=== PATIENT | male | born 1935 | race Caucasian/White ===

== ENCOUNTER → 2016-09-06 | Outpatient (CLI) | payer OTHER, MEDICARE ==
[~2016-09-06] MED LIST: ASPI81TA28 PO; HYDR25TA4 PO; LEUP30IN3 IM; LISI40TA PO; METO100T44 PO; MULT-513 PO; SIMV20TA2 PO
[2016-09-06 12:54] LABS: BLOOD UREA NITROGEN 21 mg/dl (7-18)
[2016-09-06 12:58] LABS: PROSTATE SPECIFIC ANTIGEN < 0.010 ng/ml (0.000-4.000)
== END | disposition home or self-care (01) ==
LOC: C.LABBFT 08:22
PROVIDERS: ATTEND Urology
DX: C77.5 Secondary and unspecified malignant neoplasm of intrapelvic lymph nodes (principal)

== ENCOUNTER → 2016-09-28 | Outpatient (CLI) | payer OTHER, MEDICARE ==
--- NOTE | 2016-10-06 12:07 | CODING QUERY MEDICAL NECESSITY ---
CQSUPPORTING DIAGNOSIS NEEDED A supporting diagnosis is required for the test/procedure performed on this patient in order for us to be reimbursed by the patient's insurance. Please provide a supporting diagnosis for the following test/procedure listed below next to the test name along with your signature. *If there is no additional diagnosis for this patient that would support the following test/procedure please document that below next to the test/procedure. Test(s)/Procedure(s) that require a supporting diagnosis: AB 09/28/16 [employer] D[employer] STUDY Provider Signature: Date: Thank you Elisha Vuong Health Information Management Once completed, please kindly fax back to [phone] For questions please call [phone]
== END | disposition home or self-care (01) ==
LOC: C.MAMM 07:45
PROVIDERS: ATTEND Urology
DX: C61 Malignant neoplasm of prostate (principal); C77.5 Secondary and unspecified malignant neoplasm of intrapelvic lymph nodes

== ENCOUNTER → 2017-08-08 | Outpatient (CLI) | payer OTHER, MEDICARE ==
[2017-08-08 12:28] LABS: BLOOD UREA NITROGEN 17 mg/dl (7-18); CREATININE 0.99 mg/dl (0.60-1.40)
== END | disposition home or self-care (01) ==
LOC: C.LABBFT 08:51
PROVIDERS: ATTEND Urology
DX: R32 Unspecified urinary incontinence (principal)

== ENCOUNTER 2019-01-13 13:42 | Inpatient (IN) ==
[2019-01-13] MEDS ORDERED: SODIUM CHLORIDE 0.9% 1000ML 1,000 ML IV SCH (14:00)
--- NOTE | 2019-01-13 14:14 | CT Scan Report ---
CT head/brain wo con CLINICAL HISTORY: 83 years-old Male with syncope. Acute syncope TECHNIQUE: Multiple axial CT images of the head were obtained without contrast. A dose lowering tech nique was utilized adhering to the principles of ALARA. CT DOSE: 614.27 mGy.cm COMPARISON: None. FINDINGS: No acute intracranial hemorrhage, midline shift, intracranial mass, hydrocephalus, territorial ischem ia or abnormal extra-axial collection. Age-related involutional changes. Mild patchy white matter hyp odensities suggest chronic microvascular ischemic disease. The calvarium is intact. The paranasal sinuses, mastoid air cells, and middle ear cavities are clear . IMPRESSION: No acute intracranial abnormality or calvarial fracture. The above report was generated using voice recognition software. It may contain grammatical, syntax o r spelling errors. Electronically signed by: Edward Trent M.D. 01/13/2019 2:13 PM
--- NOTE | 2019-01-13 14:15 | XRay Report ---
XR chest 1V portable HISTORY: 83 years-old Male Syncope acute syncope COMPARISON: Chest radiograph 02/11/2016 TECHNIQUE: Portable AP view of the chest FINDINGS: Cardiac silhouette is enlarged, unchanged. No overt pulmonary edema, pneumothorax, pleural effusion o r focal airspace consolidation. Minimal linear subsegmental atelectasis/scarring of the lateral left midlung is unchanged. Degenerative changes are noted about the shoulders and spine. IMPRESSION: Cardiomegaly without acute process. The above report was generated using voice recognition software. It may contain grammatical, syntax o r spelling errors. Electronically signed by: Edward Trent M.D. 01/13/2019 2:14 PM
[2019-01-13 14:20] LABS: Basophils # (auto) 0.06 K/uL (0-0.2); Basophils % (auto) 1.2 %; Eosinophils # (auto) 0.14 K/uL (0-0.5); Eosinophils % (auto) 2.9 %; Hematocrit (blood only) 40.2 % (42-52); Hemoglobin 13.7 g/dL (14.0-18.0); Immature Granulocytes # (auto) 0.02 K/uL (0.00-0.02); Immature Granulocytes % (auto) 0.4 %; Lymphocytes # (auto) 0.87 K/uL (1.2-3.4); Lymphocytes % (auto) 17.8 %; Mean Corpuscular Hemoglobin 31.1 pg (25-34); Mean Corpuscular Hgb Conc 34.1 g/dL (32-36); Mean Corpuscular Volume 91.2 fL (80-100); Mean Platelet Volume 9.9 fL (7.4-10.4); Monocytes # (auto) 0.33 K/uL (0.11-0.59); Monocytes % (auto) 6.7 %; Neutrophils # (auto) 3.47 K/uL (1.4-6.5); Platelet Count 174 K/uL (130-400); RDW Coefficient of Variation 13.4 % (11.5-14.5); RDW Standard Deviation 44.2 fL (36.4-46.3); Red Blood Count 4.41 M/uL (4.7-6.1); White Blood Count 4.89 K/uL (4.8-10.8)
[2019-01-13 14:53] LABS: Alanine Aminotransferase 36 U/L (12-78); Albumin Globulin Ratio 0.9 (0.9-2); Albumin Level 3.5 gm/dl (3.4-5.0); Alkaline Phosphatase 75 U/L (45-117); Aspartate Aminotransferase 31 U/L (15-37); BUN Creatinine Ratio 19.5 (10-20); Bilirubin,Total 0.4 mg/dl (0.2-1); Blood Urea Nitrogen 22 mg/dl (7-18); Calcium 8.6 mg/dl (8.5-10.1); Carbon Dioxide 29 mmol/L (21-32); Chloride 101 mmol/L (98-107); Creatinine Clr Calc Pharmacy 66.8 ml/min; Est GFR (African American) 70.6; Est GFR (Non-African American) 60.9; Globulin 3.8 gm/dl (2.5-4.0); Glucose 90 mg/dl (70-99); Magnesium 1.9 mg/dl (1.8-2.4); Potassium 4.6 mmol/L (3.5-5.1); Sodium 136 mmol/L (136-145); Total Protein 7.3 gm/dl (6.4-8.2); Troponin I < 0.015 ng/ml (0-0.045)
[2019-01-13 15:29] LABS: Appearance Urine Clear (Clear); Bilirubin Urine Negative (Negative); Blood Urine Negative (Negative); Color Urine Yellow; Glucose Urine UA Negative (Negative); Ketones Urine Negative (Negative); Leukocyte Esterase Urine Negative (Negative); Nitrite Urine Negative (Negative); Protein Urine Negative (Negative); Specific Gravity Urine 1.013 (1.000-1.030); Urobilinogen Urine Negative (Negative); pH Urine 7.5 (4.5-7.5)
--- NOTE | 2019-01-13 16:38 | Emergency Department Note ---
Entered by Candelaria Brown acting as a scribe for Johnathan Moss DO History of Present Illness General Chief complaint: Syncope Stated complaint: syncope Time Seen by Provider: 01/13/19 13:43 Source: patient and family (daughter) History of Present Illness Onset (ago): hour(s) 1 Location: head Pain Consistency: + other (episodic ) Quality: + other (syncopal episode) Associated symptoms: + other (Positive feeling of warmth prior to syncopal episode, eyes rolling into back of head during episode, dizziness, and lightheadednessNegative diarrhea, urinary symptoms, falling to the ground); no chest pain, no nausea/vomiting and no shortness of breath The patient is a 83 year old male who presents to the ED with complaints of a 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 As per EMS, the patient went o utside to get the mail and when he came back inside, he felt hot and had a syncopal episode. The patient states he remembers going outside to get the mail and going back inside the house. During this time, he notes he felt very warm and flush. He states he was reading the mail when he suddenly felt dizzy and lightheaded, and passed out. He is accompanied by his daughter who states the patient's eyes rolled back into his head, but it was unlike a seizure, and he was diaphoretic. She states his head hit the top corner of the stove but they caught him and lowered him to the ground. Pt denies any nausea, vomiting, diarrhea, urinary symptoms, falling to the ground, chest pain, SOB. Home Medications Home Medications Medication Instructions Recorded Confirmed Type aspirin 81 mg tablet 81 mg PO DAILY tab 10/20/18 01/13/19 History hydrochlorothiazide 25 mg tablet 25 mg PO DAILY tab 10/20/18 01/13/19 History lisinopril 40 mg tablet 40 mg PO DAILY tab 10/20/18 01/13/19 History metoprolol succinate ER 100 mg 100 mg PO HS tab 10/20/18 01/13/19 History tablet,extended release 24 hr simvastatin 20 mg tablet 20 mg PO HS tab 10/20/18 01/13/19 History Allergies Allergy/AdvReac Type Severity Reaction Status Date / Time bee venom protein (honey bee) Allergy Unknown UNKNOWN Verified 01/13/19 14:27 Penicillins Allergy Unknown RASH Verified 01/13/19 14:27 Bee sting Allergy Unknown Unknown Uncoded 01/13/19 14:27 Penicillins Allergy Unknown Unknown Uncoded 01/13/19 14:27 Wasp Allergy Unknown Unknown Uncoded 01/13/19 14:27 Past Med/Surg History Medical History Atrial fibrillation (Chronic) Prostate cancer (Acute) Surgical History No significant past surgical history Social History current occupational status: retired Feels Safe at Home: Yes Smoking Status: Former smoker Number of Years Since Quit: 30 ; Hx Alcohol Use: No Hx Substance Use: No Review of Systems See HPI for pertinent positives & negatives. and A total of 10 systems reviewed and were otherwise negative Physical Exam Vital Signs Vital Signs - 24 hr 01/13/19 13:52 01/13/19 13:54 01/13/19 13:57 Temperature 36.8 C Temperature Source Oral Sepsis Recent Fever Within 48 Hours No Sepsis Action Taken by Nursing No Action Required Pulse Rate 73 Pulse Rate [Right Finger] Pulse Rhythm [Right Finger] Pulse Strength [Right Finger] Respiratory Rate 17 Respiratory Effort / Characteristics Respiratory Depth Respiratory Pattern Blood Pressure 118/71 Blood Pressure [Right Arm] Blood Pressure Mean 86 Blood Pressure Mean [Right Arm] Blood Pressure Position [Right Arm] Pulse Oximetry 97 97 Oxygen Delivery Method Room Air Room Air Room Air 01/13/19 14:32 01/13/19 15:33 Temperature Temperature Source Sepsis Recent Fever Within 48 Hours Sepsis Action Taken by Nursing Pulse Rate Pulse Rate [Right Finger] 58 L 64 Pulse Rhythm [Right Finger] Regular Pulse Strength [Right Finger] Normal Respiratory Rate 20 18 Respiratory Effort / Characteristics Non-Labored Spontaneous Respiratory Depth Normal Respiratory Pattern Regular Blood Pressure Blood Pressure [Right Arm] 154/89 H 148/107 H Blood Pressure Mean Blood Pressure Mean [Right Arm] 110 120 Blood Pressure Position [Right Arm] Lying Pulse Oximetry 95 95 Oxygen Delivery Method Room Air Room Air GENERAL: Sitting up in bed. Wearing hospital gown. Disheveled. Non-toxic HEAD: Small contusion to the left frontal region. EYE EXAM: normal conjunctiva, PERRL and EOM's intact OROPHARYNX: no exudate, no erythema, lips, buccal mucosa, and tongue normal and mucous membranes are moist NECK: supple, no nuchal rigidity, no adenopathy, non-tender LUNGS: Clear to auscultation. Normal chest wall mechanics HEART: no murmurs, S1 normal and S2 normal ABDOMEN: abdomen soft, non-tender, normo-active bowel sounds, no masses, no rebound or guarding. BACK: Back is symmetrical on inspection and there is no deformity, no midline tenderness, no CVA tenderness. SKIN: no rashes and no bruising UPPER EXTREMITIES: upper extremities are grossly normal. LOWER EXTREMITIES: No pitting edema. NEURO EXAM: Normal sensorium, cranial nerves II-XII intact, normal speech, no weakness of arms, no weakness of legs. No drift. Finger to nose intact. Gross sensation intact. Course ED COURSE: Vital signs were reviewed and showed normotensive. The patients medical record was reviewed The above diagnostic studies were performed and reviewed. ED treatments and interventions as stated above. 1348: The patient was evaluated in room B6. A complete history and physical examination was performed. 1530: I updated the patient at this time. 1546: Discussed the patient's case wih Dr. Estelle Peña, [facility] Hospitalist. The patient will be evaluated for further management. 1550: Upon reevaluation, the patient is feeling better, I discussed my findings with the patient and he understands and agrees with the treatment plan. Based on the patients age, coexisting illnesses, exam and lab findings the decision to treat as an inpatient was made. The patient remained stable while under my care. The patient will be evaluated for further management. Administered Medications Discontinued Medications Sodium Chloride (Nss 1000ml) 1,000 mls @ 999 mls/hr IV .Q1H1M NORBERTO Stop: 01/13/19 15:00 Last Infusion: 01/13/19 15:32 Dose: 0 mls/hr Documented by: [id number] Admin: 01/13/19 14:31 Dose: 999 mls/hr Documented by: [id number] Medical Decision Making Differential Diagnosis Differential diagnosis: Etiologies such as vasovagal event, infection, hypoglycemia, electrolyte abnormalities, cardiac sources, intracerebral event, toxicologic, neurologic, as well as others were entertained. Medical Records Attestation: I reviewed the patient's medical records. Home Medications Current Medication List: was personally reviewed by me Laboratory Data Attestation: I reviewed the patient's lab results. Result diagrams: 01/13/19 14:10 01/13/19 14:10 Lab Results 01/13/19 01/13/19 01/13/19 Range/Units 14:10 14:10 15:19 WBC 4.89 (4.8-10.8) K/uL RBC 4.41 L (4.7-6.1) M/uL Hgb 13.7 L (14.0-18.0) g/dL Hct 40.2 L (42-52) % MCV 91.2 (80-100) fL MCH 31.1 (25-34) pg MCHC 34.1 (32-36) g/dL RDW Std Deviation 44.2 (36.4-46.3) fL RDW Coeff of [place] 13.4 (11.5-14.5) % Plt Count 174 (130-400) K/uL MPV 9.9 (7.4-10.4) fL Immature Gran % (Auto) 0.4 % Neut % (Auto) 71.0 % Lymph % (Auto) 17.8 % [place] % (Auto) 6.7 % Eos % (Auto) 2.9 % Baso % (Auto) 1.2 % Immature Gran # (Auto) 0.02 (0.00-0.02) K/uL Neut # (Auto) 3.47 (1.4-6.5) K/uL Lymph # (Auto) 0.87 L (1.2-3.4) K/uL [place] # (Auto) 0.33 (0.11-0.59) K/uL Eos # (Auto) 0.14 (0-0.5) K/uL Baso # (Auto) 0.06 (0-0.2) K/uL Sodium 136 (136-145) mmol/L Potassium 4.6 (3.5-5.1) mmol/L Chloride 101 (98-107) mmol/L Carbon Dioxide 29 (21-32) mmol/L Anion Gap 6.0 (3-11) BUN 22 H (7-18) mg/dl Creatinine 1.10 (0.6-1.4) mg/dl Est Cr Clr Drug Dosing 66.8 ml/min Est GFR ( Amer) 70.6 Est GFR (Non-Af Amer) 60.9 BUN/Creatinine Ratio 19.5 (10-20) Glucose 90 (70-99) mg/dl Calcium 8.6 (8.5-10.1) mg/dl Magnesium 1.9 (1.8-2.4) mg/dl Total Bilirubin 0.4 (0.2-1) mg/dl AST 31 (15-37) U/L ALT 36 (12-78) U/L Alkaline Phosphatase 75 (45-117) U/L Troponin I < 0.015 (0-0.045) ng/ml Total Protein 7.3 (6.4-8.2) gm/dl Albumin 3.5 (3.4-5.0) gm/dl Globulin 3.8 (2.5-4.0) gm/dl Albumin/Globulin Ratio 0.9 (0.9-2) TSH 2.080 (0.300-4.500) uIu/ml Specimen Hemolysis Urine Color Yellow Urine Appearance Clear (Clear) Urine pH 7.5 (4.5-7.5) Ur Specific [place] 1.013 (1.000-1.030) Urine Protein Negative (Negative) Urine Glucose (UA) Negative (Negative) Urine Ketones Negative (Negative) Urine Blood Negative (Negative) Urine Nitrite Negative (Negative) Urine Bilirubin Negative (Negative) Urine Urobilinogen Negative (Negative) Ur Leukocyte Esterase Negative (Negative) Imaging Data Radiologist's Impression: Radiology results as stated below per my review and the radiologist's interpretation: XR chest 1V portable HISTORY: 83 years-old Male Syncope acute syncope COMPARISON: Chest radiograph 02/11/2016 TECHNIQUE: Portable AP view of the chest FINDINGS: Cardiac silhouette is enlarged, unchanged. No overt pulmonary edema, pneumothorax, pleural effusion or focal airspace consolidation. Minimal linear subsegmental atelectasis/scarring of the lateral left midlung is unchanged. Degenerative changes are noted about the shoulders and spine. IMPRESSION: Cardiomegaly without acute process. The above report was generated using voice recognition software. It may contain grammatical, syntax or spelling errors. Electronically signed by: Edward Trent M.D. 01/13/2019 2:[address] head/brain wo con CLINICAL HISTORY: 83 years-old Male with syncope. Acute syncope TECHNIQUE: Multiple axial CT images of the head were obtained without contrast. A dose lowering technique was utilized adhering to the principles of ALARA. CT DOSE: 614.27 mGy.cm COMPARISON: None. FINDINGS: No acute intracranial hemorrhage, midline shift, intracranial mass, hydrocephalus, territorial ischemia or abnormal extra-axial collection. Age- related involutional changes. Mild patchy white matter hypodensities suggest chronic microvascular ischemic disease. The calvarium is intact. The paranasal sinuses, mastoid air cells, and middle ear cavities are clear. IMPRESSION: No acute intracranial abnormality or calvarial fracture. The above report was generated using voice recognition software. It may contain grammatical, syntax or spelling errors. Electronically signed by: Edward Trent M.D. 01/13/2019 2:13 PM ECG Data Attestation: I personally reviewed and interpreted this ECG as follows: Indication: syncope Rate (beats per minute): 66 Findings: + other (normal axis) and + T-wave inversion (Anterior and lead III); no PVC Comparison ECG Date: from (02/11/16) Change: no significant change Blood Pressure Blood Pressure Findings: Normal blood pressure Blood Pressure Disposition: did not require urgent referral MDM Narrative Patient is an 83-year-old male who presents the ER for syncopal episode about an hour prior to arrival. He notes he became lightheaded and passed out. There is no seizure activity. He was lowered to the ground but did hit his head off the counter. Patient denied any chest pain or shortness of breath. He was brought in by EMS. By the medics he was found to be bradycardic with heart rate in the 30sx2. IV was established blood work was obtained and showed no significant leukocytosis or anemia. BMP along with LFTs bilirubin troponin magnesium and TSH was unremarkable. UA was negative. CT head was negative. EKG was nondiagnostic. Chest x-ray without any focal infiltrate. Patient was updated bedside and discussed with hospitalist and admitted for further work-up for syncope with bradycardia. Impression & Plan Syncope, Bradycardia, Atrial fibrillation, Contusion of head Discharge Plan Visit Data Chief Complaint: Syncope Stated Complaint: syncope ED Provider: Johnathan Moss Discharge Problem: Syncope, Bradycardia, Atrial fibrillation, Contusion of head Patient Disposition: Being Evaluated by Hospitalist Forms Stand Alone Forms: [facility] Prescriptions Prescriptions: No Action lisinopril 40 mg tablet 40 mg PO DAILY RF: 0 hydrochlorothiazide 25 mg tablet 25 mg PO DAILY RF: 0 aspirin 81 mg tablet 81 mg PO DAILY RF: 0 simvastatin 20 mg tablet 20 mg PO HS RF: 0 metoprolol succinate 100 mg tablet extended release 24 hr 100 mg PO HS RF: 0 Referrals Referrals: Dio Soni III, MD [Primary Care Provider] - The scribe's documentation has been prepared under my direction and personally reviewed by me in its entirety. I confirm that the note above accurately reflects all work, treatment, procedures, and medical decision making performed by me.
--- NOTE | 2019-01-13 16:39 | History & Physical Report ---
Date of Service January 13, 2019 Assessment & Plan (1) Syncope: Uncertain etiology, noted to be bradycardic to the 30s on arrival but improved to 60s-70s s/p IVF Possible vasovagal response to being overheated Monitor on tele Trop neg x1, serials pending ECHO pending CXR, UA neg for infection CBC, PRP WNL TSH WNL t/c lyme testing if ongoing issues CT head neg for acute (2) Bradycardia: As above (3) Atrial fibrillation: continue home meds Aspirin 81mg (4) Prostate CA: Follows with Dr. Christine Initial dx was 25 yrs ago, s/p prostatectomy States he was on leupron about a year ago but PSA was WNL and he was gaining weight, so this was stopped Follows Q6 months (5) HTN (hypertension): continue home meds (6) Hyperlipidemia: continue home meds (7) DVT prophylaxis: SCDs, aspirin Avoid more aggressive Rx given likely short duration of admission History of Present Illness Primary Care Provider: Dio Soni MD 83 y/o M c/o syncopal episode. Pt states he has been in his usual state of health. 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 He states their house is set of 70 degrees and he thought it was quite warm this morning. He was about to drink coffee, but then noted how over heated he felt quite sweaty. He decided to have lemonade instead. He went outside were it was cooler to drink this. He felt a bit better and came inside. He put his coffee in the microwave to warm it but then suddenly felt unsteady. 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 She came in but pt had further LOC and fell to the floor. He did hit the L side of his head on the stove. He states he was told he was out for about 2 minutes. He was brought to the ED for further eval. Pt was noted to be bradycardic to the 30s on arrival, however this improved to the 60s s/p IVF. Pt states he currently feels fine. Pt denies fever, SOB, chest pain, abd pain, n/v/c/d, LE pain or swelling. Allergies Allergy/AdvReac Type Severity Reaction Status Date / Time bee venom protein (honey bee) Allergy Unknown UNKNOWN Verified 01/13/19 14:27 Penicillins Allergy Unknown RASH Verified 01/13/19 14:27 Bee sting Allergy Unknown Unknown Uncoded 01/13/19 14:27 Penicillins Allergy Unknown Unknown Uncoded 01/13/19 14:27 Wasp Allergy Unknown Unknown Uncoded 01/13/19 14:27 Home Medications Home Medications Medication Instructions Recorded Confirmed Type aspirin 81 mg tablet 81 mg PO DAILY tab 10/20/18 01/13/19 History hydrochlorothiazide 25 mg tablet 25 mg PO DAILY tab 10/20/18 01/13/19 History lisinopril 40 mg tablet 40 mg PO DAILY tab 10/20/18 01/13/19 History metoprolol succinate ER 100 mg 100 mg PO HS tab 10/20/18 01/13/19 History tablet,extended release 24 hr simvastatin 20 mg tablet 20 mg PO HS tab 10/20/18 01/13/19 History Past Med/Surg History Medical History Atrial fibrillation (Chronic) Prostate cancer (Acute) Surgical History No significant past surgical history Family History Father Myocardial infarction Other No pertinent family history Social History current occupational status: retired Feels Safe at Home: Yes Smoking Status: Former smoker Number of Years Since Quit: 30 ; Hx Alcohol Use: No Hx Substance Use: No Review of Systems Review of Systems: Pertinent positives and negatives reviewed in HPI--all others negative Physical Exam Constitutional: WD/WN, vitals as above Eyes: normal visual vaca by confrontation and + anicteric sclerae Neck: normal visual inspection and trachea midline Respiratory: normal respiratory effort, lungs clear to auscultation Cardiovascular: Rate/Rhythm: regular rate; + abnormal rhythm Gastrointestinal (Abdomen): Inspection/Auscultation: abdomen not distended Percussion/Palpation: abdomen soft; abdomen nontender Musculoskeletal: Head/Neck/Chest: normocephalic and head atraumatic negative for edema, peripheral pulses intact Skin: no rashes, warm and dry Neurologic: awake; not confused Speech / Cognition: normal speech Psychiatric: A+Ox3, euthymic affect Results & Data Vital Signs (Past 12 Hours) Vital Signs Temp Pulse Pulse Resp BP BP Pulse Ox 01/13/19 15:33 64 18 148/107 H 95 01/13/19 14:32 58 L 20 154/89 H 95 01/13/19 13:57 97 01/13/19 13:52 36.8 C 73 17 118/71 97 Diagnostic Findings CXR: neg for acute CT head: neg for acute ECG Rhythm: atrial fibrillation Code Status & VTE Plan Code Status Full code, although pt states no prolonged mechanical life support, feeding tubes, etc VTE Prophylaxis Plan VTE Prophylaxis will be ordered: Yes PG Care Time/CCT Total # of Minutes Spent Total Time Spent with Patient: Total time spent is greater than 50% in coordination of care (as documented) at patient's floor/unit and/or counseling p atient: (1) Syncope Syncope type: unspecified Qualified Code(s): R55 - Syncope and collapse
[2019-01-13] MEDS ORDERED: ONDANSETRON INJ 2 MG/ML 2 ML VIAL IV PRN (18:09)
[2019-01-13] MEDS ORDERED: MAGNESIUM HYDROXIDE SUSP 30 ML UDC PO PRN (18:09)
[2019-01-13] MEDS ORDERED: ACETAMINOPHEN 325 MG TAB PO PRN (18:09)
[2019-01-13] MEDS ORDERED: SIMVASTATIN 20 MG TAB PO SCH (21:00)
[2019-01-13] MEDS ORDERED: METOPROLOL SUCC 50MG EXT REL TAB PO SCH (21:00)
[2019-01-14] MEDS ORDERED: lisinopriL 40 MG TAB PO SCH (09:00)
[2019-01-14] MEDS ORDERED: ASPIRIN 81 MG ECTAB PO SCH (09:00)
[2019-01-14] MEDS ORDERED: hydroCHLOROthiazide 25 MG TAB PO SCH (09:00)
--- NOTE | 2019-01-14 19:00 | Discharge Summary ---
Date of Service January 14, 2019 Admission HPI Per Admitting Provider 83 y/o M c/o syncopal episode. Pt states he has been in his usual state of health. 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 He states their house is set of 70 degrees and he thought it was quite warm this morning. He was about to drink coffee, but then noted how over heated he felt quite sweaty. He decided to have lemonade instead. He went outside were it was cooler to drink this. He felt a bit better and came inside. He put his coffee in the microwave to warm it but then suddenly felt unsteady. 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 She came in but pt had further LOC and fell to the floor. He did hit the L side of his head on the stove. He states he was told he was out for about 2 minutes. He was brought to the ED for further eval. Pt was noted to be bradycardic to the 30s on arrival, however this improved to the 60s s/p IVF. Pt states he currently feels fine. Pt denies fever, SOB, chest pain, abd pain, n/v/c/d, LE pain or swelling. Principal Diagnosis Syncopemost likely vasovagal, but also concerned about elements of bradycardia Discharge Exam In general he is awake and alert pleasant no distress. HEENT normocephalic atraumatic mucous membranes are moist. Breathing unlabored no accessory muscle use good effort. Skin shows no rashes no pallor or icterus. No focal neurologic deficits. EKG shows A. fib. He did have a 2.1-second pause on the monitor. Echocardiogram noted, no concerning findings Discharge Data Allergies Allergy/AdvReac Type Severity Reaction Status Date / Time bee venom protein (honey bee) Allergy Unknown UNKNOWN Verified 01/13/19 14:27 Penicillins Allergy Unknown RASH Verified 01/13/19 14:27 Bee sting Allergy Unknown Unknown Uncoded 01/13/19 14:27 Penicillins Allergy Unknown Unknown Uncoded 01/13/19 14:27 Wasp Allergy Unknown Unknown Uncoded 01/13/19 14:27 Consultations 01/13/19 15:37 ED Decision to Admit Stat Ordered Studies 01/13/19 13:51 CT head/brain wo con Stat Hospital Course (1) Syncope: His history is mostly consistent with a vasovagal response, and although he did hit his head on the way down, he seems to have suffered no significant fall out. The concern is that his heart rate was also 30s whenever EMS found him and he did have a 2.1-second pause, raising the concern that bradycardia may also have been a contributing factor. See below otherwise. He is stable for home. (2) Bradycardia: See above in terms of his 30 rate and the 2.1-second pause, because he is on a fairly significant dose of metoprolol and he is getting older, and his dose has been the same for quite a while, we discussed reducing the dose to 75 mg daily and ongoing following. I discussed that it would be prudent to have outpatient rhythm monitoring and will ask for this to be arranged through his sales and service associate. I suspect simply reducing the dose will help remedy this problem, although we did discuss there is a very outside chance this could progress to rhythm issues requiring a pacemaker. (3) Afib: Rate easily controlled, making highly unlikely to have RVR with a reduction of his metoprolol from 100 mg to 75, otherwise as above. Total Time Total Time Spent Total Time Spent (In Minutes): Greater than 30 Discharge Plan Discharge Items Patient Disposition: Home - Self-Care Reason For Visit: SYNCOPE Discharge Diagnosis: syncope (fainting spell) - see below Activity: Resume your previous activity Non-emergency contact: Primary Care Provider and Checker Call non-emergency contact if: you have any medication questions and your symptoms worsen Follow-up/Referrals: Dio Soni III, MD [Primary Care Provider] - Diet: Regular Addtl Attending Provider Instructions: syncope (fainting) -your fainting spell fit the most with what is called a "vasovagal" response - where blood vessels dilate when they shouldn't, causing a transient drop in blood pressure, made worse by heart rates not speeding up to keep up with the drop in pressure. -however, we also saw a few times where your heart rates were inappropriately slow -- and this can also lead to lightheadedness and occasional faints. for now, we'll lower the dose of your metoprolol to 75mg (it's a medication that typically is used to slow heart rates down with atrial fibrillation - so as we discussed, given that you've been on that dose for quite a while, it's possible that as you've gotten older you metabolize it more slowly and don't need as much as before) -- and then we'll ask Dr Barrera to get you set up for a heart monitor to keep an eye on heart rates out of the hospital for a week or so -if you feel weak/lightheaded/dizzy again, definitely get seen, but hopefully simply reducing the dose should be enough to keep you out of trouble Stand-Alone Forms: My [facility] Medications and DC Order Prescriptions: New metoprolol succinate [Toprol XL] 50 mg tablet extended release 24 hr 75 mg PO DAILY Qty: 45 RF: 0 Continued lisinopril 40 mg tablet 40 mg PO DAILY RF: 0 hydrochlorothiazide 25 mg tablet 25 mg PO DAILY RF: 0 aspirin 81 mg tablet 81 mg PO DAILY RF: 0 simvastatin 20 mg tablet 20 mg PO HS RF: 0 Discontinued metoprolol succinate 100 mg tablet extended release 24 hr 100 mg PO HS RF: 0 Discharge Orders: Discharge Order (Routine); Ordered 01/14/19 Ordered By: Johnathan Brown Admission Data Admit Date/Time: 01/13/19 16:32 Attending Provider: Johnathan Brown Admit Provider: Estelle Peña Primary Care Provider: Dio Soni III Other Providers: Estelle Peña Other Interventions: Discharge Summary Assessment (RN) Last Done: 01/14/19 16:00 DC Date/Time DO NOT enter until pt leaves facility: 01/14/19 17:16
== END 2019-01-14 17:16 | disposition home or self-care (01) | DRG 312 ==
LOC: ED 13:42 → 2W 16:32 → SUATTDRO 16:32 → 2W 17:17

== ENCOUNTER 2020-03-22 11:21 | Inpatient (IN) ==
[2020-03-22 12:29] LABS: Basophils # (auto) 0.01 K/uL (0-0.2); Basophils % (auto) 0.4 %; Eosinophils # (auto) 0.01 K/uL (0-0.5); Eosinophils % (auto) 0.4 %; Hematocrit (blood only) 37.9 % (42-52); Hemoglobin 13.2 g/dL (14.0-18.0); Lymphocytes # (auto) 0.38 K/uL (1.2-3.4); Lymphocytes % (auto) 14.1 %; Mean Corpuscular Hemoglobin 30.7 pg (25-34); Mean Corpuscular Hgb Conc 34.8 g/dL (32-36); Mean Corpuscular Volume 88.1 fL (80-100); Mean Platelet Volume 9.8 fL (7.4-10.4); Monocytes # (auto) 0.28 K/uL (0.11-0.59); Monocytes % (auto) 10.4 %; Neutrophils # (auto) 2.02 K/uL (1.4-6.5); Neutrophils % (auto) 74.7 %; Platelet Count 124 K/uL (130-400); RDW Coefficient of Variation 13.8 % (11.5-14.5); RDW Standard Deviation 44.4 fL (36.4-46.3)
[2020-03-22] MEDS ORDERED: SODIUM CHLORIDE 0.9% 1000ML 500 ML IV ONE (12:37)
[2020-03-22] MEDS ORDERED: SODIUM CHLORIDE 0.9% 500 ML IV SCH (12:45)
[2020-03-22 12:54] LABS: Alanine Aminotransferase 32 U/L (12-78); Albumin Level 3.3 gm/dl (3.4-5.0); Aspartate Aminotransferase 37 U/L (15-37); BUN Creatinine Ratio 19.2 (10-20); Blood Urea Nitrogen 20 mg/dl (7-18); Calcium 8.3 mg/dl (8.5-10.1); Carbon Dioxide 28 mmol/L (21-32); Chloride 97 mmol/L (98-107); Creatinine Clr Calc Pharmacy 68.6 ml/min; Est GFR (African American) 75.9; Est GFR (Non-African American) 65.5; Glucose 100 mg/dl (70-99); Potassium 3.9 mmol/L (3.5-5.1); Sodium 131 mmol/L (136-145)
[2020-03-22 12:59] LABS: Albumin Globulin Ratio 0.9 (0.9-2); Alkaline Phosphatase 80 U/L (45-117); Bilirubin,Total 0.5 mg/dl (0.2-1); Globulin 3.9 gm/dl (2.5-4.0); Total Protein 7.2 gm/dl (6.4-8.2); Troponin I < 0.015 ng/ml (0-0.045)
--- NOTE | 2020-03-22 13:14 | XRay Report ---
SINGLE VIEW CHEST CLINICAL HISTORY: Fever. FINDINGS: 2 AP, portable, upright chest radiographs are compared to study dated 02/22/2019. The exami nation is degraded by portable technique and patient rotation. The heart is enlarged noting atherosc lerotic calcification of the thoracic aorta. The pulmonary vasculature is noncongested. Enlargement o f the central pulmonary arteries suggests pulmonary artery hypertension. There are subtle hazy inters titial airspace opacities seen bilaterally. No large pleural effusion or pneumothorax is seen. The sk eletal structures are osteopenic. The bony thorax is grossly intact. IMPRESSION: 1. Cardiomegaly without radiographic evidence of congestive failure. 2. There are subtle hazy interstitial airspace opacities seen bilaterally. Correlate clinically for e vidence of a mild infectious/inflammatory pneumonitis. ACT 112: Negative or not required by law. Electronically signed by: Solomon Hector M.D. 03/22/2020 1:13 PM
--- NOTE | 2020-03-22 13:34 | CT Scan Report ---
CT SCAN OF THE BRAIN WITHOUT IV CONTRAST CLINICAL HISTORY: Syncope. Head injury. COMPARISON STUDY: CT of the brain dated 01/13/2019. TECHNIQUE: Unenhanced axial CT scan of the brain is performed from the vertex to the skull base. A do se lowering technique was utilized adhering to the principles of ALARA. CT DOSE: 614.27 mGy.cm FINDINGS: Brain parenchyma: There are age-related involutional changes noting mild subcortical and periventric ular microangiopathic change. There is no hemorrhage, mass effect, or evidence of acute territorial i schemia by CT criteria. Gaona-white matter differentiation is preserved. No extra-axial fluid collecti on is seen. Ventricles, sulci, cisterns: Prominent secondary to involutional change. Intracranial vasculature: Intracranial vessels at the skull base are normal as imaged. Calvarium: The skeletal structures are osteopenic. No depressed calvarial fracture is identified. Sinuses and mastoids: The visualized paranasal sinuses are clear. There is a small right mastoid effu cyntiha. The left mastoid air cells are well pneumatized. Orbits: The bony orbits are grossly intact. IMPRESSION: There is no hemorrhage, mass effect, or evidence of acute territorial ischemia by CT crit óscar. ACT 112: Negative or not required by law. Electronically signed by: Solomon Hector M.D. 03/22/2020 1:32 PM
[2020-03-22] MEDS ORDERED: DEXAMETHASONE SOD INJ 10 MG/ML VIAL IV ONE (13:58)
--- NOTE | 2020-03-22 14:33 | History & Physical Report ---
Date of Service March 22, 2020 Assessment & Plan (1) Syncope: Recurrent history of such - usually once a year. Suspected orthostasis/vasovagal in the setting of COVID-19, diarrhea and antihypertensives and having a shower. Monitor on telemetry for pauses, bradycardia - will continue his usual dose of metoprolol. Will continue on his usual metoprolol succinate but hold HCTZ. UA pending to assess for UTI - although no specific symptoms of this. (2) COVID-19: Dexamethasone given in ER however given lack of hypoxia will hold further doses of this given no hypoxia. (3) Diarrhea: NSS 1L overnight. Encourage PO intake after this. (4) Atrial fibrillation: No anticoagulation chronically due to recurrent rectal bleeding and hematuria. Rate control with metoprolol succinate. (5) HTN (hypertension): Continue lisinopril 40mg PO daily, hold HCTZ due to current dehydration. Monitor orthostatics as above. (6) Hyperlipidemia: Continue simvastatin 20mg PO HS (7) DVT prophylaxis: No anticoagulation secondary to recurrent rectal bleeds and hematuria per patient daughter. No SCDs due to risk of falls. Admission and Anticipated Discharge Date Admission Date: 03/22/2020 History of Present Illness Chief Complaint: Fall Primary Care Provider: Dio Soni MD Nash Singletary is an 84 year old male who presents to the ER after a fall. He reports this occurred earlier this morning. Unclear if he had symptoms prior to his fall after coming out of the shower however he did note feeling " strange" and he should be more careful. He denies any definitive chest pain, shortness of breath or dizziness. He does note 2 weeks of symptoms concerning for COVID- 19 including chills, productive cough " with a bit of redness" and now having diarrhea for the last 2 days. He has continued to take his medication including hydrochlorothiazide however has not taken any medications today. He completely lost consciousness and woke up with blood around his head. He denies any other injuries and currently denies any headache. Discussed with his daughter (Honey) who is a nurse at the [employer]. Patient deferred medical decisions to his daughter. She reports he is DNR/DNI. Request UA as prior urine infections have caused the patient to have a syncopal event. She reports he has a syncopal event usually once a year when he gets too dehydrated and has general poor oral intake therefore suspects with his diarrhea and poor oral intake likely lead to him passing out after having a shower. In the ER he had a chest x-ray concerning for subtle hazy interstitial airspace opacities bilaterally, reassuringly his CT head was negative for acute intracranial injury. He was given a dose of dexamethasone 6 mg IV as intermittently his O2 sats drop below 94% however currently maintaining O2 sats at rest 95 to 96% on room air. He was referred to medicine for admission and ongoing management for COVID-19, orthostatic syncope, loss of consciousness, closed head trauma. Allergies Allergy/AdvReac Type Severity Reaction Status Date / Time bee venom protein (honey bee) Allergy Unknown UNKNOWN Verified 03/19/20 11:27 Penicillins Allergy Unknown RASH Verified 03/19/20 11:27 Bee sting Allergy Unknown Unknown Uncoded 02/02/20 00:41 Wasp Allergy Unknown Unknown Uncoded 02/02/20 00:41 Home Medications Medication Instructions Recorded Confirmed Type hydrochlorothiazide 25 mg tablet 25 mg PO QAM tab 10/20/18 03/22/20 History lisinopril 40 mg tablet 40 mg PO QAM tab 10/20/18 03/22/20 History simvastatin 20 mg tablet 20 mg PO HS tab 10/20/18 03/22/20 History metoprolol succinate 100 mg 100 mg PO HS 05/28/19 03/22/20 History tablet,extended release 24 hr ibuprofen 200 mg tablet 800 mg PO Q8H PRN tab 11/26/19 03/22/20 History aspirin [Aspirin Low Dose] 81 mg PO QAM 02/02/20 03/22/20 History vaqnfwauszya-[id number] 1 tab PO DAILY 02/02/20 03/22/20 History [Centrum Silver] Past Med/Surg History Medical History (Updated 03/23/20 @ 06:58 by Duane Celeste MD) Atrial fibrillation Diverticulosis of colon Prostate cancer Syncope Surgical History History of prostatectomy 1996 Family History Father Myocardial infarction Mother Diabetes Denies family history of Stroke Social History Smoking Status: Former smoker Tobacco Type: Cigarettes Number of Years Since Quit: 30; Hx Alcohol Use: No Hx Substance Use: No Preferred Language: Mongolian Communication Ability: Effective Online Media Director Required: No Beliefs That Will Affect Care: None marital status: / Current Living Situation: Alone current occupational status: retired Feels Safe at Home: Yes Safety Concerns: Feels Safe At This Time Assistive Devices: Cane Review of Systems Review of Systems: All systems reviewed & are unremarkable except as noted in HPI & below Physical Exam Constitutional: well developed and well nourished; no acute distress Eyes: PERRL, conjunctivae normal, anicteric sclerae ENMT: external ear and nose normal, oropharynx normal Respiratory: normal respiratory effort, lungs clear to auscultation Cardiovascular: Rate/Rhythm: regular rate and + irregularly irregular Heart Sounds: no murmur Extremities: normal capillary refill; no calf tenderness and no pedal edema Gastrointestinal (Abdomen): normal bowel sounds, soft, nontender, no hepatosplenomegaly Musculoskeletal: no cyanosis or clubbing, extremities motor strength 5/5 Skin: Trauma: + laceration (1 cm laceration, nonbleeding above left eye) Neurologic: moves all extremities and awake; no focal motor deficits (No lateralizing deficit) and not confused Results & Data Results & Data ([facility]) Vital Signs (Past 12 Hours) Vital Signs Temp Pulse Resp BP Pulse Ox 03/22/20 13:01 96 H 20 94 03/22/20 13:00 94 H 22 164/99 H 94 03/22/20 12:50 89 20 92 03/22/20 12:40 104 H 17 91 03/22/20 12:30 90 33 H 94 03/22/20 12:27 123 H 29 H 145/78 H 03/22/20 12:26 102 H 22 165/90 H 03/22/20 12:25 95 H 23 162/112 H 03/22/20 12:20 105 H 28 H 03/22/20 12:10 103 H 16 03/22/20 12:07 100 H 16 155/74 H 97 03/22/20 12:04 96 H 25 H 03/22/20 11:22 36.8 C 107 H 18 161/97 H 92 Diagnostic Findings SINGLE VIEW CHEST IMPRESSION: 1. Cardiomegaly without radiographic evidence of congestive failure. 2. There are subtle hazy interstitial airspace opacities seen bilaterally. Correlate clinically for evidence of a mild infectious/inflammatory pneumonitis. CT SCAN OF THE BRAIN WITHOUT IV CONTRAST IMPRESSION: There is no hemorrhage, mass effect, or evidence of acute territorial ischemia by CT criteria. Medications Administered ER medications given: Dexamethasone 6 mg IV ECG Indication: syncope Rate (beats per minute): 98 Rhythm: atrial fibrillation Findings: + other (T wave flattening in lateral) and + T-wave inversion (Inferior) Comparison ECG Date: from (January 14, 2019) Change: no significant change Code Status & VTE Plan Code Status DNR/DNI VTE Prophylaxis Plan VTE Prophylaxis will be ordered: No Reason for no VTE drug order: Drug declined by patient (Declined by daughter) PG Care Time/CCT Total # of Minutes Spent Total Time Spent with Patient: Total time spent is greater than 50% in coordination of care (as documented) at patient's floor/unit and/or counseling patient: Coding Level of Care Code 61436 Initial Inpt Care Lvl 3 Diagnoses Syncope R55 COVID-19 U07.1 Diarrhea R19.7 Atrial fibrillation I48.91 HTN (hypertension) I10 Hyperlipidemia E78.5 DVT prophylaxis Z29.9
[2020-03-22] MEDS ORDERED: lisinopril 40 MG TAB PO STA (14:39)
--- NOTE | 2020-03-22 16:38 | Emergency Department Note ---
History of Present Illness General Chief complaint: Illness Stated complaint: syncope Source: patient, family (Daughter) and RN notes reviewed Mode of arrival: ambulatory Limitations: no limitations History of Present Illness Provider complaint: Syncopal episode, diarrhea Maximum Pain Intensity: 0 This patient is an 84-year-old male who presents emergency department with complaints of a syncopal episode while in the shower today. He states for the last 2 to 3 days he has been having chills and sweats. He states it is difficult to get sequins spooler the afternoon and evening. He did have diarrhea yesterday. He got into the shower today and passed out. He states he does not know how long he was out as he lives at home alone. He woke up with some blood around his head. He does take a baby aspirin daily. Patient states he goes to the "[employer] dog house" every day for breakfast. He denies any specific urinary symptoms. He denies any cough or shortness of breath. Home Medications Medication Instructions Recorded Confirmed Type hydrochlorothiazide 25 mg tablet 25 mg PO QAM tab 10/20/18 03/22/20 History lisinopril 40 mg tablet 40 mg PO QAM tab 10/20/18 03/22/20 History simvastatin 20 mg tablet 20 mg PO HS tab 10/20/18 03/22/20 History metoprolol succinate 100 mg 100 mg PO HS 05/28/19 03/22/20 History tablet,extended release 24 hr ibuprofen 200 mg tablet 800 mg PO Q8H PRN tab 11/26/19 03/22/20 History aspirin [Aspirin Low Dose] 81 mg PO QAM 02/02/20 03/22/20 History ndveikqirghp-[id number] 1 tab PO DAILY 02/02/20 03/22/20 History [Centrum Silver] Allergies Allergy/AdvReac Type Severity Reaction Status Date / Time bee venom protein (honey bee) Allergy Unknown UNKNOWN Verified 03/19/20 11:27 Penicillins Allergy Unknown RASH Verified 03/19/20 11:27 Bee sting Allergy Unknown Unknown Uncoded 02/02/20 00:41 Wasp Allergy Unknown Unknown Uncoded 02/02/20 00:41 Past Med/Surg History Medical History (Updated 03/23/20 @ 14:23 by Danna Hicks MD) Atrial fibrillation Diverticulosis of colon Prostate cancer Syncope Surgical History History of prostatectomy 1996 Family History Father Myocardial infarction Mother Diabetes Denies family history of Stroke Social History Smoking Status: Former smoker Tobacco Type: Cigarettes Number of Years Since Quit: 30; Hx Alcohol Use: No Hx Substance Use: No Preferred Language: Upper Sorbian Communication Ability: Effective Abstracter Required: No Beliefs That Will Affect Care: None marital status: / Current Living Situation: Alone current occupational status: retired Feels Safe at Home: Yes Safety Concerns: Feels Safe At This Time Assistive Devices: Cane Review of Systems See HPI for pertinent positives & negatives. and A total of 10 systems reviewed and were otherwise negative Physical Exam Vital Signs Vital Signs - 24 hr 03/22/20 14:30 03/22/20 14:31 03/22/20 14:40 Pulse Rate 101 H 95 H 90 Pulse Rate from SpO2 Sensor 101 H 100 H 91 H Respiratory Rate 26 H 17 25 H Blood Pressure 172/123 H Blood Pressure Mean 129 Pulse Oximetry 96 96 96 03/22/20 14:50 03/22/20 15:00 03/22/20 15:01 Pulse Rate 94 H 100 H 87 Pulse Rate from SpO2 Sensor 97 H 96 H 90 Respiratory Rate 22 24 18 Blood Pressure 188/108 H Blood Pressure Mean 130 Pulse Oximetry 97 95 95 03/22/20 15:10 Pulse Rate 97 H Pulse Rate from SpO2 Sensor 99 H Respiratory Rate 21 Blood Pressure Blood Pressure Mean Pulse Oximetry 95 Vital signs reviewed. General: Somewhat ill-appearing 84-year-old male, in no significant distress. HEENT: No scleral icterus, conjunctival injection, PERRLA, neck supple. 1 cm laceration noted to the lateral left orbital rim, nongaping, nonbleeding Cardiovascular: Irregular but rate controlled, no extra sounds Pulmonary: Clear to auscultation bilaterally, normal work of breathing. Abdomen: Soft, nontender, nondistended, positive bowel sounds. Musculoskeletal: Atraumatic, no peripheral edema. Neurologic: Patient awake alert and oriented x 3 Skin: Warm, dry, no rash Course Administered Medications Aspirin (Aspirin 81 Mg Ectab) 81 mg PO QAM NORBERTO Stop: 04/22/20 08:59 Last Admin: 03/23/20 09:18 Dose: 81 mg Documented by: [id number] Lisinopril (Lisinopril 40 Mg Tab) 40 mg PO QAM NORBERTO Stop: 04/22/20 08:59 Last Admin: 03/23/20 08:34 Dose: 40 mg Documented by: [id number] Metoprolol Succinate (Metoprolol Succ 50mg Ext Rel Tab) 100 mg PO HS NORBERTO Stop: 04/21/20 20:59 Last Admin: 03/22/20 20:43 Dose: 100 mg Documented by: [id number] Multivitamins/Minerals (Cerovite Adv Formula Tab) 1 tab PO DAILY NORBERTO Stop: 04/22/20 08:59 Last Admin: 03/23/20 08:34 Dose: 1 tab Documented by: [id number] Simvastatin (Simvastatin 20 Mg Tab) 20 mg PO [facility] Stop: 04/21/20 20:59 Last Admin: 03/22/20 20:42 Dose: 20 mg Documented by: [id number] Discontinued Medications Dexamethasone (Dexamethasone Sod Inj 10 Mg/Ml Vial) 6 mg IV NOW ONE Stop: 03/22/20 13:59 Last Admin: 03/22/20 14:36 Dose: 6 mg Documented by: [id number] Sodium Chloride (Nss 1000ml) 500 mls @ 999 mls/hr IV .Q31M ONE Stop: 03/22/20 13:07 Last Infusion: 03/22/20 14:36 Dose: 0 mls/hr Documented by: [id number] Admin: 03/22/20 13:37 Dose: 999 mls/hr Documented by: [id number] Sodium Chloride (Nss) 500 mls @ 125 mls/hr IV .Q4H NORBERTO Stop: 03/22/20 16:44 Last Infusion: 03/23/20 01:53 Dose: 0 mls/hr Documented by: [id number] Infusion: 03/22/20 17:10 Dose: 0 mls/hr Documented by: [id number] Admin: 03/22/20 14:36 Dose: 125 mls/hr Documented by: [id number] Lisinopril (Lisinopril 40 Mg Tab) 40 mg PO ONE STA Stop: 03/22/20 14:40 Last Admin: 03/22/20 15:26 Dose: 40 mg Documented by: [id number] Medical Decision Making Differential Diagnosis Viral syndrome, Covid, otitis, pharyngitis, pneumonia, influenza, meningitis, urinary tract infection, sepsis, bacteremia, as well as other pathologies. Medical Records Attestation: I reviewed the patient's medical records. Home Medications Current Medication List: was personally reviewed by me Laboratory Data Attestation: I reviewed the patient's lab results. Result diagrams: 03/23/20 06:55 03/23/20 06:55 Lab Results 03/22/20 03/22/20 03/22/20 Range/Units 12:17 12:17 12:17 WBC 2.70 L (4.8-10.8) K/uL RBC 4.30 L (4.7-6.1) M/uL Hgb 13.2 L (14.0-18.0) g/dL Hct 37.9 L (42-52) % MCV 88.1 (80-100) fL MCH 30.7 (25-34) pg MCHC 34.8 (32-36) g/dL RDW Std Deviation 44.4 (36.4-46.3) fL RDW Coeff of [place] 13.8 (11.5-14.5) % Plt Count 124 L (130-400) K/uL MPV 9.8 (7.4-10.4) fL Immature Gran % (Auto) 0.0 % Neut % (Auto) 74.7 % Lymph % (Auto) 14.1 % [place] % (Auto) 10.4 % Eos % (Auto) 0.4 % Baso % (Auto) 0.4 % Neut # (Auto) 2.02 (1.4-6.5) K/uL Lymph # (Auto) 0.38 L (1.2-3.4) K/uL [place] # (Auto) 0.28 (0.11-0.59) K/uL Eos # (Auto) 0.01 (0-0.5) K/uL Baso # (Auto) 0.01 (0-0.2) K/uL Immature Gran # (Auto) 0.00 (0.00-0.02) K/uL Sodium 131 L (136-145) mmol/L Potassium 3.9 (3.5-5.1) mmol/L Chloride 97 L (98-107) mmol/L Carbon Dioxide 28 (21-32) mmol/L Anion Gap 7.0 (3-11) BUN 20 H (7-18) mg/dl Creatinine 1.03 (0.6-1.4) mg/dl Est Cr Clr Drug Dosing 68.6 ml/min Est GFR ( Amer) 75.9 Est GFR (Non-Af Amer) 65.5 BUN/Creatinine Ratio 19.2 (10-20) Glucose 100 H (70-99) mg/dl Lactate 0.9 (0.4-2.0) mmol/L Calcium 8.3 L (8.5-10.1) mg/dl Total Bilirubin 0.5 (0.2-1) mg/dl AST 37 (15-37) U/L ALT 32 (12-78) U/L Alkaline Phosphatase 80 (45-117) U/L Troponin I < 0.015 (0-0.045) ng/ml Total Protein 7.2 (6.4-8.2) gm/dl Albumin 3.3 L (3.4-5.0) gm/dl Globulin 3.9 (2.5-4.0) gm/dl Albumin/Globulin Ratio 0.9 (0.9-2) COVID-19 Eval Order SARS-CoV-2, RNA, NAAT (NEGATIVE) 03/22/20 03/22/20 Range/Units 12:20 12:20 WBC (4.8-10.8) K/uL RBC (4.7-6.1) M/uL Hgb (14.0-18.0) g/dL Hct (42-52) % MCV (80-100) fL MCH (25-34) pg MCHC (32-36) g/dL RDW Std Deviation (36.4-46.3) fL RDW Coeff of [place] (11.5-14.5) % Plt Count (130-400) K/uL MPV (7.4-10.4) fL Immature Gran % (Auto) % Neut % (Auto) % Lymph % (Auto) % [place] % (Auto) % Eos % (Auto) % Baso % (Auto) % Neut # (Auto) (1.4-6.5) K/uL Lymph # (Auto) (1.2-3.4) K/uL [place] # (Auto) (0.11-0.59) K/uL Eos # (Auto) (0-0.5) K/uL Baso # (Auto) (0-0.2) K/uL Immature Gran # (Auto) (0.00-0.02) K/uL Sodium (136-145) mmol/L Potassium (3.5-5.1) mmol/L Chloride (98-107) mmol/L Carbon Dioxide (21-32) mmol/L Anion Gap (3-11) BUN (7-18) mg/dl Creatinine (0.6-1.4) mg/dl Est Cr Clr Drug Dosing ml/min Est GFR ( Amer) Est GFR (Non-Af Amer) BUN/Creatinine Ratio (10-20) Glucose (70-99) mg/dl Lactate (0.4-2.0) mmol/L Calcium (8.5-10.1) mg/dl Total Bilirubin (0.2-1) mg/dl AST (15-37) U/L ALT (12-78) U/L Alkaline Phosphatase (45-117) U/L Troponin I (0-0.045) ng/ml Total Protein (6.4-8.2) gm/dl Albumin (3.4-5.0) gm/dl Globulin (2.5-4.0) gm/dl Albumin/Globulin Ratio (0.9-2) COVID-19 Eval Order Covid19 IDNow [facility] SARS-CoV-2, RNA, NAAT POSITIVE A* (NEGATIVE) Imaging Data Radiologist's Impression: SINGLE VIEW CHEST CLINICAL HISTORY: Fever. FINDINGS: 2 AP, portable, upright chest radiographs are compared to study dated 02/22/2019. The examination is degraded by portable technique and patient rotation. The heart is enlarged noting atherosclerotic calcification of the thoracic aorta. The pulmonary vasculature is noncongested. Enlargement of the central pulmonary arteries suggests pulmonary artery hypertension. There are subtle hazy interstitial airspace opacities seen bilaterally. No large pleural effusion or pneumothorax is seen. The skeletal structures are osteopenic. The bony thorax is grossly intact. IMPRESSION: 1. Cardiomegaly without radiographic evidence of congestive failure. 2. There are subtle hazy interstitial airspace opacities seen bilaterally. Correlate clinically for evidence of a mild infectious/inflammatory pneumonitis. ACT 112: Negative or not required by law. Electronically signed by: Solomon Hector M.D. 03/22/2020 1:13 PM Dictated: 03/22/20 1310Transcribed: 03/22/[address] SCAN OF THE BRAIN WITHOUT IV CONTRAST CLINICAL HISTORY: Syncope. Head injury. COMPARISON STUDY: CT of the brain dated 01/13/2019. TECHNIQUE: Unenhanced axial CT scan of the brain is performed from the vertex to the skull base. A dose lowering technique was utilized adhering to the principles of ALARA. CT DOSE: 614.27 mGy.cm FINDINGS: Brain parenchyma: There are age-related involutional changes noting mild subcortical and periventricular microangiopathic change. There is no hemorrhage, mass effect, or evidence of acute territorial ischemia by CT criteria. [place]- white matter differentiation is preserved. No extra-axial fluid collection is seen. Ventricles, sulci, cisterns: Prominent secondary to involutional change. Intracranial vasculature: Intracranial vessels at the skull base are normal as imaged. Calvarium: The skeletal structures are osteopenic. No depressed calvarial fractu re is identified. Sinuses and mastoids: The visualized paranasal sinuses are clear. There is a small right mastoid effusion. The left mastoid air cells are well pneumatized. Orbits: The bony orbits are grossly intact. IMPRESSION: There is no hemorrhage, mass effect, or evidence of acute territor ial ischemia by CT criteria. ACT 112: Negative or not required by law. Electronically signed by: Solomon Hector M.D. 03/22/2020 1:32 PM Dictated: 03/22/20 1329Transcribed: 03/22/20 1329 ECG Data Attestation: I personally reviewed and interpreted this ECG as follows: Indication: + syncope Rate (beats per minute): 98 Rhythm: + atrial fibrillation ECG Intervals/blocks: + Incomplete right bundle branch block ECG [place]: + Normal ECG ST segments: + repolarization abnormalities (Inferior, anterior lateral) ECG Findings: + Q waves (Inferior); no PACs and no PVCs Blood Pressure Blood Pressure Findings: Elevated blood pressure Blood Pressure Disposition: further management by hospitalist Head Trauma GCS Score: 15 MDM Narrative This patient was in and appeared to be in no significant distress. Patient was placed on isolation precautions. IV access was obtained and laboratory work was drawn. An order for cardiac monitoring was placed and the patient was noted to be in a rate controlled atrial fibrillation at 96 bpm. Orthostatics were performed and noted to be positive. Patient was hydrated with normal saline solution. Laboratory work is noted to reveal a low WBC, normal lactate, normal creatinine and a negative troponin. Covid swab was obtained and is positive. Chest x-ray was performed and reveals hazy interstitial airspace opacities bilaterally. Patient was given dexamethasone [address] was performed due to the syncopal episode and head injury, the study is negative for acute intracranial abnormality. I did discuss the findings with the patient's daughter who agrees with the plan for evaluation by the hospitalist. Patient will likely stay overnight for further care, hydration and cardiac monitoring. Patient was made aware of the plan and agrees. UA is ordered but is pending. Impression & Plan Orthostatic syncope, Atrial fibrillation, COVID-19, Diarrhea Discharge Plan Visit Data Chief Complaint: Illness Stated Complaint: syncope ED Provider: Danna Hicks Discharge Problem: Orthostatic syncope, Atrial fibrillation, COVID-19, Diarrhea Patient Disposition: Admitted As Inpatient Discharge Instructions Interventions: ED Discharge Assessment Last Done: 03/22/20 18:41 Discharge Problem: Atrial fibrillation Qualifiers: Atrial fibrillation type: permanent Qualified Code(s): I48.21 - Permanent atrial fibrillation Diarrhea Qualifiers: Diarrhea type: presumed infectious Qualified Code(s): R19.7 - Diarrhea, unspecified
[2020-03-22] MEDS ORDERED: ONDANSETRON INJ 2 MG/ML 2 ML VIAL IV PRN (18:41)
[2020-03-22] MEDS ORDERED: ACETAMINOPHEN 325 MG TAB PO PRN (18:41)
[2020-03-22] MEDS ORDERED: ALUMINUM/MAGNESIUM SUSP 30 ML UDC PO PRN (18:41)
[2020-03-22] MEDS: SIMVASTATIN 20 MG TAB PO SCH (20:42)
[2020-03-22] MEDS: METOPROLOL SUCC 50MG EXT REL TAB PO SCH (20:43)
[2020-03-22 22:37] LABS: Appearance Urine Clear (Clear); Bacteria Urine Automated Negative (Negative); Bilirubin Urine Negative (Negative); Blood Urine Negative (Negative); Cast Urine Automated 0 /lpf (0-5); Color Urine Yellow; Epithelial Cell Urine Auto 0-5 /lpf (0-5); Glucose Urine UA Negative (Negative); Ketones Urine Negative (Negative); Leukocyte Esterase Urine Negative (Negative); Nitrite Urine Negative (Negative); Protein Urine 1+ (Negative); RBC Urine Automated 0-4 /hpf (0-4); Specific Gravity Urine 1.008 (1.000-1.030); Urobilinogen Urine Negative (Negative); WBC Urine Automated 0 /hpf (0-5); pH Urine 6.5 (4.5-7.5)
[2020-03-23 07:47] LABS: Hematocrit (blood only) 41.7 % (42-52); Hemoglobin 14.3 g/dL (14.0-18.0); Immature Granulocytes # (auto) 0.01 K/uL (0.00-0.02); Immature Granulocytes % (auto) 0.5 %; Lymphocytes # (auto) 0.33 K/uL (1.2-3.4); Mean Corpuscular Hemoglobin 30.6 pg (25-34); Mean Corpuscular Hgb Conc 34.3 g/dL (32-36); Mean Corpuscular Volume 89.3 fL (80-100); Mean Platelet Volume 10.1 fL (7.4-10.4); Monocytes # (auto) 0.27 K/uL (0.11-0.59); Monocytes % (auto) 13.1 %; Neutrophils # (auto) 1.45 K/uL (1.4-6.5); Neutrophils % (auto) 70.4 %; Platelet Count 160 K/uL (130-400); RDW Coefficient of Variation 13.9 % (11.5-14.5); RDW Standard Deviation 45.4 fL (36.4-46.3); Red Blood Count 4.67 M/uL (4.7-6.1); White Blood Count 2.06 K/uL (4.8-10.8)
[2020-03-23 08:22] LABS: BUN Creatinine Ratio 16.3 (10-20); Calcium 8.9 mg/dl (8.5-10.1); Creatinine Clr Calc Pharmacy 71.4 ml/min; Est GFR (African American) 79.6; Est GFR (Non-African American) 68.7
[2020-03-23] MEDS: CEROVITE ADV FORMULA TAB PO SCH (08:34)
[2020-03-23] MEDS: lisinopril 40 MG TAB PO SCH (08:34)
[2020-03-23] MEDS: ASPIRIN 81 MG ECTAB PO SCH (09:18)
[2020-03-23] MEDS ORDERED: LOPERAMIDE HCL 2 MG CAP PO PRN (12:38)
--- NOTE | 2020-03-23 12:40 | Hospitalist Progress Note ---
Date of Service March 23, 2020 Assessment & Plan (1) Syncope: Recurrent history of such - usually once a year. Suspected orthostasis/vasovagal in the setting of COVID-19, diarrhea and antihypertensives and having a shower. Monitor on telemetry - no significant issues, also, he has not had syncope while here Will continue on his usual metoprolol succinate but hold HCTZ. UA - no signs of UTI will ask PT/OT to evaluate since he lives alone, want to make sure he is safe (2) COVID-19: Dexamethasone given in ER however given lack of hypoxia will hold further doses of this given no hypoxia still breathing well on room air, no cough, no fever on CXR he has subtle changes mild leukopenia today fits with COVID diagnosis (3) Diarrhea: NSS 1L overnight. Encourage PO intake, he is drinking better will use imodium PRN for diarrhea, certainly this is due to COVID advance diet to low fiber, see how he does (4) Atrial fibrillation: No anticoagulation chronically due to recurrent rectal bleeding and hematuria. Rate control with metoprolol succinate. (5) HTN (hypertension): Continue lisinopril 40mg PO daily, hold HCTZ due to current dehydration. BP elevated today, 150's systolic consider resuming HCTZ tomorrow if still elevated (6) Hyperlipidemia: Continue simvastatin 20mg PO HS (7) DVT prophylaxis: No anticoagulation secondary to recurrent rectal bleeds and hematuria per patient daughter. No SCDs due to risk of falls. Admission and Anticipated Discharge Date Admission Date: March 22, 2020 Subjective patient feeling better today, no pre-syncopal symptoms, ambulated to the toilet by himself tolerating liquid diet, he wants something to eat had 3 loose, small BM this morning, not causing him any distress no issues on the monitor reviewed labs, reviewed chart from admission updated his daughter over the phone, answered her questions discussed that we will get therapy to evaluate him since he lives alone patient hopes to leave tomorrow Review of Systems Review of Systems: All systems reviewed & are unremarkable except as noted in Subjective Physical Exam Constitutional: WD/WN, vitals as above + obese; no acute distress Neck: trachea midline, no thyromegaly Respiratory: normal respiratory effort, lungs clear to auscultation Cardiovascular: RRR, no murmur, no edema Gastrointestinal (Abdomen): normal bowel sounds, soft, nontender, no hepatosplenomegaly Musculoskeletal: no cyanosis or clubbing, extremities motor strength 5/5 Skin: no rashes, warm and dry Neurologic: patellar DTR's 2+ bilat, sensation intact and PERRL, EOMI, accommodation nl, no face palsy, no dysarthria Psychiatric: A+Ox3, euthymic affect Lymphatic: no cervical or axillary lymphadenopathy Results & Data Results & Data ([facility]) Vital Signs (Past 12 Hours) Vital Signs Temp Pulse Pulse Resp BP Pulse Ox 03/23/20 08:00 36.4 C L 63 18 146/87 H 95 03/23/20 04:28 36.5 C 74 18 161/96 H 96 03/23/20 01:31 36.6 C 81 18 155/93 H 96 03/23/20 01:22 72 Laboratory Results Laboratory Results - last 24 hr 03/22/20 03/22/20 03/22/20 12:17 12:17 12:20 WBC RBC Hgb Hct MCV MCH MCHC RDW Std Deviation RDW Coeff of [place] Plt Count MPV Immature Gran % (Auto) Neut % (Auto) Lymph % (Auto) [place] % (Auto) Eos % (Auto) Baso % (Auto) Neut # (Auto) Lymph # (Auto) [place] # (Auto) Eos # (Auto) Baso # (Auto) Immature Gran # (Auto) Sodium 131 L Potassium 3.9 Chloride 97 L Carbon Dioxide 28 Anion Gap 7.0 BUN 20 H Creatinine 1.03 Est Cr Clr Drug Dosing 68.6 Est GFR ( Amer) 75.9 Est GFR (Non-Af Amer) 65.5 BUN/Creatinine Ratio 19.2 Glucose 100 H Lactate 0.9 Calcium 8.3 L Total Bilirubin 0.5 AST 37 ALT 32 Alkaline Phosphatase 80 Troponin I < 0.015 Total Protein 7.2 Albumin 3.3 L Globulin 3.9 Albumin/Globulin Ratio 0.9 Urine Color Urine Appearance Urine pH Ur Specific [place] Urine Protein Urine Glucose (UA) Urine Ketones Urine Blood Urine Nitrite Urine Bilirubin Urine Urobilinogen Ur Leukocyte Esterase Urine WBC (Auto) Urine RBC (Auto) U Hyaline Cast (Auto) U Epithel Cells (Auto) Urine Bacteria (Auto) SARS-CoV-2, RNA, NAAT POSITIVE A* 03/22/20 03/23/20 03/23/20 22:05 06:55 06:55 WBC 2.06 L RBC 4.67 L Hgb 14.3 Hct 41.7 L MCV 89.3 MCH 30.6 MCHC 34.3 RDW Std Deviation 45.4 RDW Coeff of [place] 13.9 Plt Count 160 MPV 10.1 Immature Gran % (Auto) 0.5 Neut % (Auto) 70.4 Lymph % (Auto) 16.0 [place] % (Auto) 13.1 Eos % (Auto) 0.0 Baso % (Auto) 0.0 Neut # (Auto) 1.45 Lymph # (Auto) 0.33 L [place] # (Auto) 0.27 Eos # (Auto) 0.00 Baso # (Auto) 0.00 Immature Gran # (Auto) 0.01 Sodium 134 L Potassium 4.0 Chloride 98 Carbon Dioxide 29 Anion Gap 7.0 BUN 16 Creatinine 0.99 Est Cr Clr Drug Dosing 71.4 Est GFR ( Amer) 79.6 Est GFR (Non-Af Amer) 68.7 BUN/Creatinine Ratio 16.3 Glucose 122 H Lactate Calcium 8.9 Total Bilirubin AST ALT Alkaline Phosphatase Troponin I Total Protein Albumin Globulin Albumin/Globulin Ratio Urine Color Yellow Urine Appearance Clear Urine pH 6.5 Ur Specific [place] 1.008 Urine Protein 1+ H Urine Glucose (UA) Negative Urine Ketones Negative Urine Blood Negative Urine Nitrite Negative Urine Bilirubin Negative Urine Urobilinogen Negative Ur Leukocyte Esterase Negative Urine WBC (Auto) 0 Urine RBC (Auto) 0-4 U Hyaline Cast (Auto) 0 U Epithel Cells (Auto) 0-5 Urine Bacteria (Auto) Negative SARS-CoV-2, RNA, NAAT Medications Administered Current Inpatient Medications Acetaminophen (Acetaminophen 325 Mg Tab) 650 mg PO Q4H PRN PRN Reason: Pain or Fever Stop: 04/21/20 18:40 Al Hydrox/Mg Hydrox/Simethicone (Aluminum/Magnesium Susp 30 Ml Udc) 15 ml PO Q4H PRN PRN Reason: Dyspepsia Stop: 04/21/20 18:40 Aspirin (Aspirin 81 Mg Ectab) 81 mg PO [facility] Stop: 04/22/20 08:59 Last Admin: 03/23/20 09:18 Dose: 81 mg Documented by: Lisinopril (Lisinopril 40 Mg Tab) 40 mg PO [facility] Stop: 04/22/20 08:59 Last Admin: 03/23/20 08:34 Dose: 40 mg Documented by: Loperamide HCl (Loperamide Hcl 2 Mg Cap) 2 mg PO Q6 PRN PRN Reason: Diarrhea Stop: 04/22/20 12:37 Metoprolol Succinate (Metoprolol Succ 50mg Ext Rel Tab) 100 mg PO HS [facility] Stop: 04/21/20 20:59 Last Admin: 03/22/20 20:43 Dose: 100 mg Documented by: Multivitamins/Minerals (Cerovite Adv Formula Tab) 1 tab PO DAILY [facility] Stop: 04/22/20 08:59 Last Admin: 03/23/20 08:34 Dose: 1 tab Documented by: Ondansetron HCl (Ondansetron Inj 2 Mg/Ml 2 Ml Vial) 4 mg IV Q6H PRN PRN Reason: Nausea Stop: 04/21/20 18:40 Simvastatin (Simvastatin 20 Mg Tab) 20 mg PO [facility] Stop: 04/21/20 20:59 Last Admin: 03/22/20 20:42 Dose: 20 mg Documented by: PG Care Time/CCT Total # of Minutes Spent Total Time Spent with Patient: Total time spent is greater than 50% in coordination of care (as documented) at patient's floor/unit and/or counseling patient: Coding Level of Care Code 81588 Subseq Hosp Care Lvl 3 Diagnoses Syncope R55 COVID-19 U07.1 Diarrhea R19.7 Atrial fibrillation I48.91 HTN (hypertension) I10 Hyperlipidemia E78.5 DVT prophylaxis Z29.9
--- NOTE | 2020-03-23 13:06 | Electrocardiogram Report ---
Test Reason : Blood Pressure : / mmHG Vent. Rate : 098 BPM Atrial Rate : 083 BPM P-R Int : 000 ms QRS Dur : 084 ms QT Int : 336 ms P-R-T Axes : 000 -06 008 degrees QTc Int : 428 ms Atrial fibrillation Incomplete right bundle branch block Abnormal ECG When compared with ECG of 14-JAN-2019 06:56, Inverted T waves have replaced nonspecific T wave abnormality in Inferior leads Nonspecific T wave abnormality, worse in Lateral leads Confirmed by Erik Faust ([id number] on 03/23/2020 1:05:45 PM Referred By: REFERRED SELF Confirmed By:Patrice Faust
[2020-03-23] MEDS: METOPROLOL SUCC 50MG EXT REL TAB PO SCH (20:43)
[2020-03-23] MEDS: SIMVASTATIN 20 MG TAB PO SCH (20:43)
[2020-03-24] MEDS: ASPIRIN 81 MG ECTAB PO SCH (08:03)
[2020-03-24] MEDS: lisinopril 40 MG TAB PO SCH (08:04)
[2020-03-24] MEDS: CEROVITE ADV FORMULA TAB PO SCH (08:04)
--- NOTE | 2020-03-24 12:40 | Hospitalist Progress Note ---
Date of Service March 24, 2020 Assessment & Plan (1) Syncope: Recurrent history of such - usually once a year. Suspected orthostasis/vasovagal in the setting of COVID-19, diarrhea and antihypertensives and having a shower. continue to monitor on telemetry - no significant issues, also, he has not had syncope while here Will continue on his usual metoprolol succinate but hold HCTZ, BP stable, HR in 70s UA - no signs of UTI will ask PT/OT to evaluate since he lives alone - he is at baseline try for discharge tomorrow (2) COVID-19: Dexamethasone given in ER will resume since his saturations dropped to 88% on room air today dexamethasone 6mg PO daily still breathing well on room air, no cough, no fever on CXR he has subtle changes mild leukopenia yesterday plan to send home on short course of dexamethasone (3) Diarrhea: NSS 1L overnight after admission Encourage PO intake, he is eating and drinking better will use imodium PRN for diarrhea, certainly this is due to COVID advance diet to low fiber far less diarrhea today, no abdominal pain (4) Atrial fibrillation: No anticoagulation chronically due to recurrent rectal bleeding and hematuria. Rate control with metoprolol succinate. (5) HTN (hypertension): Continue lisinopril 40mg PO daily, hold HCTZ due to current dehydration. BP more stable today consider resuming HCTZ on discharge (6) Hyperlipidemia: Continue simvastatin 20mg PO HS (7) DVT prophylaxis: No anticoagulation secondary to recurrent rectal bleeds and hematuria per patient daughter. No SCDs due to risk of falls. Admission and Anticipated Discharge Date Admission Date: March 22, 2020 Subjective patient doing well, had a brief episode this morning when he felt light headed, his saturations wer 88% on room air he did not lose consciousness he is eating better, no diarrhea today he did well with PT, he is at baseline functional status he was placed on 2L nasal canula for a few hours, titrated to room air, saturations 91-93% will give dexamethasone as he was < 94% on room air with infiltrates on CXR updated his daughter on the phone, discussed possible discharge tomorrow Review of Systems Review of Systems: All systems reviewed & are unremarkable except as noted in Subjective Physical Exam Constitutional: WD/WN, vitals as above + obese; no acute distress Neck: trachea midline, no thyromegaly Respiratory: normal respiratory effort, lungs clear to auscultation Cardiovascular: RRR, no murmur, no edema Gastrointestinal (Abdomen): normal bowel sounds, soft, nontender, no hepatosplenomegaly Musculoskeletal: no cyanosis or clubbing, extremities motor strength 5/5 Skin: no rashes, warm and dry Neurologic: patellar DTR's 2+ bilat, sensation intact and PERRL, EOMI, acc ommodation nl, no face palsy, no dysarthria Psychiatric: A+Ox3, euthymic affect Lymphatic: no cervical or axillary lymphadenopathy Results & Data Results & Data ([facility]) Vital Signs (Past 12 Hours) Vital Signs Temp Pulse Pulse Resp BP Pulse Ox 03/24/20 12:01 36.8 C 65 18 119/75 99 03/24/20 11:30 84 03/24/20 08:08 97 03/24/20 08:00 37 C 92 H 18 148/84 H 92 03/24/20 04:00 36.8 C 68 16 140/82 97 Medications Administered Current Inpatient Medications Acetaminophen (Acetaminophen 325 Mg Tab) 650 mg PO Q4H PRN PRN Reason: Pain or Fever Stop: 04/21/20 18:40 Last Admin: 03/24/20 07:58 Dose: 650 mg Documented by: Al Hydrox/Mg Hydrox/Simethicone (Aluminum/Magnesium Susp 30 Ml Udc) 15 ml PO Q4H PRN PRN Reason: Dyspepsia Stop: 04/21/20 18:40 Aspirin (Aspirin 81 Mg Ectab) 81 mg PO [facility] Stop: 04/22/20 08:59 Last Admin: 03/24/20 08:03 Dose: 81 mg Documented by: Dexamethasone (Dexamethasone 4 Mg Tab) 6 mg PO [facility] Stop: 04/24/20 08:59 Lisinopril (Lisinopril 40 Mg Tab) 40 mg PO [facility] Stop: 04/22/20 08:59 Last Admin: 03/24/20 08:04 Dose: 40 mg Documented by: Loperamide HCl (Loperamide Hcl 2 Mg Cap) 2 mg PO Q6 PRN PRN Reason: Diarrhea Stop: 04/22/20 12:37 Last Admin: 03/24/20 07:58 Dose: 2 mg Documented by: Metoprolol Succinate (Metoprolol Succ 50mg Ext Rel Tab) 100 mg PO [facility] Stop: 04/21/20 20:59 Last Admin: 03/23/20 20:43 Dose: 100 mg Documented by: Multivitamins/Minerals (Cerovite Adv Formula Tab) 1 tab PO DAILY NORBERTO Stop: 04/22/20 08:59 Last Admin: 03/24/20 08:04 Dose: 1 tab Documented by: Ondansetron HCl (Ondansetron Inj 2 Mg/Ml 2 Ml Vial) 4 mg IV Q6H PRN PRN Reason: Nausea Stop: 04/21/20 18:40 Simvastatin (Simvastatin 20 Mg Tab) 20 mg PO HS [facility] Stop: 04/21/20 20:59 Last Admin: 03/23/20 20:43 Dose: 20 mg Documented by: PG Care Time/CCT Total # of Minutes Spent Total Time Spent with Patient: Total time spent is greater than 50% in coordination of care (as documented) at patient's floor/unit and/or counseling patient: Coding Level of Care Code 06617 Subseq Hosp Care Lvl 2 Diagnoses Syncope R55 COVID-19 U07.1 Diarrhea R19.7 Diarrhea type: presumed infectious Atrial fibrillation I48.91 HTN (hypertension) I10 Hyperlipidemia E78.5 DVT prophylaxis Z29.9 (1) Diarrhea Diarrhea type: presumed infectious Qualified Code(s): R19.7 - Diarrhea, unspecified
[2020-03-24] MEDS ORDERED: dexAMETHasone 4 MG TAB PO ONE (13:00)
[2020-03-24] MEDS: SIMVASTATIN 20 MG TAB PO SCH (22:12)
[2020-03-24] MEDS: METOPROLOL SUCC 50MG EXT REL TAB PO SCH (22:12)
[2020-03-25] MEDS: CEROVITE ADV FORMULA TAB PO SCH (08:22)
[2020-03-25] MEDS: lisinopril 40 MG TAB PO SCH (08:22)
[2020-03-25] MEDS: ASPIRIN 81 MG ECTAB PO SCH (08:22)
[2020-03-25] MEDS ORDERED: dexAMETHasone 4 MG TAB PO SCH (09:00)
--- NOTE | 2020-03-25 13:26 | Discharge Summary ---
Date of Service March 25, 2020 Admission HPI Per Admitting Provider Nash Singletary is an 84 year old male who presents to the ER after a fall. He reports this occurred earlier this morning. Unclear if he had symptoms prior to his fall after coming out of the shower however he did note feeling " strange" and he should be more careful. He denies any definitive chest pain, shortness of breath or dizziness. He does note 2 weeks of symptoms concerning for COVID- 19 including chills, productive cough " with a bit of redness" and now having diarrhea for the last 2 days. He has continued to take his medication including hydrochlorothiazide however has not taken any medications today. He completely lost consciousness and woke up with blood around his head. He denies any other injuries and currently denies any headache. Discussed with his daughter (Honey) who is a nurse at the [employer]. Patient deferred medical decisions to his daughter. She reports he is DNR/DNI. Request UA as prior urine infections have caused the patient to have a syncopal event. She reports he has a syncopal event usually once a year when he gets too dehydrated and has general poor oral intake therefore suspects with his diarrhea and poor oral intake likely lead to him passing out after having a shower. In the ER he had a chest x-ray concerning for subtle hazy interstitial airspace opacities bilaterally, reassuringly his CT head was negative for acute intracranial injury. He was given a dose of dexamethasone 6 mg IV as intermittently his O2 sats drop below 94% however currently maintaining O2 sats at rest 95 to 96% on room air. He was referred to medicine for admission and ongoing management for COVID-19, orthostatic syncope, loss of consciousness, closed head trauma. Principal Diagnosis COVID 19 pneumonia Discharge Exam Constitutional WD/WN, vitals as above + obese; no acute distress Neck trachea midline, no thyromegaly Respiratory normal respiratory effort, lungs clear to auscultation Cardiovascular RRR, no murmur, no edema Gastrointestinal (Abdomen) normal bowel sounds, soft, nontender, no hepatosplenomegaly Musculoskeletal no cyanosis or clubbing, extremities motor strength 5/5 Skin no rashes, warm and dry Neurologic patellar DTR's 2+ bilat, sensation intact and PERRL, EOMI, accommodation nl, no face palsy, no dysarthria Psychiatric A+Ox3, euthymic affect Lymphatic no cervical or axillary lymphadenopathy Discharge Data Allergies Allergy/AdvReac Type Severity Reaction Status Date / Time bee venom protein (honey bee) Allergy Unknown UNKNOWN Verified 03/19/20 11:27 Penicillins Allergy Unknown RASH Verified 03/19/20 11:27 Bee sting Allergy Unknown Unknown Uncoded 02/02/20 00:41 Wasp Allergy Unknown Unknown Uncoded 02/02/20 00:41 Consultations 03/22/20 16:16 ED Decision to Admit Stat Ordered Studies 03/22/20 12:37 CT head/brain wo con Stat Hospital Course (1) Syncope: Recurrent history of such - usually once a year. Suspected orthostasis/vasovagal in the setting of COVID-19, diarrhea and antihypertensives and having a shower. continue to monitor on telemetry - no significant issues, also, he has not had syncope while here Will continue on his usual metoprolol succinate but hold HCTZ, BP stable, HR in 70s UA - no signs of UTI will ask PT/OT to evaluate since he lives alone - he is at baseline discharge to home, continue to hold HCTZ to prevent dehydration (2) COVID-19: Dexamethasone given in ER will resume since his saturations dropped to 88% on room air 03/24 dexamethasone 6mg PO daily x 2 days while admitted, continue for 5 more days breathing well on room air, no cough, no fever on CXR he has subtle changes mild leukopenia plan to send home on short course of dexamethasone, 5 more days he knows to return to the hospital if he feels worse (3) Atrial fibrillation: No anticoagulation chronically due to recurrent rectal bleeding and hematuria. Rate controlled with metoprolol succinate. (4) HTN (hypertension): Continue lisinopril 40mg PO daily, hold HCTZ due to current dehydration. BP more stable today hold HCTZ on discharge (5) Hyperlipidemia: Continue simvastatin 20mg PO HS Total Time Total Time Spent Total Time Spent (In Minutes): 33 minutes Total Time Includes: Examination of the Patient, Discharge Planning, Medication Reconciliation and Other (spoke with his daughter Honey) Discharge Plan Discharge Items Patient Disposition: Home - Self-Care Reason For Visit: syncope,COVID-19 Discharge Diagnosis: COVID 19 pneumonia Syncope Condition on Discharge: Good Goals: stay well nourished, well hydrated walk slowly using your care complete course of dexamethasone Activity: Resume your previous activity Non-emergency contact: Primary Care Provider Call non-emergency contact if: you have any medication questions and your symptoms worsen Follow-up/Referrals: Dio Soni III, MD [Primary Care Provider] - 03/31/20 2:30 pm (You have a tele health appt on at 2:30p. the office will call you on the phone for this appt. ) Diet: Regular Addtl Attending Provider Instructions: Medications: - DEXAMETHASONE: 6mg daily for 5 more days, start tomorrow morning - HYDROCHLOROTHIAZIDE: hold this medication for the time being, recommend blood pressure check in 1-2 weeks, if elevated then resume Syncope, COVID 19 with pneumonia, transient hypoxia that quickly resolved most likely reason is combination of COVID 19, dehydration no issues on leather stamper while you were here walked with physical therapy, no issues you never desaturated while walking started on Dexamethasone since your saturations were < 94% will complete 5 more days at home stay well nourished, well hydrated follow up with PCP you should be in isolation 10 days from positive test Pending Studies at Discharge: No Stand-Alone Forms: My [facility], Smoking Cessation Medications and DC Order Prescriptions: New dexamethasone 2 mg tablet 6 mg PO QAM 5 Days Qty: 15 RF: 0 Continued lisinopril 40 mg tablet 40 mg PO QAM RF: 0 simvastatin 20 mg tablet 20 mg PO HS RF: 0 ibuprofen 200 mg tablet 800 mg PO Q8H PRN (Reason: Pain) RF: 0 metoprolol succinate 100 mg tablet extended release 24 hr 100 mg PO HS RF: 0 aspirin [Aspirin Low Dose] 81 mg Tablet,Delayed Release (Dr/Ec) 81 mg PO QAM RF: 0 [id number] Tablet 1 tab PO DAILY RF: 0 Discontinued hydrochlorothiazide 25 mg tablet 25 mg PO QAM RF: 0 Discharge Orders: Discharge Order (Routine); Ordered 03/25/20 Ordered By: Isaac Limon Admission Data Admit Date/Time: 03/22/20 15:13 Attending Provider: Isaac Limon Admit Provider: Duane Celeste Primary Care Provider: Dio Soni III Other Providers: Duane Celeste Other Interventions: Discharge Summary Assessment (RN) Last Done: 03/25/20 13:53 Coding Level of Care Code D/C Day Management >30 mins Diagnoses Syncope R55 COVID-19 U07.1 Atrial fibrillation I48.91 HTN (hypertension) I10 Hyperlipidemia E78.5
== END 2020-03-25 15:02 | disposition home or self-care (01) | DRG 177 ==
LOC: ED 11:21 → SUATTDRO 15:13 → EDINP 15:13 → 2W 18:41

== ENCOUNTER 2022-11-30 09:32 | Inpatient (IN) ==
[2022-11-30 10:00] LABS: Basophils # (auto) 0.02 K/uL (0.00-0.20); Basophils % (auto) 0.3 %; Eosinophils # (auto) 0.04 K/uL (0.00-0.50); Eosinophils % (auto) 0.5 %; Hematocrit (blood only) 35.9 % (42.0-52.0); Hemoglobin 13.4 g/dl (14.0-18.0); Immature Granulocytes # (auto) 0.04 K/uL (0.01-0.20); Immature Granulocytes % (auto) 0.5 %; Lymphocytes # (auto) 0.46 K/uL (1.20-3.40); Lymphocytes % (auto) 5.8 %; Mean Corpuscular Hemoglobin 31.5 pg (25.0-34.0); Mean Corpuscular Hgb Conc 37.3 g/dL (32.0-36.0); Mean Corpuscular Volume 84.3 fL (80.0-100.0); Mean Platelet Volume 9.7 fL (9.4-12.4); Monocytes # (auto) 0.43 K/uL (0.11-0.59); Monocytes % (auto) 5.4 %; Neutrophils # (auto) 6.92 K/uL (1.40-6.50); Neutrophils % (auto) 87.5 %; Platelet Count 249 K/uL (130-400); RDW Coefficient of Variation 12.7 % (11.5-14.5); RDW Standard Deviation 38.9 fL (36.4-46.3); Red Blood Count 4.26 M/uL (4.70-6.10); White Blood Count 7.91 K/ul (4.8-10.8)
--- NOTE | 2022-11-30 10:07 | Emergency Department Note ---
Impression & Plan Hematuria, Hyponatremia, Acute urinary retention ED Provider Note ED Provider Note NAME: ANNIE HUTSON AGE:87 SEX: Male : 1935 ARRIVES VIA: private vehicle INFORMANT: Patient ED PROVIDER(s): Jenn Abdul DO CHIEF COMPLAINT: hematuria HPI: THis is an 87 yo male brought to the ER due to concern for hematuria. Patient with prior hx of prostate cancer and follows with urology. He began noticing symptoms the end of last week however the hematuria seems intermittent. He has also intermittently had clots. He reports some difficulty starting his stream and emptying his bladder. He does take ASA daily, no other anticoagulation. Patient also complains of epigastric pain, no lower abdominal or flank pain. He reports intermittent nausea the last 2 days additionally, but no vomiting. He tigist fevers/chills. No recent trauma or procedures. 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 He was started on Lupron. Daughter stated he has had hematuria previously but not to this extent. Urine specimen at bedside from the patient with gross hematuria, no obvious clots. Patient seen in conjunction with Dr. Beard, FP resident. PAST MEDICAL HISTORY:See Below PAST SURGICAL HISTORY:See Below FAMILY HISTORY:See Below SOCIAL HISTORY:See Below HOME MEDICATIONS:See Below ALLERGIES:See Below VITALS:See Below PHYSICAL EXAMINATION: GENERAL: alert, well appearing, well nourished, no distress, non-toxic EYE EXAM: normal conjunctiva, PERRL and EOM's grossly intact NECK: supple, no nuchal rigidity, no adenopathy, non-tender LUNGS: Clear to auscultation. Normal chest wall mechanics, no w/r/r HEART: no murmurs, S1 normal and S2 normal ABDOMEN: abdomen soft, non-tender, normo-active bowel sounds, no masses, no rebound or guarding. BACK: Back is symmetrical on inspection and there is no deformity, no midline tenderness, no CVA tenderness. SKIN: no rashes, petechiae, orbruising UPPER EXTREMITIES: upper extremities are grossly normal. FROM, nml pulses b/l. LOWER EXTREMITIES: No pitting edema. FROM, nml pulses b/l. NEURO EXAM: Normal sensorium, cranial nerves II-XII grossly intact, normal speech, no facial droop,nogross weakness of arms, no gross weakness of legs. Gross sensation intact. No ataxia. Vital Signs: reviewed and remarkable Differential Diagnosis: UTI, bladder polyp, mass, stone, MONTRELL, nephritic syndrome, trauma, anticoagulation, thromboytopenia, as well as others were considered MEDICAL DECISION MAKING: THis is an 87 yo male who presents with concern for hematuria. Vs stable and patient afebrile. Labs drawn and sent, IV established, EKG and CXR performed and interpreted at bedside, and patient placed on telemetry. Given gross hematuria, patient started on gentle IVF and bladder scan ordered. Labs revealed profound hyponatremia. No prior significant hyponatremia noted in review of EMR. No MONTRELL. Nml potassium. Magnesium added additionally. Patient and daughter updated at bedside and case discussed with [facility] team. Consultation(s): 1125: Dr. Beard, FP resident, spoke with RANJITH Alvarez with [facility]ist team. ER Treatment Provided: See below Diagnostics Interpreted By Me: -ECG: a.fib at 67, nml axis, nml intervals, nonspecific ST/T wave changes. -Cardiac Monitoring: An order was placed for continuous cardiac monitoring. The monitor shows a rate of 82 with a.fib rhythm. -Laboratory studies: As stated above and show below. -Imaging studies: [] Triage Nursing Note Reviewed Prior/Outside Records Reviewed - prior DC summary reviewed Past Med/Surg History Medical History Atrial fibrillation Diarrhea Diverticulosis of colon Longstanding persistent atrial fibrillation Orthostatic syncope Peripheral edema Prostate cancer Syncope Syncope Surgical History History of prostatectomy 1995 Family History Father Myocardial infarction Mother Diabetes Denies family history of Stroke Social History Smoking Status: Never smoker Tobacco Type: Cigarettes Hx Alcohol Use: No Hx Substance Use: No Preferred Language: [place] Communication Ability: Effective Free Lance Model Required: No Beliefs That Will Affect Care: None marital status: / Current Living Situation: Alone current occupational status: retired Feels Safe at Home: Yes Assistive Devices: Cane and Walker Allergies Allergies Allergy/AdvReac Type Severity Reaction Status Date / Time bee venom protein (honey bee) Allergy Unknown UNKNOWN Verified 04/29/22 14:30 Penicillins Allergy Unknown RASH Verified 04/29/22 14:30 amlodipine AdvReac Severe Edema,fluid Verified 04/29/22 14:30 retention Bee sting Allergy Unknown Unknown Uncoded 04/29/22 14:30 Wasp Allergy Unknown Unknown Uncoded 04/29/22 14:30 Home Meds Home Medications Medication Instructions Recorded Confirmed lisinopril 40 mg tablet 40 mg PO QAM 10/20/18 11/30/22 metoprolol succinate 100 mg 100 mg PO HS 05/28/19 11/30/22 tablet,extended release 24 hr aspirin 81 mg tablet,delayed 81 mg PO QAM 02/02/20 11/30/22 release (Catherine Low Dose Aspirin) spironolactone 25 mg tablet 25 mg PO DAILY 12/08/21 11/30/22 furosemide 20 mg tablet 20 mg PO QAM 11/30/22 11/30/22 Results & Data (ED) Vital Signs Vital Signs - 24 hr 11/30/22 09:34 11/30/22 10:29 11/30/22 11:18 Temperature 36.4 C Temperature Source Oral Pulse Rate 49 L Pulse Rate [Apical] 59 L 54 L Pulse Rhythm [Apical] Regular Respiratory Rate 18 18 16 Respiratory Effort / Characteristics Non-Labored Spontaneous Non-Labored Non-Labored Respiratory Depth Normal Normal Normal Respiratory Pattern Regular Blood Pressure 147/83 H Blood Pressure [Right Arm] 148/89 H 133/89 Blood Pressure Mean 104 Blood Pressure Mean [Right Arm] 108 103 Pulse Oximetry 94 97 98 Oxygen Delivery Method Room Air Room Air Room Air Sepsis Recent Fever Within 48 Hours No Sepsis New/Unexplained Change in Mental Status No Sepsis Action Taken by Nursing No Action Required 11/30/22 11:21 11/30/22 11:28 Temperature Temperature Source Pulse Rate 54 L 51 L Pulse Rate [Apical] Pulse Rhythm [Apical] Respiratory Rate Respiratory Effort / Characteristics Respiratory Depth Respiratory Pattern Blood Pressure Blood Pressure [Right Arm] Blood Pressure Mean Blood Pressure Mean [Right Arm] Pulse Oximetry 98 Oxygen Delivery Method Room Air Sepsis Recent Fever Within 48 Hours Sepsis New/Unexplained Change in Mental Status Sepsis Action Taken by Nursing Laboratory Data 11/30/22 09:46 11/30/22 09:46 Lab Results 11/30/22 11/30/22 11/30/22 Range/Units 09:46 09:46 10:26 WBC 7.91 (4.8-10.8) K/ul RBC 4.26 L (4.70-6.10) M/uL Hgb 13.4 L (14.0-18.0) g/dl Hct 35.9 L (42.0-52.0) % MCV 84.3 (80.0-100.0) fL MCH 31.5 (25.0-34.0) pg MCHC 37.3 H (32.0-36.0) g/dL RDW Std Deviation 38.9 (36.4-46.3) fL RDW Coeff of Rico 12.7 (11.5-14.5) % Plt Count 249 (130-400) K/uL MPV 9.7 (9.4-12.4) fL Immature Gran % (Auto) 0.5 % Neut % (Auto) 87.5 % Lymph % (Auto) 5.8 % Smyth % (Auto) 5.4 % Eos % (Auto) 0.5 % Baso % (Auto) 0.3 % Neut # (Auto) 6.92 H (1.40-6.50) K/uL Lymph # (Auto) 0.46 L (1.20-3.40) K/uL Smyth # (Auto) 0.43 (0.11-0.59) K/uL Eos # (Auto) 0.04 (0.00-0.50) K/uL Baso # (Auto) 0.02 (0.00-0.20) K/uL Immature Gran # (Auto) 0.04 (0.01-0.20) K/uL Sodium 119 L* (136-145) mmol/L Potassium 4.4 (3.5-5.1) mmol/L Chloride 85 L (98-107) mmol/L Carbon Dioxide 27 (21-32) mmol/L Anion Gap 7 (3-11) BUN 18 (6-23) mg/dl Creatinine 0.87 (0.6-1.4) mg/dl Est Cr Clr Drug Dosing Not Reportable Est GFR ( Amer) 88.7 ml/min Est GFR (Non-Af Amer) 76.5 ml/min BUN/Creatinine Ratio 20.7 H (10-20) Glucose 127 H (70-99(Fasting)) mg/dl Calcium 10.1 (8.6-10.3) mg/dl Total Bilirubin 0.9 (0.2-1.0) mg/dl AST 19 (13-39) U/L ALT 11 (7-52) U/L Alkaline Phosphatase 84 (34-104) U/L Total Protein 8.0 (6.0-8.3) gm/dl Albumin 4.4 (3.4-5.0) gm/dl Globulin 3.6 (2.5-4.0) gm/dl Albumin/Globulin Ratio 1.2 (0.9-2) Urine Color Red Urine Appearance Cloudy A (Clear) Urine pH 7.0 (4.5-7.5) Ur Specific [place] >= 1.030 (1.000-1.030) Urine Protein 3+ H (Negative) Urine Glucose (UA) Negative (Negative) Urine Ketones Negative (Negative) Urine Blood 3+ H (Negative) Urine Nitrite Negative (Negative) Urine Bilirubin Negative (Negative) Urine Urobilinogen Negative (Negative) Ur Leukocyte Esterase Negative (Negative) Urine RBC >30 H (0-4) /hpf Urine WBC >30 H (0-5) /hpf Ur Epithelial Cells 0-5 (0-5) /lpf Urine Bacteria Negative (Negative) Administered Medications Famotidine 20 mg/ Syringe 5 mls @ 2.5 mls/min IV Q24H NORBERTO Stop: 12/30/22 15:29 Last Admin: 12/01/22 16:23 Dose: 2.5 mls/min Documented By: Admin: 11/30/22 15:48 Dose: 2.5 mls/min Documented By: SKYLAR Polyethylene Glycol (Polyethylene (Miralax) 17 Gm Pack) 17 gm PO DAILY NORBERTO Stop: 12/31/22 15:59 Last Admin: 12/01/22 16:23 Dose: 17 gm Documented By: CELIA Senna/Docusate Sodium (Docusate Sodium/Senna 50/8.6mg Tab) 1 tab PO BID NORBERTO Stop: 12/31/22 15:59 Last Admin: 12/01/22 16:23 Dose: 1 tab Documented By: CELIA Discontinued Medications Sodium Chloride (Nss 1000ml) 1,000 mls @ 100 mls/hr IV .Q10H NORBERTO Stop: 12/02/22 02:14 Last Infusion: 12/01/22 09:02 Dose: 0 mls/hr Documented By: Admin: 12/01/22 01:17 Dose: 100 mls/hr Documented By: Infusion: 12/01/22 00:21 Dose: 100 mls/hr Documented By: Infusion: 11/30/22 19:44 Dose: 100 mls/hr Documented By: Infusion: 11/30/22 19:25 Dose: 0 mls/hr Documented By: Infusion: 11/30/22 18:38 Dose: 10 mls/hr Documented By: Admin: 11/30/22 14:23 Dose: 125 mls/hr Documented By: Infusion: 11/30/22 14:23 Dose: 125 mls/hr Documented By: Admin: 11/30/22 10:26 Dose: 125 mls/hr Documented By: CELIA(2) Sodium Chloride (Hypertonic Saline 3%) 100 mls @ 600 mls/hr IV .Q10M ONE; Protocol Stop: 11/30/22 18:45 Last Infusion: 11/30/22 19:45 Dose: 0 mls/hr Documented By: AILEEN Co-signed By: CANDY Admin: 11/30/22 19:26 Dose: 600 mls/hr Documented By: AILEEN Co-signed By: CANDY Magnesium Sulfate/Dextrose (Magnesium Sulfate / D5w) 1 gm in 100 mls @ 50 mls/hr IV Q2H NORBERTO Stop: 12/01/22 03:29 Last Infusion: 12/01/22 06:19 Dose: 0 mls/hr Documented By: Admin: 12/01/22 04:06 Dose: 50 mls/hr Documented By: Infusion: 12/01/22 01:47 Dose: 50 mls/hr Documented By: Admin: 11/30/22 23:47 Dose: 50 mls/hr Documented By: AILEEN Sodium Chloride (Hypertonic Saline 3%) 100 mls @ 600 mls/hr IV .Q10M ONE; Protocol Stop: 11/30/22 23:35 Last Infusion: 12/01/22 00:10 Dose: 0 mls/hr Documented By: AILEEN Co-signed By: CANDY Admin: 11/30/22 23:47 Dose: 600 mls/hr Documented By: AILEEN Co-signed By: CANDY Sodium Chloride (Hypertonic Saline 3%) 100 mls @ 600 mls/hr IV .Q10M ONE; Protocol Stop: 12/01/22 09:00 Last Infusion: 12/01/22 09:28 Dose: 0 mls/hr Documented By: CELIA Co-signed By: BLANQUITA Admin: 12/01/22 09:17 Dose: 600 mls/hr Documented By: CELIA Co-signed By: EWA Sodium Chloride (Hypertonic Saline 3%) 150 mls @ 450 mls/hr IV .Q20M ONE; Protocol Stop: 12/01/22 15:59 Last Infusion: 12/01/22 16:45 Dose: 0 mls/hr Documented By: CELIA Co-signed By: BLANQUITA Admin: 12/01/22 16:23 Dose: 450 mls/hr Documented By: CELIA Co-signed By: DAO Metoprolol Succinate (Metoprolol Succ 50mg Ext Rel Tab) 100 mg PO HS NORBERTO Stop: 12/30/22 20:59 Last Admin: 11/30/22 19:59 Dose: Not Given Documented By: AILEEN Ondansetron HCl (Ondansetron Inj 2 Mg/Ml 2 Ml Vial) 4 mg IV NOW PRN PRN Reason: Nausea Stop: 12/30/22 11:57 Last Admin: 11/30/22 12:01 Dose: 4 mg Documented By: NRB Discharge Plan Visit Data Chief Complaint: Urinary Symptoms Stated Complaint: PEEING BLOOD, NAUSEA ED Provider: Jenn Abdul Discharge Problem: Hematuria, Hyponatremia, Acute urinary retention Patient Disposition: Admitted As Inpatient Discharge Instructions Interventions: ED Discharge Assessment Last Done: 11/30/22 13:57
--- NOTE | 2022-11-30 10:21 | Emergency Department Note ---
ED Visit Note Patient seen in conjunction with Dr. Abdul. For details, please refer to her note. . Resident Activity Tracking Resident Involvement: Resident Care Provided Care Provided: Adult ED
[2022-11-30] MEDS: SODIUM CHLORIDE 0.9% 1,000 ML IV SCH ×2 (10:26→14:23)
[2022-11-30 10:59] LABS: Alanine Aminotransferase 11 U/L (7-52); Albumin Globulin Ratio 1.2 (0.9-2); Albumin Level 4.4 gm/dl (3.4-5.0); Alkaline Phosphatase 84 U/L (34-104); Anion Gap 7 (3-11); Aspartate Aminotransferase 19 U/L (13-39); BUN Creatinine Ratio 20.7 (10-20); Bilirubin,Total 0.9 mg/dl (0.2-1.0); Blood Urea Nitrogen 18 mg/dl (6-23); Calcium 10.1 mg/dl (8.6-10.3); Carbon Dioxide 27 mmol/L (21-32); Chloride 85 mmol/L (98-107); Est GFR (African American) 88.7 ml/min; Est GFR (Non-African American) 76.5 ml/min; Globulin 3.6 gm/dl (2.5-4.0); Glucose 127 mg/dl (70-99(Fasting)); Potassium 4.4 mmol/L (3.5-5.1); Sodium 119 mmol/L (136-145)
[2022-11-30 11:05] LABS: Appearance Urine Cloudy (Clear); Bilirubin Urine Negative (Negative); Blood Urine 3+ (Negative); Color Urine Red; Glucose Urine UA Negative (Negative); Ketones Urine Negative (Negative); Leukocyte Esterase Urine Negative (Negative); Nitrite Urine Negative (Negative); Protein Urine 3+ (Negative); Specific Gravity Urine >= 1.030 (1.000-1.030); Urobilinogen Urine Negative (Negative)
[2022-11-30 11:14] LABS: Epithelial Cell Urine 0-5 /lpf (0-5); RBC Urine >30 /hpf (0-4); WBC Urine >30 /hpf (0-5)
[2022-11-30 11:15] LABS: Bacteria Urine Negative (Negative)
--- NOTE | 2022-11-30 11:22 | History & Physical Report ---
Date of Service November 30, 2022 Assessment & Plan (1) Hematuria: Plan: ongoing hematuria/worsened since last /Tuesday, passage of clots. Has been holding his aspirin x 2 days. associated n/v and reports feeling like having a clot preventing ability to void adequately. Per daughter, always has a little blood to urine but typically not w/ clots as reported recently, likely 2nd to radiation treatment. Prostate ca s/p radiation in the , recurrence in 2005, recently started on Lupron. (First Lupron injection in August, to get q6. Casodex on home medication list given prior reports concerns for bony disease but had never started this medication per daughter) Admit to med w/ telemetry given Na 119 as well (no excessive water intake, recently started on lasix 20mg PO daily to help with leg swelling) Bladder scan, suspect need for kee catheter placement Urology consulted, discussed with Dr Rosana GRACIA w/o for further evaluation Defer placement of kee for retention/CBI Check coag studies, repeat blood counts w/ next bmp. holding ASA Antiemetics prn IVF/urine studies for hyponatremia as below, hypertonic saline if needed/nephrology Check PSA Monitor CBC in AM/sooner if significant drop on repeat this afternoon (2) Hyponatremia: Plan: Na 119 on admission, prior borderline low levels but Na [facility] on daughters phone Monitored bed/seizure precautions given low value (no evidence on exam though) Check TSH, if normal consider adding AM cortisol Holding further lasix/spironolactone given dehydration on exam IVF @ 125cc/hr BMP q4h to prevent overcorrection Check urine osm, serum osm, urine sodium for further eval Nephrology consulted, appreciate assistance (3) Prostate CA: Plan: Hx of, suspect recurrance w/ aggressive nature given signficiant elevated PSA to 17 in system (per daughter most recent 14 since starting Lupron in August, 1st dose) CTAP in August w/ appearance of metastatic disease to lymph nodes --Bone scan noting Small foci of radiotracer uptake within the upper cervical spine and T8 level which could represent metastatic foci. 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 SCDs ordered. Holding aspirin (has been held x past 2 days) PT/OT consults to be undertaken Plan CTAP for further eval, consultation w/ Urology, check PSA, bladder scan/catheter per urology once evaluated Nephrology consulted for hyponatremia, urine/serum studies, serial BMP History of Present Illness Chief Complaint: urinary symptoms, nausea, vomiting Primary Care Provider: [facility] 87yo male with PMHx significant for prostate ca initially following Dr armenta with recurrence in 2005 and underwent radiation. Subsequently had biochemical recurrence and utilizing intermittent ADT. Most recent PSA 14 per report (system last PSA 17) and has been on Q6h month Lupron therapy and daily bicalutamide 50mg. Most recent CTAP imaging w/ interval development of pathologic periaortic, pericaval and iliac chain lymph nodes suspicious for metastasis. (no evidence of skeletal metastasis at that time, however bone scan notes small foci uptake within upper cervical spine/T8 which could represent metastatic foci) Reports ongoing hematuria since last /Tuesday, discussed with his daughter who is a nurse and reports having recommended him increasing his oral intake. He reports holding his aspirin for the past 2 days as well to help. She notes he always has some amount of bleeding in the urine that they don't typically worry about but with larger clots this morning, concerning to bring for evaluation. Reports having some small amount of urine this morning enough to give a sample but feels like he has a clot blocking passage of urine. Daughter at bedside, notes they had recently started Lasix 20mg PO daily to help with leg swelling, suspect contributing to hyponatremia as well. Denies any excessive fluid intake/gallons but had been pushing fluids. Decreased appetite for past 1-2 days (per daughter x 1 day, is typically a 3-4 meal a day kind of mara). Had some dizziness/weakness this morning, no chest pain/shortness of breath. Denies abdominal pain, does have some nausea. Waiting for zofran (per daughter, 3 people have been getting this -- will contact RN to provide) Issues with moving his bowels at baseline as well, +_BS on exam. UA on admission with 3+ protein, 3+ blood, >30 RBC, >30 WBC. No bacteria. Urine cx pending. Na 119, Chlo 85. BUN/Cr 18/0.87 Discussed with patient that I spoke with w/ Urology and obtaining CTAP w/o IV contrast, repeat PSA pending (per daughter was to obtain this level today), and placement of kee but will defer to Urology for placement of possible three way catheter for CBI. Serial BMP/nephrology consult for hyponatremia. Checking urine OSM/urine Na/Serum Osm. Discussed code status with patient/daughter, confirmed DNR. Allergies Allergy/AdvReac Type Severity Reaction Status Date / Time bee venom protein (honey bee) Allergy Unknown UNKNOWN Verified 04/29/22 14:30 Penicillins Allergy Unknown RASH Verified 04/29/22 14:30 amlodipine AdvReac Severe Edema,fluid Verified 04/29/22 14:30 retention Bee sting Allergy Unknown Unknown Uncoded 04/29/22 14:30 Wasp Allergy Unknown Unknown Uncoded 04/29/22 14:30 Home Medications Medication Instructions Recorded Confirmed Type lisinopril 40 mg tablet 40 mg PO QAM 10/20/18 11/30/22 History metoprolol succinate 100 mg 100 mg PO HS 05/28/19 11/30/22 History tablet,extended release 24 hr aspirin 81 mg tablet,delayed 81 mg PO QAM 02/02/20 11/30/22 History release (Catherine Low Dose Aspirin) spironolactone 25 mg tablet 25 mg PO DAILY 12/08/21 11/30/22 History furosemide 20 mg tablet 20 mg PO QAM 11/30/22 11/30/22 History Past Med/Surg History Medical History Atrial fibrillation Diarrhea Diverticulosis of colon Longstanding persistent atrial fibrillation Orthostatic syncope Peripheral edema Prostate cancer Syncope Syncope Surgical History History of prostatectomy 1996 Family History Father Myocardial infarction Mother Diabetes Denies family history of Stroke Social History Smoking Status: Never smoker Tobacco Type: Cigarettes Hx Alcohol Use: No Hx Substance Use: No Preferred Language: Estonian Communication Ability: Effective Director Staffing Required: No Beliefs That Will Affect Care: None marital status: / Current Living Situation: Alone current occupational status: retired Feels Safe at Home: Yes Assistive Devices: Cane and Walker Review of Systems Review of Systems: All systems reviewed & are unremarkable except as noted in HPI & below Physical Exam Physical Exam: General : WN obese male laying in hospital bed, NAD but fatigued appearing HEENT: head normocephalic, atraumatic, mm DRY, trachea midline Resp: no w/c/rales, no distress, on room air CV: irregularly irregular (rates 50-60s), no significant m/r/g, b/l edema at baseline (reports having taken lasix, wraps in place for compression, not removed) GI: +BS, slight distension, soft, nontender : no kee MSK/Neuro: no slurred speech/facial droop, follows commands, no focal deficits, answering questions appropriately, generalized weakness Psych: alert, oriented x 3, fatigued appearing Results & Data Results & Data Vital Signs (Past 12 Hours) Vital Signs Temp Pulse Pulse Resp BP BP Pulse Ox 11/30/22 10:29 59 L 18 148/89 H 97 11/30/22 09:34 36.4 C 49 L 18 147/83 H 94 O2 Del Method 11/30/22 10:29 Room Air 11/30/22 09:34 Room Air Laboratory Results 11/30/22 11/30/22 11/30/22 Range/Units 10:26 09:46 09:46 WBC 7.91 (4.8-10.8) K/ul RBC 4.26 L (4.70-6.10) M/uL Hgb 13.4 L (14.0-18.0) g/dl Hct 35.9 L (42.0-52.0) % MCV 84.3 (80.0-100.0) fL MCH 31.5 (25.0-34.0) pg MCHC 37.3 H (32.0-36.0) g/dL RDW Std Deviation 38.9 (36.4-46.3) fL RDW Coeff of [place] 12.7 (11.5-14.5) % Plt Count 249 (130-400) K/uL MPV 9.7 (9.4-12.4) fL Immature Gran % (Auto) 0.5 % Neut % (Auto) 87.5 % Lymph % (Auto) 5.8 % [place] % (Auto) 5.4 % Eos % (Auto) 0.5 % Baso % (Auto) 0.3 % Neut # (Auto) 6.92 H (1.40-6.50) K/uL Lymph # (Auto) 0.46 L (1.20-3.40) K/uL [place] # (Auto) 0.43 (0.11-0.59) K/uL Eos # (Auto) 0.04 (0.00-0.50) K/uL Baso # (Auto) 0.02 (0.00-0.20) K/uL Immature Gran # (Auto) 0.04 (0.01-0.20) K/uL Sodium 119 L* (136-145) mmol/L Potassium 4.4 (3.5-5.1) mmol/L Chloride 85 L (98-107) mmol/L Carbon Dioxide 27 (21-32) mmol/L Anion Gap 7 (3-11) BUN 18 (6-23) mg/dl Creatinine 0.87 (0.6-1.4) mg/dl Est Cr Clr Drug Dosing Not Reportable Est GFR ( Amer) 88.7 ml/min Est GFR (Non-Af Amer) 76.5 ml/min BUN/Creatinine Ratio 20.7 H (10-20) Glucose 127 H (70-99(Fasting)) mg/dl Calcium 10.1 (8.6-10.3) mg/dl Total Bilirubin 0.9 (0.2-1.0) mg/dl AST 19 (13-39) U/L ALT 11 (7-52) U/L Alkaline Phosphatase 84 (34-104) U/L Total Protein 8.0 (6.0-8.3) gm/dl Albumin 4.4 (3.4-5.0) gm/dl Globulin 3.6 (2.5-4.0) gm/dl Albumin/Globulin Ratio 1.2 (0.9-2) Urine Color Red Urine Appearance Cloudy A (Clear) Urine pH 7.0 (4.5-7.5) Ur Specific [place] >= 1.030 (1.000-1.030) Urine Protein 3+ H (Negative) Urine Glucose (UA) Negative (Negative) Urine Ketones Negative (Negative) Urine Blood 3+ H (Negative) Urine Nitrite Negative (Negative) Urine Bilirubin Negative (Negative) Urine Urobilinogen Negative (Negative) Ur Leukocyte Esterase Negative (Negative) Urine RBC >30 H (0-4) /hpf Urine WBC >30 H (0-5) /hpf Ur Epithelial Cells 0-5 (0-5) /lpf Urine Bacteria Negative (Negative) Supervising Physician Co-Signing Physician Notes I personally saw and examined the patient. I verified all youssef points and agree with Iesha Pinzon PA-C with the following exceptions and/or additions: 87 year old male presents to the ER with hematuria for 5 days. Stopped aspirin for the last 2 days. Known metastatic prostate cancer although not currently on any therapy for this. Recently prescribed furosemide for leg swelling. Unable to take anticoagulation due to recurrence in hematuria. O/E A&Ox3, HS irregular rhythm, reduced rate, no murmurs, Chest CTAB, Abdo soft, non tender A/P Urinary retention with hematuria - known metastatic prostate cancer. kee catheter to be placed by urology. Consult urology and oncology. Discontinued aspirin. Hyponatremia - urine osm 269, urine Na 41. Suspect combination of primary polydipsia and furosemide use. Discontinue furosemide. Fluid restrict 1L. Monitor Na q4h. Will utilize hypertonic saline boluses 100ml as needed to aim 6- 8 increase over 24 hours. Suspect this is causing his nausea. Continue NSS @ 100ml/hr Atrial fibrillation - not on anticoagulation halfway due to recurrent hematuria. 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
[2022-11-30] MEDS ORDERED: ONDANSETRON ORAL SOLN 0.8 MG/1 ML PO PRN (11:30)
[2022-11-30] MEDS ORDERED: ONDANSETRON INJ 2 MG/ML 2 ML VIAL IV PRN ×2 (11:58→14:22)
--- NOTE | 2022-11-30 13:17 | CT Scan Report ---
CT SCAN OF THE ABDOMEN AND PELVIS WITHOUT IV CONTRAST CLINICAL HISTORY: Hematuria. Prostate cancer. Generalized weakness. COMPARISON STUDY: Abdominal CT dated 07/01/2022. TECHNIQUE: CT scan of the abdomen and pelvis is performed from the lung bases to the proximal femora. Images are reviewed in the axial, sagittal, and coronal planes. IV contrast was not administered for this examination. A dose lowering technique was utilized adhering to the principles of ALARA. Note t hat the examination was performed in suboptimal fashion without oral and IV contrast. CT DOSE: 1549.61 mGy.cm FINDINGS: Lung bases: The heart is enlarged and without pericardial effusion. There are scattered calcified gra nulomas. A dependent scarring/atelectasis is seen at both lung bases. No airspace consolidation or pl eural effusion is identified. There is a small hiatal hernia. Liver: The unenhanced liver is normal in size, contour, and attenuation. There is no intrahepatic hasmukh iary ductal dilatation. Scattered hepatic cysts measuring up to 2.4 cm. Gallbladder: Question cholelithiasis. There is no CT evidence of cholecystitis. Spleen: Normal in size and attenuation. Pancreas: The unenhanced pancreas is atrophic and grossly unremarkable. Adrenal glands: Unremarkable. Kidneys: The unenhanced kidneys demonstrate cortical atrophy. There is mild left hydroureteronephrosi s, likely related to the agree of bladder distention. No obstructing stone or lesion is identified. N o hydronephrosis is seen on the right. No renal calculi are identified. Left renal cysts measure up t o 5.8 cm. Abdominal vasculature: The abdominal aorta is normal in course and caliber noting moderate to advance d atherosclerotic calcification. Bowel: There is no bowel obstruction. The appendix is well-visualized and normal. Peritoneum: There is no intraperitoneal free air or abdominal ascites. Lymphadenopathy: There is retroperitoneal lymphadenopathy. An aortocaval node on image #188 measures 3.0 x 2.1 cm. A left periaortic node on image #182 measures 1.5 x 1.1 cm. There are also mildly enlar ged right iliac chain nodes. A node on image #20 and 61 measures 1.6 x 1.4 cm. Pelvic viscera: The bladder is distended, and the wall appears thickened/trabeculated suggesting personal health coach chencho outlet obstruction. Layering hyperdense material within the bladder lumen seen on image #327 is n ew from 06/04/2022 and likely represents blood clots. The prostate gland is surgically absent. Surgical clips are seen throughout the pelvis. Skeletal structures: The skeletal structures are heterogeneously osteopenic. No lytic or blastic lesi ons are clearly identified. IMPRESSION: 1. Status post prostatectomy. 2. The bladder is distended and contains layering hyperdense debris. This is new from 06/04/2022 and ty pical for blood clots. Correlate with clinical findings and urinalysis. 3. There is mild left hydroureteronephrosis, likely related to bladder distention. 4. Pathologically enlarged retroperitoneal and right iliac chain lymphadenopathy is similar to previo us and highly suspicious for metastatic disease. 5. No lytic or blastic lesions are clearly seen. 6. Cardiomegaly. 7. Additional findings as above. ACT 112: Negative or not required by law. Electronically signed by: Solomon Hector M.D. 11/30/2022 1:16 PM
--- NOTE | 2022-11-30 13:29 | Urology Consultation ---
Date of Consultation November 30, 2022 Assessment & Plan (1) Urinary retention: (2) Hematuria: 87-year-old male with history of prostate cancer admitted for hematuria and hyponatremia. Patient afebrile and hemodynamically stable Labs reviewedcreatinine 0.87, WBC 7.91, hemoglobin 13.4, Na 119 Continue to trend labs Urine culture pending CT imaging showed a distended bladder with some layering hyperdense debris; mild left hydroureteronephrosis likely related to bladder distention Lymphadenopathy similar to prior and concerning for metastatic disease Bladder scan was 641 mL, pt unable to void Nursing attempted catheter placement with 22F and 16F I placed a 14 F catheter without difficulty Fried patent and draining pink to light red urine with a few small passable clots noted Will need to monitor catheter - okay to gently hand irrigate catheter prn clots, obstruction or suprapubic discomfort If catheter becomes obstructed, then will need to upsize catheter Received Lupron in August PSA has risen to 27.755 Recommend consulting oncology Continue supportive care and management per hospital medicine will follow History of Present Illness Reason for Consultation: hematuria w/ clot, difficulty urinating, prostate ca Requesting Physician: Dr. Celeste Attending Physician: Dr. Celeste History of Present Illness This is an 87-year-old male with past medical history of prostate cancer status post prostatectomy and radiation who presented to the emergency department on 11/30/2022 for evaluation of hematuria with clots. Patient reported ongoing hematuria since 5 to 6 days ago and then developed larger clots and difficulty voiding prompting ED presentation. He has been off aspirin x 2 days. On arrival, he was afebrile and hemodynamically stable. Lab work reviewed and creatinine 0.67, sodium was 119. CBC showed hemoglobin 13.4, no leukocytosis. Urinalysis showed 3+ protein, 3+ blood, >30 RBC, >30 WBC, negative for bacteria or nitrates. CT A/P without contrast reviewed and showed status post prostatectomy, bladder distended and containing small amount of layering hyperdense debris. Mild left hydroureteronephrosis, likely related to bladder distention. Pathologically enlarged retroperitoneal and right iliac chain lymphadenopathy similar to previ ous and highly suspicious for metastatic disease. No lytic or blastic lesions are clearly seen. Urology consulted for evaluation of hematuria. Patient is known to our service, follows with Dr. Peterson for hx of prostate ca. Previously followed with Dr. Sage Christine. Hx of radical prostatectomy. He had recurrence in 2016 status post radiation. He was found to have recurrence and has been utilizing intermittent androgen deprivation therapy. PSA in June 2022 was 17.792. Lupron injection given in August 2022. [facility] Patient seen and examined in the emergency department. He is awake, alert and resting in litter. He denies abdominal, suprapubic or flank discomfort. Reports hematuria and clots for the past few days with larger clots this morning. He reports difficulty urinating intermittently. No dysuria. Denies nausea, vomiting, fever or chills. No additional concerns at this time. Bladder scan 641 mL. Patient was unable to void. Allergies Allergy/AdvReac Type Severity Reaction Status Date / Time bee venom protein (honey bee) Allergy Unknown UNKNOWN Verified 04/29/22 14:30 Penicillins Allergy Unknown RASH Verified 04/29/22 14:30 amlodipine AdvReac Severe Edema,fluid Verified 04/29/22 14:30 retention Bee sting Allergy Unknown Unknown Uncoded 04/29/22 14:30 Wasp Allergy Unknown Unknown Uncoded 04/29/22 14:30 Home Medications Medication Instructions Recorded Confirmed Type lisinopril 40 mg tablet 40 mg PO QAM 10/20/18 11/30/22 History metoprolol succinate 100 mg 100 mg PO HS 05/28/19 11/30/22 History tablet,extended release 24 hr aspirin 81 mg tablet,delayed 81 mg PO QAM 02/02/20 11/30/22 History release (Catherine Low Dose Aspirin) spironolactone 25 mg tablet 25 mg PO DAILY 12/08/21 11/30/22 History furosemide 20 mg tablet 20 mg PO QAM 11/30/22 11/30/22 History Patient History Medical History Atrial fibrillation Diarrhea Diverticulosis of colon Longstanding persistent atrial fibrillation Orthostatic syncope Peripheral edema Prostate cancer Syncope Syncope Surgical History History of prostatectomy 1995 Family History Father Myocardial infarction Mother Diabetes Denies family history of Stroke Social History Smoking Status: Never smoker Tobacco Type: Cigarettes Hx Alcohol Use: No Hx Substance Use: No Preferred Language: Georgian Communication Ability: Effective Power And Recovery Superintendent Required: No Beliefs That Will Affect Care: None marital status: / Current Living Situation: Alone current occupational status: retired Feels Safe at Home: Yes Assistive Devices: Cane and Walker Review of Systems Review of Systems: All systems reviewed & are unremarkable except as noted in HPI & below Physical Exam Physical Exam: General: well-appearing, no acute distress HEENT: Normocephalic Pulmonary: Nonlabored respirations Abdomen: Soft, nondistended, nontender Extremities: Moves all 4 spontaneously Neuro: No gross deficits Psych: alert and oriented, normal mood Skin: Warm, dry, no rashes noted : Bladder scan 641 mL, unable to void. Nursing attempted 22F and 16F catheter without success. Patient prepped and draped in sterile fashion, 14 Tamazight catheter inserted without difficulty. Patient tolerated well and no immediate complications noted. Fried catheter draining dark pink to light red rm urine, a few small clots noted which easily passed through tubing. Results & Data Vital Signs (Past 12 Hours) Vital Signs Temp Pulse Pulse Resp BP BP Pulse Ox 11/30/22 11:28 51 L 11/30/22 11:21 54 L 98 11/30/22 11:18 54 L 16 133/89 98 11/30/22 10:29 59 L 18 148/89 H 97 11/30/22 09:34 36.4 C 49 L 18 147/83 H 94 O2 Del Method 11/30/22 11:28 11/30/22 11:21 Room Air 11/30/22 11:18 Room Air 11/30/22 10:29 Room Air 11/30/22 09:34 Room Air PG Care Time/CCT Total # of Minutes Spent Total Time Spent with Patient: Total time spent is greater than 50% in coordination of care (as documented) at patient's floor/unit and/or counseling patient: Coding Level of Care Code 98560 INT INP/OBS CARE 2/55MIN Diagnoses Urinary retention R33.9 Hematuria R31.9 Time Spent (min) 60
[2022-11-30 14:49] LABS: Anion Gap 6 (3-11); BUN Creatinine Ratio 22.8 (10-20); Blood Urea Nitrogen 18 mg/dl (6-23); Calcium 9.3 mg/dl (8.6-10.3); Carbon Dioxide 26 mmol/L (21-32); Chloride 88 mmol/L (98-107); Est GFR (African American) 92.3 ml/min; Est GFR (Non-African American) 79.6 ml/min; Glucose 118 mg/dl (70-99(Fasting)); Potassium 4.4 mmol/L (3.5-5.1); Sodium 120 mmol/L (136-145)
[2022-11-30 15:07] LABS: INR 1.1 (0.9-1.1); Partial Thromboplastin Ratio 1.1; Partial Thromboplastin Time 29.7 Seconds (21.0-31.0); Prothrombin Time 11.6 Seconds (9.0-12.0)
[2022-11-30] MEDS: FAMOTIDINE 20 MG in SYRINGE 3 ML IV SCH (15:48)
--- NOTE | 2022-11-30 16:52 | Nephrology Consultation ---
Date of Consultation November 30, 2022 Assessment & Plan (1) Hyponatremia: Hypovolemic to euvolemic. Chronic. Appears asymptomatic. Sodium appears to be improving with isotonic fluids. Tolerating IVF well. Diuretics held. Maintain free water restriction, 1 L/d. Document strict I/O's. Monitor metabolic profile closely and if sodium plateauing or dropping transition to hypertonic fluids. (2) Urinary retention: s/p Fried placement by urology. Non-oliguric. Creatinine normal. (3) Hematuria: (4) Malignant neoplasm of prostate metastatic to bone: (5) Longstanding persistent atrial fibrillation: History of Present Illness Reason for Consultation: hyponatremia, Na 119 Requesting Physician: Iesha Pinzon PA-C Attending Physician: Duane Celeste MD History of Present Illness Mr. Nash Singletary is an 87 year-old male with a complex history of prostate cancer who presented to [facility] yesterday with gross hematuria. Nash is maintained on CT demonstrating distended bladder with debris and associated mild left hydronephrosis. Fried placed by urology is draining pale red urine. Nash was resting comfortably in bed at the time of my assessment this afternoon. Serum creatinine remains <1 mg/dL. Serum sodium previously 135 mmol/L was 119 mmol/L on admission. Nash was found to be volume depleted and IV saline infusion started. BP acceptable. He is tolerating fluids well. Nash denies fluid retention or edema. Overall, he feels well. Appetite has been poor and he notes that he has been losing weight. No diarrhea. Denies nausea. No headaches. Medical history notable for prostate cancer s/p prostatectomy with XRT with rising PSA and CT demonstrating adenopathy concerning for metastatic disease. Nash has been maintained on Lupron. He has a history of venous insufficiency and venous stasis ulcers. He has permanent atrial fibrillation, hypertension, and neuropathy. Home medications include furosemide, spironolactone, and lisinopril. Urine osmolality 270. Urine Na 41. Sodium 120 mmol/L following IV saline. Saline continues to infuse at 125 ml/hr. Labs are ordered q 4 hr. Allergies Allergy/AdvReac Type Severity Reaction Status Date / Time bee venom protein (honey bee) Allergy Unknown UNKNOWN Verified 04/29/22 14:30 Penicillins Allergy Unknown RASH Verified 04/29/22 14:30 amlodipine AdvReac Severe Edema,fluid Verified 04/29/22 14:30 retention Bee sting Allergy Unknown Unknown Uncoded 04/29/22 14:30 Wasp Allergy Unknown Unknown Uncoded 04/29/22 14:30 Home Medications Medication Instructions Recorded Confirmed Type lisinopril 40 mg tablet 40 mg PO QAM 10/20/18 11/30/22 History metoprolol succinate 100 mg 100 mg PO HS 05/28/19 11/30/22 History tablet,extended release 24 hr aspirin 81 mg tablet,delayed 81 mg PO QAM 02/02/20 11/30/22 History release (Catherine Low Dose Aspirin) spironolactone 25 mg tablet 25 mg PO DAILY 12/08/21 11/30/22 History furosemide 20 mg tablet 20 mg PO QAM 11/30/22 11/30/22 History Patient History Medical History Atrial fibrillation Diarrhea Diverticulosis of colon Longstanding persistent atrial fibrillation Orthostatic syncope Peripheral edema Prostate cancer Syncope Syncope Surgical History History of prostatectomy 1995 Family History Father Myocardial infarction Mother Diabetes Denies family history of Stroke Social History Smoking Status: Never smoker Tobacco Type: Cigarettes Hx Alcohol Use: No Hx Substance Use: No Preferred Language: Omani Communication Ability: Effective 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: No Beliefs That Will Affect Care: None marital status: / Current Living Situation: Alone current occupational status: retired Feels Safe at Home: Yes Assistive Devices: Cane and Walker Review of Systems Review of Systems: All systems reviewed & are unremarkable except as noted in HPI & below Physical Exam Constitutional: well developed; no acute distress Eyes: + anicteric sclerae; no corneal abnormality ENMT: Mouth: no oral mucosal abnormality and oral mucous membranes not dry Neck: normal visual inspection and trachea midline Respiratory: normal respiratory effort Auscultation: lungs clear to auscultation bilaterally Cardiovascular: Rate/Rhythm: + irregularly irregular Heart Sounds: normal S1 and normal S2 Extremities: + edema (legs wrapped) Musculoskeletal: Extremities: no cyanosis and no clubbing Skin: normal turgor; no lesions Neurologic: Motor/Sensory: no tremor and no asterixis Psychiatric: Orientation: alert and oriented x 3 Results & Data Vital Signs (Past 12 Hours) Vital Signs Temp Pulse Pulse Resp BP BP Pulse Ox 11/30/22 16:12 66 11/30/22 15:15 36.6 C 77 20 160/83 H 94 11/30/22 14:52 11/30/22 14:22 36.7 C 72 18 125/80 95 11/30/22 14:22 11/30/22 13:42 62 16 138/78 96 11/30/22 11:28 51 L 11/30/22 11:21 54 L 98 11/30/22 11:18 54 L 16 133/89 98 11/30/22 10:29 59 L 18 148/89 H 97 11/30/22 09:34 36.4 C 49 L 18 147/83 H 94 Pulse Ox O2 Del Method O2 Del Method 11/30/22 16:12 11/30/22 15:15 Room Air 11/30/22 14:52 Room Air 11/30/22 14:22 Room Air 11/30/22 14:22 95 Room Air 11/30/22 13:42 Room Air 11/30/22 11:28 11/30/22 11:21 Room Air 11/30/22 11:18 Room Air 11/30/22 10:29 Room Air 11/30/22 09:34 Room Air Laboratory Results Laboratory Results - last 24 hr 11/30/22 11/30/22 11/30/22 09:46 09:46 10:26 WBC 7.91 RBC 4.26 L Hgb 13.4 L Hct 35.9 L MCV 84.3 MCH 31.5 MCHC 37.3 H RDW Std Deviation 38.9 RDW Coeff of [place] 12.7 Plt Count 249 MPV 9.7 Immature Gran % (Auto) 0.5 Neut % (Auto) 87.5 Lymph % (Auto) 5.8 Edgar % (Auto) 5.4 Eos % (Auto) 0.5 Baso % (Auto) 0.3 Neut # (Auto) 6.92 H Lymph # (Auto) 0.46 L Edgar # (Auto) 0.43 Eos # (Auto) 0.04 Baso # (Auto) 0.02 Immature Gran # (Auto) 0.04 PT INR APTT PTT Ratio Sodium 119 L* Potassium 4.4 Chloride 85 L Carbon Dioxide 27 Anion Gap 7 BUN 18 Creatinine 0.87 Est Cr Clr Drug Dosing Not Reportable Est GFR ( Amer) 88.7 Est GFR (Non-Af Amer) 76.5 BUN/Creatinine Ratio 20.7 H Glucose 127 H Osmolality Calcium 10.1 Total Bilirubin 0.9 AST 19 ALT 11 Alkaline Phosphatase 84 Total Protein 8.0 Albumin 4.4 Globulin 3.6 Albumin/Globulin Ratio 1.2 Prostate Specific Ag TSH Urine Color Red Urine Appearance Cloudy A Urine pH 7.0 Ur Specific [place] >= 1.030 Urine Protein 3+ H Urine Glucose (UA) Negative Urine Ketones Negative Urine Blood 3+ H Urine Nitrite Negative Urine Bilirubin Negative Urine Urobilinogen Negative Ur Leukocyte Esterase Negative Urine RBC >30 H Urine WBC >30 H Ur Epithelial Cells 0-5 Urine Bacteria Negative Urine Osmolality Ur Random Sodium 11/30/22 11/30/22 11/30/22 13:19 13:19 13:45 WBC RBC Hgb Hct MCV MCH MCHC RDW Std Deviation RDW Coeff of [place] Plt Count MPV Immature Gran % (Auto) Neut % (Auto) Lymph % (Auto) Edgar % (Auto) Eos % (Auto) Baso % (Auto) Neut # (Auto) Lymph # (Auto) Edgar # (Auto) Eos # (Auto) Baso # (Auto) Immature Gran # (Auto) PT INR APTT PTT Ratio Sodium Potassium Chloride Carbon Dioxide Anion Gap BUN Creatinine Est Cr Clr Drug Dosing Est GFR ( Amer) Est GFR (Non-Af Amer) BUN/Creatinine Ratio Glucose Osmolality Calcium Total Bilirubin AST ALT Alkaline Phosphatase Total Protein Albumin Globulin Albumin/Globulin Ratio Prostate Specific Ag 27.755 H TSH Urine Color Urine Appearance Urine pH Ur Specific [place] Urine Protein Urine Glucose (UA) Urine Ketones Urine Blood Urine Nitrite Urine Bilirubin Urine Urobilinogen Ur Leukocyte Esterase Urine RBC Urine WBC Ur Epithelial Cells Urine Bacteria Urine Osmolality 269 L Ur Random Sodium 41 11/30/22 11/30/22 11/30/22 13:45 13:45 13:45 WBC RBC Hgb Hct MCV MCH MCHC RDW Std Deviation RDW Coeff of [place] Plt Count MPV Immature Gran % (Auto) Neut % (Auto) Lymph % (Auto) Edgar % (Auto) Eos % (Auto) Baso % (Auto) Neut # (Auto) Lymph # (Auto) Edgar # (Auto) Eos # (Auto) Baso # (Auto) Immature Gran # (Auto) PT INR APTT PTT Ratio Sodium 120 L Potassium 4.4 Chloride 88 L Carbon Dioxide 26 Anion Gap 6 BUN 18 Creatinine 0.79 Est Cr Clr Drug Dosing Not Reportable Est GFR ( Amer) 92.3 Est GFR (Non-Af Amer) 79.6 BUN/Creatinine Ratio 22.8 H Glucose 118 H Osmolality 258 L Calcium 9.3 Total Bilirubin AST ALT Alkaline Phosphatase Total Protein Albumin Globulin Albumin/Globulin Ratio Prostate Specific Ag TSH 0.899 Urine Color Urine Appearance Urine pH Ur Specific [place] Urine Protein Urine Glucose (UA) Urine Ketones Urine Blood Urine Nitrite Urine Bilirubin Urine Urobilinogen Ur Leukocyte Esterase Urine RBC Urine WBC Ur Epithelial Cells Urine Bacteria Urine Osmolality Ur Random Sodium 11/30/22 13:45 WBC RBC Hgb Hct MCV MCH MCHC RDW Std Deviation RDW Coeff of [place] Plt Count MPV Immature Gran % (Auto) Neut % (Auto) Lymph % (Auto) Edgar % (Auto) Eos % (Auto) Baso % (Auto) Neut # (Auto) Lymph # (Auto) Edgar # (Auto) Eos # (Auto) Baso # (Auto) Immature Gran # (Auto) PT 11.6 INR 1.1 APTT 29.7 PTT Ratio 1.1 Sodium Potassium Chloride Carbon Dioxide Anion Gap BUN Creatinine Est Cr Clr Drug Dosing Est GFR ( Amer) Est GFR (Non-Af Amer) BUN/Creatinine Ratio Glucose Osmolality Calcium Total Bilirubin AST ALT Alkaline Phosphatase Total Protein Albumin Globulin Albumin/Globulin Ratio Prostate Specific Ag TSH Urine Color Urine Appearance Urine pH Ur Specific [place] Urine Protein Urine Glucose (UA) Urine Ketones Urine Blood Urine Nitrite Urine Bilirubin Urine Urobilinogen Ur Leukocyte Esterase Urine RBC Urine WBC Ur Epithelial Cells Urine Bacteria Urine Osmolality Ur Random Sodium Diagnostic Findings CT SCAN OF THE ABDOMEN AND PELVIS WITHOUT IV CONTRAST FINDINGS: Lung bases: The heart is enlarged and without pericardial effusion. There are scattered calcified granulomas. A dependent scarring/atelectasis is seen at both lung bases. No airspace consolidation or pleural effusion is identified. There is a small hiatal hernia. Liver: The unenhanced liver is normal in size, contour, and attenuation. There is no intrahepatic biliary ductal dilatation. Scattered hepatic cysts measuring up to 2.4 cm. Gallbladder: Question cholelithiasis. There is no CT evidence of cholecystitis. Spleen: Normal in size and attenuation. Pancreas: The unenhanced pancreas is atrophic and grossly unremarkable. Adrenal glands: Unremarkable. Kidneys: The unenhanced kidneys demonstrate cortical atrophy. There is mild left hydroureteronephrosis, likely related to the agree of bladder distention. No obstructing stone or lesion is identified. No hydronephrosis is seen on the right. No renal calculi are identified. Left renal cysts measure up to 5.8 cm. Abdominal vasculature: The abdominal aorta is normal in course and caliber noting moderate to advanced atherosclerotic calcification. Bowel: There is no bowel obstruction. The appendix is well-visualized and normal. Peritoneum: There is no intraperitoneal free air or abdominal ascites. Lymphadenopathy: There is retroperitoneal lymphadenopathy. An aortocaval node on image #188 measures 3.0 x 2.1 cm. A left periaortic node on image #182 measures 1.5 x 1.1 cm. There are also mildly enlarged right iliac chain nodes. A node on image #20 and 61 measures 1.6 x 1.4 cm. Pelvic viscera: The bladder is distended, and the wall appears thickened/trabeculated suggesting chronic outlet obstruction. Layering hyperdense material within the bladder lumen seen on image #327 is new from 06/04/2022 and likely represents blood clots. The prostate gland is surgically absent. Surgical clips are seen throughout the pelvis. Skeletal structures: The skeletal structures are heterogeneously osteopenic. No lytic or blastic lesions are clearly identified. IMPRESSION: 1. Status post prostatectomy. 2. The bladder is distended and contains layering hyperdense debris. This is new from 06/04/2022 and typical for blood clots. Correlate with clinical findings and urinalysis. 3. There is mild left hydroureteronephrosis, likely related to bladder distention. 4. Pathologically enlarged retroperitoneal and right iliac chain lymphadenopathy is similar to previous and highly suspicious for metastatic disease. 5. No lytic or blastic lesions are clearly seen. 6. Cardiomegaly. PG Care Time/CCT Total # of Minutes Spent Total Time Spent with Patient: Total time spent is greater than 50% in coordination of care (as documented) at patient's floor/unit and/or counseling patient: Coding Level of Care Code 72811 IN/OBS CONSULT LVL 4,60M Diagnoses Hyponatremia E87.1 Urinary retention R33.9 Hematuria R31.9 Malignant neoplasm of prostate metastatic to bone C61; C79.51 Longstanding persistent atrial fibrillation I48.11
[2022-11-30 17:52] LABS: Hematocrit (blood only) 32.9 % (42.0-52.0); Hemoglobin 11.9 g/dl (14.0-18.0); Mean Corpuscular Hemoglobin 31.2 pg (25.0-34.0); Mean Corpuscular Hgb Conc 36.2 g/dL (32.0-36.0); Mean Corpuscular Volume 86.4 fL (80.0-100.0); Platelet Count 226 K/uL (130-400); RDW Coefficient of Variation 12.7 % (11.5-14.5); RDW Standard Deviation 39.8 fL (36.4-46.3); Red Blood Count 3.81 M/uL (4.70-6.10)
[2022-11-30 17:54] LABS: BUN Creatinine Ratio 19.8 (10-20); Calcium 9.4 mg/dl (8.6-10.3); Creatinine Clr Calc Pharmacy 82.3 ml/min; Est GFR (African American) 91.3 ml/min; Est GFR (Non-African American) 78.8 ml/min; Potassium 4.2 mmol/L (3.5-5.1)
[2022-11-30] MEDS ORDERED: STAT IV STA ×2 (18:36→23:26)
[2022-11-30] MEDS ORDERED: SODIUM CHLORIDE 3 % 100 ML IV ONE ×2 (18:36→23:26)
[2022-11-30] MEDS ORDERED: METOPROLOL SUCC 50MG EXT REL TAB PO SCH (21:00)
[2022-11-30 22:19] LABS: BUN Creatinine Ratio 18.5 (10-20); Calcium 8.7 mg/dl (8.6-10.3); Creatinine Clr Calc Pharmacy 72.5 ml/min; Est GFR (African American) 85.2 ml/min; Est GFR (Non-African American) 73.5 ml/min; Magnesium 1.6 mg/dl (1.7-2.4); Potassium 4.1 mmol/L (3.5-5.1)
[2022-11-30] MEDS: MAGNESIUM SULFATE / D5W 1 GM/100 ML BAG IV SCH (23:47)
[2022-12-01] MEDS: SODIUM CHLORIDE 0.9% 1,000 ML IV SCH (01:17)
[2022-12-01] MEDS: MAGNESIUM SULFATE / D5W 1 GM/100 ML BAG IV SCH (04:06)
--- NOTE | 2022-12-01 06:57 | Consultation ---
Date of Consultation December 01, 2022 Assessment & Plan (1) Hematuria: Gross hematuria probably represents a combination of bladder mucosal disruption along with aspirin inhibition of platelet function. 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 Local recurrence of his prostate cancer may be causing structural changes in the bladder, would defer to urology as to what extent it may be worthwhile to perform cystoscopy and assess for any supervening bladder malignancy. Without question the elevated PSA and his history of prostate cancer indicate that that disease is active and the pathologic pelvic adenopathy most likely represent that though he could have simultaneous prostate and bladder cancers.. Certainly has gotten relief with the placement of Fried catheter, stabilization of the hematuria will be the most immediate concern and there will need to be some discussion with cardiology as to whether he needs ongoing antithrombotic therapy with regards to his AF Hemoglobin has fallen since admission probably representing a dilutional effect but overall remains in very good range and thus his blood loss has not been immediately impactful on his overall Red cell mass. We will need to continue to monitor and certainly the blood loss could lead to some evolution of iron deficiency (2) Hyponatremia: Prostate cancer is not usually associated with PROFESSOR/NURSE ANESTHETIST metastases nor with a parane oplastic SIADH. Just watching him during the interview he frequently sips on his water cup and it is possible that this may have been related at least in part to excessive free water replacement and in the context of mild hypovolemia. Nephrology is evaluating (3) Prostate CA: With his change in urology team he was resumed on ADT in the spring but his PSA has been rising despite that. We do note the testosterone levels were suppressed apparently even prior to the start of the ADT with low levels in June of this year. The addition of docetaxel and/or ARPI would certainly offer some potential better responsiveness for what is apparently a castrate resistant process. ARPI carries the "baggage" of exacerbating cardiovascular disease which may be of some relevance in this 87-year-old gentleman though that is more a longer-term issue and at least acutely abiraterone/prednisone might be an easy addition. While docetaxel does not carry that specific concern, it is an aggressive cytotoxic and we would have to be very wary of its role in a near nonagenarian. While unlikely, as above there is also the potential confounding issue of a separate bladder malignancy. Most appropriately will focus on immediate stabilization of urological function and of the hematuria as well as any potential bladder diagnostics that urology feels would be worthwhile. As above we will also need to make determinations as to how to best approach is atrial fibrillation long-term with regards to the pros and cons of ongoing antithrombotic therapy. As those most acute issues are stabilized and as well we define and stabilize his hyponatremia we can return to a more intermediate term discussion as to how we may augment his ADT. This will be not just a technical decision but also a philosophical one as to the balance of the potential toxicities of either additional intervention and to what extent those fit into his overall perceptions of what would constitute optimal quality of life. Plan Immediate issues will be to stabilize and define the etiology of the gross hematuria particularly with respect to whether there is a separate primary bladder process as cause. This in turn will lead to discussions with cardiology as to the need for an optimal approach to antithrombotic therapy with respect to his atrial fibrillation Also look to nephrology ongoing review as to the cause of his hyponatremia and what we can do to prevent its relapse As those issues are stabilized we can extend discussions of what looks like a ca strate resistant prostate cancer and the roles for ARPI and/or docetaxel. That discussion should not be just a technical one but incorporate palliative care perspectives on his desired parameters of care and goals for quality of life now versus quality of life longer-term History of Present Illness Reason for Consultation: Patient with 30-year history of prostate cancer but recent aggressive relapse as pathologic pelvic adenopathy and rising PSA admitted with hematuria. Attending Physician: Duane Celeste MD History of Present Illness 87-year-old gentleman apparently originally diagnosed with prostate cancer in 1992 status post prostatectomy at that time. Apparent relapse in 2005 felt to be localized treated with radiation therapy. As apparently in the interim had variable rises in PSA treated with intermittent ADT. He had most recently been off of ADT treatment for several years when he initiated treatment with Dr. Peterson in the spring of this year. Baseline PSA from June 12, 2020 was 0.168, PSA June 10, [address] and bone scan imaging at that time showed multiple pathologic pain pelvic lymph nodes but no CT evidence of bony metastasis and only subtle changes on the bone scan in the cervical and upper thoracic spine. Patient was started back on ADT in August but we note that his PSA had actually risen as of this admission to 27.755. He reports a history of intermittent hematuria and hematochezia with what by description sounds like a history of radiation proctitis and possibly cystitis. He presented with more acute hematuria and urinary obstruction but the pelvic discomfort has been significantly relieved by the placement of Fried catheter. He is still draining grossly bloody urine into his Fried bag. We know he has a history of atrial fibrillation and was on long-term aspirin for that. He did also present with significant hyponatremia He is not aware of a dramatic family history of cancer. He notes that he had an uncle on his mother side who may have had prostate cancer but this was probably at an older age. There is no significant family history of ovarian, breast, pancreatic cancer which he is aware nor more widespread history of prostate cancer Allergies Allergy/AdvReac Type Severity Reaction Status Date / Time bee venom protein (honey bee) Allergy Unknown UNKNOWN Verified 04/29/22 14:30 Penicillins Allergy Unknown RASH Verified 04/29/22 14:30 amlodipine AdvReac Severe Edema,fluid Verified 04/29/22 14:30 retention Bee sting Allergy Unknown Unknown Uncoded 04/29/22 14:30 Wasp Allergy Unknown Unknown Uncoded 04/29/22 14:30 Home Medications Medication Instructions Recorded Confirmed Type lisinopril 40 mg tablet 40 mg PO QAM 10/20/18 11/30/22 History metoprolol succinate 100 mg 100 mg PO HS 05/28/19 11/30/22 History tablet,extended release 24 hr aspirin 81 mg tablet,delayed 81 mg PO QAM 02/02/20 11/30/22 History release (Catherine Low Dose Aspirin) spironolactone 25 mg tablet 25 mg PO DAILY 12/08/21 11/30/22 History furosemide 20 mg tablet 20 mg PO QAM 11/30/22 11/30/22 History Patient History Medical History Atrial fibrillation Diarrhea Diverticulosis of colon Longstanding persistent atrial fibrillation Orthostatic syncope Peripheral edema Prostate cancer Syncope Syncope Surgical History History of prostatectomy 1995 Family History Father Myocardial infarction Mother Diabetes Denies family history of Stroke Social History Smoking Status: Never smoker Tobacco Type: Cigarettes Hx Alcohol Use: No Hx Substance Use: No Preferred Language: [place] Communication Ability: Effective Client Care Coordinator Required: No Beliefs That Will Affect Care: None marital status: / Current Living Situation: Alone current occupational status: retired Feels Safe at Home: Yes Assistive Devices: Cane and Walker Physical Exam Physical Exam: Alert, cooperative, currently in no acute distress with a Fried in and back showing gross hematuria. Speech is fluent and overall he seems appropriate and with a basically intact cognitive function though he clearly struggles a bit with both short and long- term memory. No focality to his neurologic exam otherwise at this time No clear pathologic adenopathy in cervical supraclavicular axillary region Lungs seem clear to percussion auscultation Cardiac rhythm is irregular but without pathological murmurs rubs The abdomen is protuberant given his BMI but there is no clearly definable abdominal mass organomegaly Results & Data Vital Signs (Past 12 Hours) Vital Signs Temp Pulse Pulse Resp BP Pulse Ox O2 Del Method 12/01/22 02:30 36.8 C 58 L 18 108/66 92 Room Air 12/01/22 00:00 46 L 11/30/22 23:09 36.7 C 64 20 110/73 93 Room Air 11/30/22 20:00 Room Air 11/30/22 19:51 36.7 C 51 L 20 121/78 95 Room Air Laboratory Results Laboratory Results - last 24 hr 11/30/22 11/30/22 11/30/22 09:46 09:46 10:26 WBC 7.91 RBC 4.26 L Hgb 13.4 L Hct 35.9 L MCV 84.3 MCH 31.5 MCHC 37.3 H RDW Std Deviation 38.9 RDW Coeff of [place] 12.7 Plt Count 249 MPV 9.7 Immature Gran % (Auto) 0.5 Neut % (Auto) 87.5 Lymph % (Auto) 5.8 [place] % (Auto) 5.4 Eos % (Auto) 0.5 Baso % (Auto) 0.3 Neut # (Auto) 6.92 H Lymph # (Auto) 0.46 L [place] # (Auto) 0.43 Eos # (Auto) 0.04 Baso # (Auto) 0.02 Immature Gran # (Auto) 0.04 PT INR APTT PTT Ratio Sodium 119 L* Potassium 4.4 Chloride 85 L Carbon Dioxide 27 Anion Gap 7 BUN 18 Creatinine 0.87 Est Cr Clr Drug Dosing Not Reportable Est GFR ( Amer) 88.7 Est GFR (Non-Af Amer) 76.5 BUN/Creatinine Ratio 20.7 H Glucose 127 H Osmolality Calcium 10.1 Magnesium Total Bilirubin 0.9 AST 19 ALT 11 Alkaline Phosphatase 84 Total Protein 8.0 Albumin 4.4 Globulin 3.6 Albumin/Globulin Ratio 1.2 Prostate Specific Ag TSH Urine Color Red Urine Appearance Cloudy A Urine pH 7.0 Ur Specific [place] >= 1.030 Urine Protein 3+ H Urine Glucose (UA) Negative Urine Ketones Negative Urine Blood 3+ H Urine Nitrite Negative Urine Bilirubin Negative Urine Urobilinogen Negative Ur Leukocyte Esterase Negative Urine RBC >30 H Urine WBC >30 H Ur Epithelial Cells 0-5 Urine Bacteria Negative Urine Osmolality Ur Random Sodium 11/30/22 11/30/22 11/30/22 13:19 13:19 13:45 WBC RBC Hgb Hct MCV MCH MCHC RDW Std Deviation RDW Coeff of [place] Plt Count MPV Immature Gran % (Auto) Neut % (Auto) Lymph % (Auto) [place] % (Auto) Eos % (Auto) Baso % (Auto) Neut # (Auto) Lymph # (Auto) [place] # (Auto) Eos # (Auto) Baso # (Auto) Immature Gran # (Auto) PT INR APTT PTT Ratio Sodium Potassium Chloride Carbon Dioxide Anion Gap BUN Creatinine Est Cr Clr Drug Dosing Est GFR ( Amer) Est GFR (Non-Af Amer) BUN/Creatinine Ratio Glucose Osmolality Calcium Magnesium Total Bilirubin AST ALT Alkaline Phosphatase Total Protein Albumin Globulin Albumin/Globulin Ratio Prostate Specific Ag 27.755 H TSH Urine Color Urine Appearance Urine pH Ur Specific [place] Urine Protein Urine Glucose (UA) Urine Ketones Urine Blood Urine Nitrite Urine Bilirubin Urine Urobilinogen Ur Leukocyte Esterase Urine RBC Urine WBC Ur Epithelial Cells Urine Bacteria Urine Osmolality 269 L Ur Random Sodium 41 11/30/22 11/30/22 11/30/22 13:45 13:45 13:45 WBC RBC Hgb Hct MCV MCH MCHC RDW Std Deviation RDW Coeff of [place] Plt Count MPV Immature Gran % (Auto) Neut % (Auto) Lymph % (Auto) [place] % (Auto) Eos % (Auto) Baso % (Auto) Neut # (Auto) Lymph # (Auto) [place] # (Auto) Eos # (Auto) Baso # (Auto) Immature Gran # (Auto) PT INR APTT PTT Ratio Sodium 120 L Potassium 4.4 Chloride 88 L Carbon Dioxide 26 Anion Gap 6 BUN 18 Creatinine 0.79 Est Cr Clr Drug Dosing Not Reportable Est GFR ( Amer) 92.3 Est GFR (Non-Af Amer) 79.6 BUN/Creatinine Ratio 22.8 H Glucose 118 H Osmolality 258 L Calcium 9.3 Magnesium Total Bilirubin AST ALT Alkaline Phosphatase Total Protein Albumin Globulin Albumin/Globulin Ratio Prostate Specific Ag TSH 0.899 Urine Color Urine Appearance Urine pH Ur Specific [place] Urine Protein Urine Glucose (UA) Urine Ketones Urine Blood Urine Nitrite Urine Bilirubin Urine Urobilinogen Ur Leukocyte Esterase Urine RBC Urine WBC Ur Epithelial Cells Urine Bacteria Urine Osmolality Ur Random Sodium 11/30/22 11/30/22 11/30/22 13:45 17:11 17:11 WBC 7.80 RBC 3.81 L Hgb 11.9 L Hct 32.9 L MCV 86.4 MCH 31.2 MCHC 36.2 H RDW Std Deviation 39.8 RDW Coeff of [place] 12.7 Plt Count 226 MPV 10.0 Immature Gran % (Auto) Neut % (Auto) Lymph % (Auto) [place] % (Auto) Eos % (Auto) Baso % (Auto) Neut # (Auto) Lymph # (Auto) [place] # (Auto) Eos # (Auto) Baso # (Auto) Immature Gran # (Auto) PT 11.6 INR 1.1 APTT 29.7 PTT Ratio 1.1 Sodium 120 L Potassium 4.2 Chloride 88 L Carbon Dioxide 27 Anion Gap 5 BUN 16 Creatinine 0.81 Est Cr Clr Drug Dosing 82.3 Est GFR ( Amer) 91.3 Est GFR (Non-Af Amer) 78.8 BUN/Creatinine Ratio 19.8 Glucose 124 H Osmolality Calcium 9.4 Magnesium Total Bilirubin AST ALT Alkaline Phosphatase Total Protein Albumin Globulin Albumin/Globulin Ratio Prostate Specific Ag TSH Urine Color Urine Appearance Urine pH Ur Specific [place] Urine Protein Urine Glucose (UA) Urine Ketones Urine Blood Urine Nitrite Urine Bilirubin Urine Urobilinogen Ur Leukocyte Esterase Urine RBC Urine WBC Ur Epithelial Cells Urine Bacteria Urine Osmolality Ur Random Sodium 11/30/22 21:33 WBC RBC Hgb Hct MCV MCH MCHC RDW Std Deviation RDW Coeff of [place] Plt Count MPV Immature Gran % (Auto) Neut % (Auto) Lymph % (Auto) [place] % (Auto) Eos % (Auto) Baso % (Auto) Neut # (Auto) Lymph # (Auto) [place] # (Auto) Eos # (Auto) Baso # (Auto) Immature Gran # (Auto) PT INR APTT PTT Ratio Sodium 120 L Potassium 4.1 Chloride 90 L Carbon Dioxide 24 Anion Gap 6 BUN 17 Creatinine 0.92 Est Cr Clr Drug Dosing 72.5 Est GFR ( Amer) 85.2 Est GFR (Non-Af Amer) 73.5 BUN/Creatinine Ratio 18.5 Glucose 112 H Osmolality Calcium 8.7 Magnesium 1.6 L Total Bilirubin AST ALT Alkaline Phosphatase Total Protein Albumin Globulin Albumin/Globulin Ratio Prostate Specific Ag TSH Urine Color Urine Appearance Urine pH Ur Specific [place] Urine Protein Urine Glucose (UA) Urine Ketones Urine Blood Urine Nitrite Urine Bilirubin Urine Urobilinogen Ur Leukocyte Esterase Urine RBC Urine WBC Ur Epithelial Cells Urine Bacteria Urine Osmolality Ur Random Sodium Diagnostic Findings Abdomen/Pelvis CT 11/30/22 11:31 CT SCAN OF THE ABDOMEN AND PELVIS WITHOUT IV CONTRAST CLINICAL HISTORY: Hematuria. Prostate cancer. Generalized weakness. COMPARISON STUDY: Abdominal CT dated 07/01/2022. TECHNIQUE: CT scan of the abdomen and pelvis is performed from the lung bases to the proximal femora. Images are reviewed in the axial, sagittal, and coronal planes. IV contrast was not administered for this examination. A dose lowering technique was utilized adhering to the principles of ALARA. Note that the examination was performed in suboptimal fashion without oral and IV contrast. CT DOSE: 1549.61 mGy.cm FINDINGS: Lung bases: The heart is enlarged and without pericardial effusion. There are scattered calcified granulomas. A dependent scarring/atelectasis is seen at both lung bases. No airspace consolidation or pleural effusion is identified. There is a small hiatal hernia. Liver: The unenhanced liver is normal in size, contour, and attenuation. There is no intrahepatic biliary ductal dilatation. Scattered hepatic cysts measuring up to 2.4 cm. Gallbladder: Question cholelithiasis. There is no CT evidence of cholecystitis. Spleen: Normal in size and attenuation. Pancreas: The unenhanced pancreas is atrophic and grossly unremarkable. Adrenal glands: Unremarkable. Kidneys: The unenhanced kidneys demonstrate cortical atrophy. There is mild left hydroureteronephrosis, likely related to the agree of bladder distention. No obstructing stone or lesion is identified. No hydronephrosis is seen on the right. No renal calculi are identified. Left renal cysts measure up to 5.8 cm. Abdominal vasculature: The abdominal aorta is normal in course and caliber noting moderate to advanced atherosclerotic calcification. Bowel: There is no bowel obstruction. The appendix is well-visualized and normal. Peritoneum: There is no intraperitoneal free air or abdominal ascites. Lymphadenopathy: There is retroperitoneal lymphadenopathy. An aortocaval node on image #188 measures 3.0 x 2.1 cm. A left periaortic node on image #182 measures 1.5 x 1.1 cm. There are also mildly enlarged right iliac chain nodes. A node on image #20 and 61 measures 1.6 x 1.4 cm. Pelvic viscera: The bladder is distended, and the wall appears thickened/trabeculated suggesting chronic outlet obstruction. Layering hyperdense material within the bladder lumen seen on image #327 is new from 06/04/2022 and likely represents blood clots. The prostate gland is surgically absent. Surgical clips are seen throughout the pelvis. Skeletal structures: The skeletal structures are heterogeneously osteopenic. No lytic or blastic lesions are clearly identified. IMPRESSION: 1. Status post prostatectomy. 2. The bladder is distended and contains layering hyperdense debris. This is new from 06/04/2022 and typical for blood clots. Correlate with clinical findings and urinalysis. 3. There is mild left hydroureteronephrosis, likely related to bladder distention. 4. Pathologically enlarged retroperitoneal and right iliac chain lymphadenopathy is similar to previous and highly suspicious for metastatic disease. 5. No lytic or blastic lesions are clearly seen. 6. Cardiomegaly. 7. Additional findings as above. ACT 112: Negative or not required by law. Electronically signed by: Solomon Hector M.D. 11/30/2022 1:16 PM PG Care Time/CCT Total # of Minutes Spent Total Time Spent with Patient: Total time spent is greater than 50% in coordination of care (as documented) at patient's floor/unit and/or counseling patient: Coding Level of Care Code 20311 IN/OBS CONSULT LVL 4,60M Diagnoses Hematuria R31.9 Hyponatremia E87.1 Prostate CA C61
[2022-12-01 07:20] LABS: Hemoglobin 10.6 g/dl (14.0-18.0); Mean Corpuscular Hemoglobin 31.2 pg (25.0-34.0); Mean Corpuscular Hgb Conc 35.3 g/dL (32.0-36.0); Mean Corpuscular Volume 88.2 fL (80.0-100.0); Platelet Count 194 K/uL (130-400); RDW Coefficient of Variation 13.2 % (11.5-14.5); RDW Standard Deviation 42.8 fL (36.4-46.3); White Blood Count 5.88 K/ul (4.8-10.8)
[2022-12-01 07:44] LABS: BUN Creatinine Ratio 18.4 (10-20); Calcium 8.5 mg/dl (8.6-10.3); Creatinine Clr Calc Pharmacy 64.5 ml/min; Est GFR (African American) 74.3 ml/min; Est GFR (Non-African American) 64.1 ml/min; Magnesium 2.1 mg/dl (1.7-2.4)
[2022-12-01] MEDS ORDERED: SODIUM CHLORIDE 3 % 100 ML IV ONE (08:51)
[2022-12-01] MEDS ORDERED: STAT IV STA ×3 (08:51→20:25)
--- NOTE | 2022-12-01 09:20 | Urology Progress Note ---
Date of Service December 01, 2022 Assessment & Plan (1) Urinary retention: (2) Hematuria: Plan: 87-year-old male with history of prostate cancer admitted for hematuria and hyponatremia. Patient afebrile and hemodynamically stable Labs reviewedcreatinine 1.03, WBC 5.88, hemoglobin 10.6, Na 123 - continue to trend labs Urine culture showed 3 types of organisms, all moderate counts Fried patent and rm red urine with a few small passable clots noted Aspirin on hold Continue to monitor catheter - okay to gently hand irrigate catheter prn clots, obstruction or suprapubic discomfort If catheter becomes obstructed, then can upsize catheter Likely maintain catheter for 7-10 days in the setting of urinary retention Recommend cystoscopy outpatient pending clinical course due to hematuria Received Lupron in August PSA has risen to 27.755 Oncology consulted - appreciate recommendations Continue supportive care and management per hospital medicine Recommend bowel regimen to normalize bowels will follow Admission and Anticipated Discharge Date Admission Date: November 30, 2022 Subjective Patient seen and examined at bedside this morning, chart reviewed No acute issues overnight Fried patent and draining rm red urine with a few small clots easily passing through No manual irrigation required overnight Denies abdominal or suprapubic discomfort Denies nausea, vomiting, fever or chills Reports last BM 2 days ago Review of Systems Constitutional: as per Subjective / HPI Gastrointestinal: as per Subjective / HPI Genitourinary: + as per Subjective / HPI Physical Exam Physical Exam: General: well-appearing, no acute distress HEENT: Normocephalic Pulmonary: Nonlabored respirations Abdomen: Soft, nondistended, nontender Extremities: Moves all 4 spontaneously Neuro: No gross deficits Psych: alert and oriented, normal mood Skin: Warm, dry, no rashes noted : Fried patent and draining rm red urine, a few small clots noted which easily passed through Results & Data Vital Signs (Past 12 Hours) Vital Signs Temp Pulse Pulse Resp BP Pulse Ox O2 Del Method 12/01/22 07:37 36.6 C 53 L 16 109/61 96 Room Air 12/01/22 07:07 71 12/01/22 02:30 36.8 C 58 L 18 108/66 92 Room Air 12/01/22 00:00 46 L 11/30/22 23:09 36.7 C 64 20 110/73 93 Room Air PG Care Time/CCT Total # of Minutes Spent Total Time Spent with Patient: Total time spent is greater than 50% in coordination of care (as documented) at patient's floor/unit and/or counseling patient: Coding Level of Care Code 90847 SUB INP/OBS CARE 1/25MIN Diagnoses Urinary retention R33.9 Hematuria R31.9
--- NOTE | 2022-12-01 09:39 | Nephrology Progress Note ---
Date of Service December 01, 2022 Assessment & Plan (1) Hyponatremia: Plan: Euvolemic. Chronic. Appears asymptomatic. Sodium improving with 3% saline boluses overnight. Additional 100 ml 3% bolus ordered this AM. Repeat sodium at noon. Diuretics held. Maintain free water restriction, 1 L/d. Document strict I/O's. (2) Urinary retention: Plan: Fried draining. Urology following. Non-oliguric. Creatinine remains normal. (3) Hematuria: (4) Malignant neoplasm of prostate metastatic to bone: Plan: Oncology consultation pending. (5) Longstanding persistent atrial fibrillation: Admission and Anticipated Discharge Date Admission Date: November 30, 2022 Subjective No acute events overnight. No complaints this AM. Fried draining rm colored urine. No fevers or chills. Appetite is good. No fluid retention or edema. Review of Systems Review of Systems: All systems reviewed & are unremarkable except as noted in HPI & below Physical Exam Constitutional: well developed; no acute distress Eyes: + anicteric sclerae; no corneal abnormality ENMT: Mouth: no oral mucosal abnormality and oral mucous membranes not dry Neck: normal visual inspection and trachea midline Respiratory: normal respiratory effort Auscultation: lungs clear to auscultation bilaterally Cardiovascular: Rate/Rhythm: regular rate and + irregularly irregular Heart Sounds: normal S1 and normal S2 Extremities: + edema (legs wrapped) Musculoskeletal: Extremities: no cyanosis and no clubbing Skin: normal turgor; no lesions Neurologic: Motor/Sensory: no tremor and no asterixis Psychiatric: Orientation: alert and oriented x 3 Results & Data Vital Signs (Past 12 Hours) Vital Signs Temp Pulse Pulse Resp BP Pulse Ox O2 Del Method 12/01/22 07:37 36.6 C 53 L 16 109/61 96 Room Air 12/01/22 07:07 71 12/01/22 02:30 36.8 C 58 L 18 108/66 92 Room Air 12/01/22 00:00 46 L 11/30/22 23:09 36.7 C 64 20 110/73 93 Room Air Laboratory Results Laboratory Results - last 24 hr 11/30/22 11/30/22 11/30/22 09:46 09:46 10:26 WBC 7.91 RBC 4.26 L Hgb 13.4 L Hct 35.9 L MCV 84.3 MCH 31.5 MCHC 37.3 H RDW Std Deviation 38.9 RDW Coeff of [place] 12.7 Plt Count 249 MPV 9.7 Immature Gran % (Auto) 0.5 Neut % (Auto) 87.5 Lymph % (Auto) 5.8 [place] % (Auto) 5.4 Eos % (Auto) 0.5 Baso % (Auto) 0.3 Neut # (Auto) 6.92 H Lymph # (Auto) 0.46 L [place] # (Auto) 0.43 Eos # (Auto) 0.04 Baso # (Auto) 0.02 Immature Gran # (Auto) 0.04 PT INR APTT PTT Ratio Sodium 119 L* Potassium 4.4 Chloride 85 L Carbon Dioxide 27 Anion Gap 7 BUN 18 Creatinine 0.87 Est Cr Clr Drug Dosing Not Reportable Est GFR ( Amer) 88.7 Est GFR (Non-Af Amer) 76.5 BUN/Creatinine Ratio 20.7 H Glucose 127 H Osmolality Calcium 10.1 Magnesium Total Bilirubin 0.9 AST 19 ALT 11 Alkaline Phosphatase 84 B-Natriuretic Peptide Total Protein 8.0 Albumin 4.4 Globulin 3.6 Albumin/Globulin Ratio 1.2 Prostate Specific Ag TSH Urine Color Red Urine Appearance Cloudy A Urine pH 7.0 Ur Specific [place] >= 1.030 Urine Protein 3+ H Urine Glucose (UA) Negative Urine Ketones Negative Urine Blood 3+ H Urine Nitrite Negative Urine Bilirubin Negative Urine Urobilinogen Negative Ur Leukocyte Esterase Negative Urine RBC >30 H Urine WBC >30 H Ur Epithelial Cells 0-5 Urine Bacteria Negative Urine Osmolality Ur Random Sodium 11/30/22 11/30/22 11/30/22 13:19 13:19 13:45 WBC RBC Hgb Hct MCV MCH MCHC RDW Std Deviation RDW Coeff of [place] Plt Count MPV Immature Gran % (Auto) Neut % (Auto) Lymph % (Auto) [place] % (Auto) Eos % (Auto) Baso % (Auto) Neut # (Auto) Lymph # (Auto) [place] # (Auto) Eos # (Auto) Baso # (Auto) Immature Gran # (Auto) PT INR APTT PTT Ratio Sodium Potassium Chloride Carbon Dioxide Anion Gap BUN Creatinine Est Cr Clr Drug Dosing Est GFR ( Amer) Est GFR (Non-Af Amer) BUN/Creatinine Ratio Glucose Osmolality Calcium Magnesium Total Bilirubin AST ALT Alkaline Phosphatase B-Natriuretic Peptide Total Protein Albumin Globulin Albumin/Globulin Ratio Prostate Specific Ag 27.755 H TSH Urine Color Urine Appearance Urine pH Ur Specific [place] Urine Protein Urine Glucose (UA) Urine Ketones Urine Blood Urine Nitrite Urine Bilirubin Urine Urobilinogen Ur Leukocyte Esterase Urine RBC Urine WBC Ur Epithelial Cells Urine Bacteria Urine Osmolality 269 L Ur Random Sodium 41 11/30/22 11/30/22 11/30/22 13:45 13:45 13:45 WBC RBC Hgb Hct MCV MCH MCHC RDW Std Deviation RDW Coeff of [place] Plt Count MPV Immature Gran % (Auto) Neut % (Auto) Lymph % (Auto) [place] % (Auto) Eos % (Auto) Baso % (Auto) Neut # (Auto) Lymph # (Auto) [place] # (Auto) Eos # (Auto) Baso # (Auto) Immature Gran # (Auto) PT INR APTT PTT Ratio Sodium 120 L Potassium 4.4 Chloride 88 L Carbon Dioxide 26 Anion Gap 6 BUN 18 Creatinine 0.79 Est Cr Clr Drug Dosing Not Reportable Est GFR ( Amer) 92.3 Est GFR (Non-Af Amer) 79.6 BUN/Creatinine Ratio 22.8 H Glucose 118 H Osmolality 258 L Calcium 9.3 Magnesium Total Bilirubin AST ALT Alkaline Phosphatase B-Natriuretic Peptide Total Protein Albumin Globulin Albumin/Globulin Ratio Prostate Specific Ag TSH 0.899 Urine Color Urine Appearance Urine pH Ur Specific [place] Urine Protein Urine Glucose (UA) Urine Ketones Urine Blood Urine Nitrite Urine Bilirubin Urine Urobilinogen Ur Leukocyte Esterase Urine RBC Urine WBC Ur Epithelial Cells Urine Bacteria Urine Osmolality Ur Random Sodium 11/30/22 11/30/22 11/30/22 13:45 17:11 17:11 WBC 7.80 RBC 3.81 L Hgb 11.9 L Hct 32.9 L MCV 86.4 MCH 31.2 MCHC 36.2 H RDW Std Deviation 39.8 RDW Coeff of [place] 12.7 Plt Count 226 MPV 10.0 Immature Gran % (Auto) Neut % (Auto) Lymph % (Auto) [place] % (Auto) Eos % (Auto) Baso % (Auto) Neut # (Auto) Lymph # (Auto) [place] # (Auto) Eos # (Auto) Baso # (Auto) Immature Gran # (Auto) PT 11.6 INR 1.1 APTT 29.7 PTT Ratio 1.1 Sodium 120 L Potassium 4.2 Chloride 88 L Carbon Dioxide 27 Anion Gap 5 BUN 16 Creatinine 0.81 Est Cr Clr Drug Dosing 82.3 Est GFR ( Amer) 91.3 Est GFR (Non-Af Amer) 78.8 BUN/Creatinine Ratio 19.8 Glucose 124 H Osmolality Calcium 9.4 Magnesium Total Bilirubin AST ALT Alkaline Phosphatase B-Natriuretic Peptide Total Protein Albumin Globulin Albumin/Globulin Ratio Prostate Specific Ag TSH Urine Color Urine Appearance Urine pH Ur Specific [place] Urine Protein Urine Glucose (UA) Urine Ketones Urine Blood Urine Nitrite Urine Bilirubin Urine Urobilinogen Ur Leukocyte Esterase Urine RBC Urine WBC Ur Epithelial Cells Urine Bacteria Urine Osmolality Ur Random Sodium 11/30/22 12/01/22 12/01/22 21:33 06:50 06:50 WBC 5.88 RBC 3.40 L Hgb 10.6 L Hct 30.0 L MCV 88.2 MCH 31.2 MCHC 35.3 RDW Std Deviation 42.8 RDW Coeff of [place] 13.2 Plt Count 194 MPV 10.0 Immature Gran % (Auto) Neut % (Auto) Lymph % (Auto) [place] % (Auto) Eos % (Auto) Baso % (Auto) Neut # (Auto) Lymph # (Auto) [place] # (Auto) Eos # (Auto) Baso # (Auto) Immature Gran # (Auto) PT INR APTT PTT Ratio Sodium 120 L 123 L Potassium 4.1 4.0 Chloride 90 L 93 L Carbon Dioxide 24 25 Anion Gap 6 5 BUN 17 19 Creatinine 0.92 1.03 Est Cr Clr Drug Dosing 72.5 64.5 Est GFR ( Amer) 85.2 74.3 Est GFR (Non-Af Amer) 73.5 64.1 BUN/Creatinine Ratio 18.5 18.4 Glucose 112 H 99 Osmolality Calcium 8.7 8.5 L Magnesium 1.6 L 2.1 Total Bilirubin AST ALT Alkaline Phosphatase B-Natriuretic Peptide Total Protein Albumin Globulin Albumin/Globulin Ratio Prostate Specific Ag TSH Urine Color Urine Appearance Urine pH Ur Specific [place] Urine Protein Urine Glucose (UA) Urine Ketones Urine Blood Urine Nitrite Urine Bilirubin Urine Urobilinogen Ur Leukocyte Esterase Urine RBC Urine WBC Ur Epithelial Cells Urine Bacteria Urine Osmolality Ur Random Sodium 12/01/22 06:50 WBC RBC Hgb Hct MCV MCH MCHC RDW Std Deviation RDW Coeff of [place] Plt Count MPV Immature Gran % (Auto) Neut % (Auto) Lymph % (Auto) [place] % (Auto) Eos % (Auto) Baso % (Auto) Neut # (Auto) Lymph # (Auto) [place] # (Auto) Eos # (Auto) Baso # (Auto) Immature Gran # (Auto) PT INR APTT PTT Ratio Sodium Potassium Chloride Carbon Dioxide Anion Gap BUN Creatinine Est Cr Clr Drug Dosing Est GFR ( Amer) Est GFR (Non-Af Amer) BUN/Creatinine Ratio Glucose Osmolality Calcium Magnesium Total Bilirubin AST ALT Alkaline Phosphatase B-Natriuretic Peptide 356 H Total Protein Albumin Globulin Albumin/Globulin Ratio Prostate Specific Ag TSH Urine Color Urine Appearance Urine pH Ur Specific [place] Urine Protein Urine Glucose (UA) Urine Ketones Urine Blood Urine Nitrite Urine Bilirubin Urine Urobilinogen Ur Leukocyte Esterase Urine RBC Urine WBC Ur Epithelial Cells Urine Bacteria Urine Osmolality Ur Random Sodium PG Care Time/CCT Total # of Minutes Spent Total Time Spent with Patient: Total time spent is greater than 50% in coordination of care (as documented) at patient's floor/unit and/or counseling patient: Coding Level of Care Code 17419 SUB INP/OBS CARE 3/50MIN Diagnoses Hyponatremia E87.1 Urinary retention R33.9 Hematuria R31.9 Malignant neoplasm of prostate metastatic to bone C61; C79.51 Longstanding persistent atrial fibrillation I48.11
[2022-12-01] MEDS ORDERED: SODIUM CHLORIDE 3 % 150 ML IV ONE ×2 (15:40→20:25)
[2022-12-01] MEDS: POLYETHYLENE (MIRALAX) 17 GM PACK PO SCH (16:23)
[2022-12-01] MEDS: DOCUSATE SODIUM/SENNA 50/8.6MG TAB PO SCH ×2 (16:23→21:35)
[2022-12-01] MEDS: FAMOTIDINE 20 MG in SYRINGE 3 ML IV SCH (16:23)
--- NOTE | 2022-12-01 18:19 | Hospitalist Progress Note ---
Date of Service December 01, 2022 Assessment & Plan (1) Hematuria: Plan: ongoing hematuria and associated acute blood loass anemia With h/o prostate CA, possibly mets to pelvic lymph nodes seen on imaging (received Lupron injection in August, to get q6. Casodex on home medication list given prior reports concerns for bony disease but had never started this medication per daughter) Fried catheter placed here and draining rm red urine Urology consulted, CT A/P with mild left hydroureteronephrosis, blood in bladder,and enlarged pelvi and RP lymph nodes Needs cystoscopy in near future Hematuria could be from radiation cystitis but could be bladder mass? Follow CBC, urine (2) Hyponatremia: Plan: Na 119 on admission, prior borderline low levels but Na 138 on labs [facility] on daughters phone Ur Na and Ur Osm consistent with hypovolemia vs SIADH if euvolemic. TSH normal and do not suspect AI Holding further lasix/spironolactone Na+ slowly improving up to 125 now after 3% saline boluses Nephrology consulted, appreciate assistance Add on NaCl 1000mg po bid, fluid restrict free water to 1000mL/day Follow BMP (3) Prostate CA: Plan: Hx of, suspect recurrence w/ aggressive nature given significant elevated PSA to 27 (per daughter most recent 14 since starting Lupron in August, 1st dose) CTAP in August w/ appearance of metastatic disease to lymph nodes --Bone scan noting Small foci of radiotracer uptake within the upper cervical spine and T8 level which could represent metastatic foci. Urology consulted as above Oncology consult appreciated Need to have d/w Oncology with family and patient regarding any future treatment given advanced age, etc. (4) Urinary retention: Plan: suspect 2nd to clots from above urology on consult, appreciate recs/assistance (5) HTN (hypertension): Plan: BP stable [employer] on spironolactone 25mg, lisinopril 40mg, lasix 20mg daily (to help w/ leg swelling, venoseal by Sae in past), metoprolol 100mg HS Holding spironolactone/lasix to prevent dehydration, will hold lisinopril for now (6) Atrial fibrillation: Plan: In Afib on tele here with rates in 30s overnight Not on anticoagulation due to history of bleeding Lower dose of metoprolol to 50mg HS DVT proph: chemoproph contraindicated in setting of hematuria. SCDs ordered. Holding aspirin (has been held x past 2 days) PT/OT consults to be undertaken Plan Dispo-continued stay discussed care with daughter on phone at length on 12/01 Admission and Anticipated Discharge Date Admission Date: November 30, 2022 Subjective Continues to drain dark red urine in Fried but no clots or blockages in catheter. Pt denies any pain. He is eating regular meals. Tele with slow afib overnight with pauses up to 3.7seconds. Toprol XL held Tele now with afib with rates in 80s I discussed his care at length with his daughter on the phone Physical Exam Constitutional: WD/WN, vitals as above Neck: trachea midline, no thyromegaly Respiratory: normal respiratory effort, lungs clear to auscultation Cardiovascular: Rate/Rhythm: regular rate and + irregularly irregular Chest (Breasts): Chest: normal inspection of chest Gastrointestinal (Abdomen): normal bowel sounds, soft, nontender, no hepatosplenomegaly Musculoskeletal: Extremities: extremities normal to inspection; no cyanosis and no clubbing Skin: no rashes, warm and dry Neurologic: moves all extremities and awake; no focal motor deficits Psychiatric: A+Ox3, euthymic affect Genitourinary: Fried in place with rm red urine Lymphatic: no lymphedema Results & Data Results & Data Vital Signs (Past 12 Hours) Vital Signs Temp Pulse Pulse Resp BP Pulse Ox O2 Del Method 12/01/22 15:00 59 L 12/01/22 15:10 36.8 C 100 H 20 107/73 93 Room Air 12/01/22 12:20 Room Air 12/01/22 11:09 36.6 C 67 20 103/65 92 Room Air 12/01/22 07:37 36.6 C 53 L 16 109/61 96 Room Air 12/01/22 07:07 71 Laboratory Results CBC, BMP, Magnesium, PSA reviewed PG Care Time/CCT Total # of Minutes Spent Total Time Spent with Patient: Total time spent is greater than 50% in coordination of care (as documented) at patient's floor/unit and/or counseling patient: Coding Level of Care Code 78641 SUB INP/OBS CARE 3/50MIN Diagnoses Hematuria R31.9 Hyponatremia E87.1 Prostate CA C61 Urinary retention R33.9 HTN (hypertension) I10 Atrial fibrillation I48.91
[2022-12-01 19:09] LABS: Hematocrit (blood only) 35.3 % (42.0-52.0); Hemoglobin 12.4 g/dl (14.0-18.0); Mean Corpuscular Hgb Conc 35.1 g/dL (32.0-36.0); Mean Corpuscular Volume 88.3 fL (80.0-100.0); Mean Platelet Volume 9.8 fL (9.4-12.4); Platelet Count 266 K/uL (130-400); RDW Coefficient of Variation 13.4 % (11.5-14.5); RDW Standard Deviation 43.8 fL (36.4-46.3); White Blood Count 9.48 K/ul (4.8-10.8)
[2022-12-01] MEDS: METOPROLOL SUCC 50MG EXT REL TAB PO SCH (21:26)
[2022-12-01] MEDS: SODIUM CHLORIDE 1 GM TABLET PO SCH (21:35)
[2022-12-02 08:10] LABS: Basophils # (auto) 0.06 K/uL (0.00-0.20); Basophils % (auto) 1.1 %; Eosinophils # (auto) 0.13 K/uL (0.00-0.50); Eosinophils % (auto) 2.3 %; Hematocrit (blood only) 33.4 % (42.0-52.0); Hemoglobin 11.8 g/dl (14.0-18.0); Immature Granulocytes # (auto) 0.02 K/uL (0.01-0.20); Immature Granulocytes % (auto) 0.4 %; Lymphocytes # (auto) 0.62 K/uL (1.20-3.40); Mean Corpuscular Hemoglobin 31.2 pg (25.0-34.0); Mean Corpuscular Hgb Conc 35.3 g/dL (32.0-36.0); Mean Corpuscular Volume 88.4 fL (80.0-100.0); Mean Platelet Volume 9.9 fL (9.4-12.4); Monocytes # (auto) 0.59 K/uL (0.11-0.59); Monocytes % (auto) 10.5 %; Neutrophils % (auto) 74.7 %; Platelet Count 218 K/uL (130-400); RDW Coefficient of Variation 13.7 % (11.5-14.5); RDW Standard Deviation 44.1 fL (36.4-46.3); Red Blood Count 3.78 M/uL (4.70-6.10); White Blood Count 5.62 K/ul (4.8-10.8)
[2022-12-02 08:32] LABS: Albumin Level 3.7 gm/dl (3.4-5.0); BUN Creatinine Ratio 19.8 (10-20); Creatinine Clr Calc Pharmacy 65.6 ml/min; Est GFR (African American) 76.1 ml/min; Est GFR (Non-African American) 65.6 ml/min; Phosphorus 2.6 mg/dl (2.5-4.9); Potassium 4.1 mmol/L (3.5-5.1)
[2022-12-02] MEDS: DOCUSATE SODIUM/SENNA 50/8.6MG TAB PO SCH (08:45)
[2022-12-02] MEDS ORDERED: STAT IV STA (08:45)
[2022-12-02] MEDS: SODIUM CHLORIDE 1 GM TABLET PO SCH ×2 (08:45→20:23)
[2022-12-02] MEDS: POLYETHYLENE (MIRALAX) 17 GM PACK PO SCH (08:45)
[2022-12-02] MEDS ORDERED: SODIUM CHLORIDE 3 % 150 ML IV ONE (09:00)
--- NOTE | 2022-12-02 09:28 | Urology Progress Note ---
Date of Service December 02, 2022 Assessment & Plan (1) Urinary retention: (2) Hematuria: Plan: 87 yo M with hx of prostate cancer s/p prostatectomy and radiation therapy admitted for hematuria, urinary retention and hyponatremia. Afebrile and hemodynamically stable Labs reviewedcreatinine 1.01, WBC 5.62, hemoglobin 11.8, Na 129 - continue to trend labs Aspirin on hold Urine culture showed 3 types of organisms, all moderate counts Fried patent and rm red urine without clots noted this morning, no manual irrigation needed overnight Continue to monitor catheter - okay to gently hand irrigate catheter prn clots, obstruction or suprapubic discomfort If catheter becomes obstructed, then can upsize catheter Likely maintain catheter for 7-10 days in the setting of urinary retention Recommend cystoscopy outpatient pending clinical course due to hematuria Continue supportive care and medical management per hospital medicine Recommend bowel regimen to normalize bowels will follow Admission and Anticipated Discharge Date Admission Date: November 30, 2022 Subjective Patient seen and examined at bedside this morning, chart reviewed No acute issues overnight He denies abdominal or bladder discomfort Fried patent and draining rm red urine, no clots noted in tubing Denies nausea, vomiting, fever or chills Review of Systems Constitutional: as per Subjective / HPI Gastrointestinal: as per Subjective / HPI Genitourinary: + as per Subjective / HPI Physical Exam Physical Exam: General: well-appearing, no acute distress HEENT: Normocephalic Pulmonary: Nonlabored respirations Abdomen: Nondistended Extremities: Moves all 4 spontaneously Neuro: No gross deficits Psych: alert and oriented, normal mood : Fried patent and draining rm red urine, no clots noted Results & Data Vital Signs (Past 12 Hours) Vital Signs Temp Pulse Pulse Resp BP BP Pulse Ox 12/02/22 09:00 12/02/22 07:57 36.9 C 69 18 122/80 93 12/02/22 02:57 36.4 C L 83 16 127/82 94 12/02/22 00:00 75 12/01/22 22:51 36.5 C 78 18 142/83 H 91 O2 Del Method 12/02/22 09:00 Room Air 12/02/22 07:57 Room Air 12/02/22 02:57 Room Air 12/02/22 00:00 12/01/22 22:51 Room Air PG Care Time/CCT Total # of Minutes Spent Total Time Spent with Patient: Total time spent is greater than 50% in coordination of care (as documented) at patient's floor/unit and/or counseling patient: Coding Level of Care Code 19835 SUB INP/OBS CARE 1/25MIN Diagnoses Urinary retention R33.9 Hematuria R31.9
--- NOTE | 2022-12-02 09:30 | Nephrology Progress Note ---
Date of Service December 02, 2022 Assessment & Plan (1) Hyponatremia: Plan: Chronic. 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 Clinical history of decreased solute intake and increased free water. Euvolemic. Possibly slightly hypovolemic. Continue to hold diuretics. Remains asymptomatic. Sodium improving with 3% saline boluses. Oral NaCl added. Additional 150 ml 3% this AM. NaCl 1 gram BID started. Repeat metabolic profile this afternoon. Maintain free water restriction, 1 L/d. Document strict I/O's. Continue to document daily weight. (2) Urinary retention: Plan: Fried draining rm colored urine. Urology following. Non-oliguric. Creatinine remains normal. (3) Hematuria: (4) Longstanding persistent atrial fibrillation: Admission and Anticipated Discharge Date Admission Date: November 30, 2022 Subjective No acute events overnight. No complaints this AM. Appetite is good. Nash feels well. No fluid retention or edema. No chest pain or palpitations. No shortness of breath. Review of Systems Review of Systems: All systems reviewed & are unremarkable except as noted in HPI & below Physical Exam Constitutional: well developed; no acute distress Eyes: + anicteric sclerae; no corneal abnormality ENMT: Mouth: no oral mucosal abnormality and oral mucous membranes not dry Neck: normal visual inspection and trachea midline Respiratory: normal respiratory effort Auscultation: lungs clear to auscultation bilaterally Cardiovascular: Rate/Rhythm: regular rate and + irregularly irregular Heart Sounds: normal S1 and normal S2 Extremities: + edema (legs wrapped) Musculoskeletal: Extremities: no cyanosis and no clubbing Skin: + turgor decreased and + dry skin Neurologic: Motor/Sensory: no tremor and no asterixis Psychiatric: Orientation: alert and oriented x 3 Results & Data Vital Signs (Past 12 Hours) Vital Signs Temp Pulse Pulse Resp BP BP Pulse Ox 12/02/22 09:00 12/02/22 07:57 36.9 C 69 18 122/80 93 12/02/22 02:57 36.4 C L 83 16 127/82 94 12/02/22 00:00 75 12/01/22 22:51 36.5 C 78 18 142/83 H 91 O2 Del Method 12/02/22 09:00 Room Air 12/02/22 07:57 Room Air 12/02/22 02:57 Room Air 12/02/22 00:00 12/01/22 22:51 Room Air Laboratory Results Laboratory Results - last 24 hr 12/01/22 12/01/22 12/01/22 13:00 18:49 18:49 WBC 9.48 RBC 4.00 L Hgb 12.4 L Hct 35.3 L MCV 88.3 MCH 31.0 MCHC 35.1 RDW Std Deviation 43.8 RDW Coeff of [place] 13.4 Plt Count 266 MPV 9.8 Immature Gran % (Auto) Neut % (Auto) Lymph % (Auto) [place] % (Auto) Eos % (Auto) Baso % (Auto) Neut # (Auto) Lymph # (Auto) [place] # (Auto) Eos # (Auto) Baso # (Auto) Immature Gran # (Auto) Sodium 125 L 124 L Potassium Chloride Carbon Dioxide Anion Gap BUN Creatinine Est Cr Clr Drug Dosing Est GFR ( Amer) Est GFR (Non-Af Amer) BUN/Creatinine Ratio Glucose Calcium Phosphorus Albumin 12/02/22 12/02/22 07:39 07:39 WBC 5.62 RBC 3.78 L Hgb 11.8 L Hct 33.4 L MCV 88.4 MCH 31.2 MCHC 35.3 RDW Std Deviation 44.1 RDW Coeff of [place] 13.7 Plt Count 218 MPV 9.9 Immature Gran % (Auto) 0.4 Neut % (Auto) 74.7 Lymph % (Auto) 11.0 [place] % (Auto) 10.5 Eos % (Auto) 2.3 Baso % (Auto) 1.1 Neut # (Auto) 4.20 Lymph # (Auto) 0.62 L [place] # (Auto) 0.59 Eos # (Auto) 0.13 Baso # (Auto) 0.06 Immature Gran # (Auto) 0.02 Sodium 129 L Potassium 4.1 Chloride 99 Carbon Dioxide 24 Anion Gap 6 BUN 20 Creatinine 1.01 Est Cr Clr Drug Dosing 65.6 Est GFR ( Amer) 76.1 Est GFR (Non-Af Amer) 65.6 BUN/Creatinine Ratio 19.8 Glucose 98 Calcium 9.0 Phosphorus 2.6 Albumin 3.7 PG Care Time/CCT Total # of Minutes Spent Total Time Spent with Patient: Total time spent is greater than 50% in coordination of care (as documented) at patient's floor/unit and/or counseling patient: Coding Level of Care Code 02896 SUB INP/OBS CARE MIN Diagnoses Hyponatremia E87.1 Urinary retention R33.9 Hematuria R31.9 Longstanding persistent atrial fibrillation I48.11
[2022-12-02] MEDS: FAMOTIDINE 20 MG in SYRINGE 3 ML IV SCH (15:41)
--- NOTE | 2022-12-02 19:30 | Hospitalist Progress Note ---
Date of Service December 02, 2022 Assessment & Plan (1) Hematuria: Plan: ongoing hematuria and associated acute blood loss anemia With h/o prostate CA, possibly mets to pelvic lymph nodes seen on imaging Could also have second primary bladder CA or radiation cystitis as source of bleeding Wang catheter placed here and continues to be draining rm red urine Urology consulted, CT A/P with mild left hydroureteronephrosis, blood in bladder, and enlarged pelvic and RP lymph nodes Hgb up today from previous at 11.8 UA no infection, Ur cx mixed jose f -continue Wang for 7-10 days -Needs cystoscopy in near future-daughter requesting this be done as an inpatient-will need to check with Urology -Follow CBC, BMP -irrigate Wang by hand if needed for clots (2) Hyponatremia: Plan: Na 119 on admission, prior borderline low levels but Na 138 on labs from [place] in August on daughter's phone Ur Na and Ur Osm consistent with hypovolemia vs SIADH if euvolemic on admission although was on loop diuretic prior to admission. TSH normal and do not suspect adrenal insufficiency Prostate CA does not typically cause brain mets or SIADH as per Oncology consult He was drinking free water to try to clear up his hematuria so perhaps some was from that? Improving now with fluid restriction, hypertonic saline, and starting NaCl tabs--> Na+ up to 133 Appreciate Nephro consult -continue holding home lasix/spironolactone -continue NaCl 1000mg po bid -continue to fluid restrict free water to 1000mL/day -Follow BMP in AM (3) Prostate CA: Plan: Hx of, suspect progression given significant elevated PSA to 27 (per daughter most recent 14 since starting Lupron in August, 1st dose) CTAP in August w/ appearance of metastatic disease to lymph nodes Bone scan noting Small foci of radiotracer uptake within the upper cervical spine and T8 level which could represent metastatic foci. Urology consulted as above Oncology consult appreciated Need to have d/w Oncology with family and patient regarding any future treatment given advanced age, etc.--> follow up in hospital or as outpatient (4) Urinary retention: Plan: suspect 2nd to clots from above urology on consult, appreciate recs/assistance -maintain Wang (5) HTN (hypertension): Plan: BP slightly elevated since holding home lasix, aldactone, lisinopril His home metoprolol 100mg HS has also been reduced to 50mg due to bradycardia in the 30-40s overnight -follow BPs -continue metoprolol succ 50mg hs -restart lisinopril in next 1-2 days (6) Atrial fibrillation: Plan: In Afib on tele here with rates in 30s overnight the first night Not on anticoagulation due to history of bleeding -Lowered dose of metoprolol to 50mg HS -Monitor on tele Plan Dispo-continued stay, PT/OT recommend return home with home health when medically stable-possibly in the next 1-2 days if hematuria clears discussed care with daughter on phone at length on 12/01 and again on 12/02 Admission and Anticipated Discharge Date Admission Date: November 30, 2022 Subjective Continues with hematuria and some small clots in Wang. Moved his bowels several times. Denies CP, SOB, lightheadedness. Tele with Afib, rates 60-70s, metoprolol was held again last evening Physical Exam Constitutional: WD/WN, vitals as above Neck: trachea midline, no thyromegaly Respiratory: normal respiratory effort, lungs clear to auscultation Cardiovascular: Rate/Rhythm: regular rate and + irregularly irregular Chest (Breasts): Chest: normal inspection of chest Gastrointestinal (Abdomen): normal bowel sounds, soft, nontender, no hepatosplenomegaly Musculoskeletal: Extremities: extremities normal to inspection; no cyanosis and no clubbing Skin: bilateral legs with chronic venous stasis changes, erythema, some weeping open superficial pin point lesions right leg Neurologic: moves all extremities and awake; no focal motor deficits Psychiatric: A+Ox3, euthymic affect Genitourinary: Wang with rm red urine in tube Results & Data Results & Data Vital Signs (Past 12 Hours) Vital Signs Temp Pulse Pulse Resp BP BP Pulse Ox 12/02/22 15:51 73 12/02/22 14:00 12/02/22 14:48 36.7 C 76 18 150/84 H 96 12/02/22 12:20 77 12/02/22 12:07 37.0 C 70 20 128/84 93 12/02/22 09:00 12/02/22 07:57 36.9 C 69 18 122/80 93 Pulse Ox O2 Del Method O2 Del Method 12/02/22 15:51 12/02/22 14:00 96 Room Air 12/02/22 14:48 Room Air 12/02/22 12:20 12/02/22 12:07 Room Air 12/02/22 09:00 Room Air 12/02/22 07:57 Room Air Laboratory Results CBC, BMP, repeat sodium level reviewed Ur cx mixed jose f PG Care Time/CCT Total # of Minutes Spent Total Time Spent with Patient: Total time spent is greater than 50% in coordination of care (as documented) at patient's floor/unit and/or counseling patient: Coding Level of Care Code 13535 SUB INP/OBS CARE 2/35MIN Diagnoses Hematuria R31.9 Hyponatremia E87.1 Prostate CA C61 Urinary retention R33.9 HTN (hypertension) I10 Atrial fibrillation I48.91
[2022-12-02] MEDS ORDERED: POLYETHYLENE (MIRALAX) 17 GM PACK PO PRN (19:46)
[2022-12-02] MEDS: METOPROLOL SUCC 50MG EXT REL TAB PO SCH (20:23)
[2022-12-03 08:21] LABS: Basophils # (auto) 0.07 K/uL (0.00-0.20); Eosinophils # (auto) 0.18 K/uL (0.00-0.50); Eosinophils % (auto) 2.5 %; Hematocrit (blood only) 35.8 % (42.0-52.0); Hemoglobin 12.1 g/dl (14.0-18.0); Immature Granulocytes # (auto) 0.05 K/uL (0.01-0.20); Immature Granulocytes % (auto) 0.7 %; Lymphocytes # (auto) 0.85 K/uL (1.20-3.40); Lymphocytes % (auto) 11.7 %; Mean Corpuscular Hemoglobin 30.8 pg (25.0-34.0); Mean Corpuscular Hgb Conc 33.8 g/dL (32.0-36.0); Mean Corpuscular Volume 91.1 fL (80.0-100.0); Mean Platelet Volume 9.9 fL (9.4-12.4); Monocytes # (auto) 0.66 K/uL (0.11-0.59); Monocytes % (auto) 9.1 %; Neutrophils # (auto) 5.46 K/uL (1.40-6.50); Platelet Count 261 K/uL (130-400); RDW Coefficient of Variation 13.5 % (11.5-14.5); RDW Standard Deviation 45.2 fL (36.4-46.3); Red Blood Count 3.93 M/uL (4.70-6.10); White Blood Count 7.27 K/ul (4.8-10.8)
[2022-12-03] MEDS: SODIUM CHLORIDE 1 GM TABLET PO SCH ×2 (08:23→17:38)
[2022-12-03 08:42] LABS: Albumin Level 3.9 gm/dl (3.4-5.0); BUN Creatinine Ratio 24.5 (10-20); Calcium 9.4 mg/dl (8.6-10.3); Creatinine Clr Calc Pharmacy 65.6 ml/min; Est GFR (African American) 75.2 ml/min; Est GFR (Non-African American) 64.9 ml/min; Phosphorus 2.5 mg/dl (2.5-4.9); Potassium 4.5 mmol/L (3.5-5.1)
--- NOTE | 2022-12-03 09:27 | Nephrology Progress Note ---
Date of Service December 03, 2022 Assessment & Plan (1) Hyponatremia: Plan: Chronic. 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 Continue oral NaCl as tolerated. Euvolemic. Continue to hold diuretics. Remains asymptomatic. Sodium stable at 133 mmol/L. Oral NaCl increased from 1 g BID to 2 g BID this AM. Repeat serum sodium this afternoon. Continue free water restriction. Maintain free water restriction, 1 L/d. Document strict I/O's while inpatient and daily weight. Assuming serum sodium continues to remain stable, there are no additional recommendations from nephrology at this time. Please arrange close outpatient follow up with me in the nephrology clinic at discharge. Otherwise we will follow peripherally and request that you contact the water resources business segment leader controls project engineer this weekend with questions or concerns. (2) Urinary retention: Plan: Fried draining. Urology following. Non-oliguric. Creatinine remains normal. (3) Hematuria: (4) Longstanding persistent atrial fibrillation: Admission and Anticipated Discharge Date Admission Date: November 30, 2022 Subjective No acute events overnight. Fried continues to drain rm colored urine. No clots reports. Nash feels well. He denies pain. Appetite is good. No fluid retention or edema. No lightheadedness, dizziness, syncope or presyncope. Review of Systems Review of Systems: All systems reviewed & are unremarkable except as noted in HPI & below Physical Exam Constitutional: well developed; no acute distress Eyes: + anicteric sclerae; no corneal abnormality ENMT: Mouth: no oral mucosal abnormality and oral mucous membranes not dry Neck: normal visual inspection and trachea midline Respiratory: normal respiratory effort Auscultation: lungs clear to auscultation bilaterally Cardiovascular: Rate/Rhythm: regular rate and + irregularly irregular Heart Sounds: normal S1 and normal S2 Extremities: + edema (legs wrapped) Musculoskeletal: Extremities: no cyanosis and no clubbing Skin: normal turgor, + turgor decreased and + dry skin; no lesions Neurologic: Motor/Sensory: no tremor and no asterixis Psychiatric: Orientation: alert and oriented x 3 Results & Data Vital Signs (Past 12 Hours) Vital Signs Temp Pulse Resp BP Pulse Ox O2 Del Method 12/03/22 07:45 36.3 C L 90 16 146/83 H 95 Room Air 12/03/22 02:30 36.8 C 80 18 134/81 92 Room Air 12/02/22 22:18 36.7 C 79 18 135/94 95 Room Air Laboratory Results Laboratory Results - last 24 hr 12/02/22 12/03/22 12/03/22 13:02 07:39 07:39 WBC 7.27 RBC 3.93 L Hgb 12.1 L Hct 35.8 L MCV 91.1 MCH 30.8 MCHC 33.8 RDW Std Deviation 45.2 RDW Coeff of [place] 13.5 Plt Count 261 MPV 9.9 Immature Gran % (Auto) 0.7 Neut % (Auto) 75.0 Lymph % (Auto) 11.7 [place] % (Auto) 9.1 Eos % (Auto) 2.5 Baso % (Auto) 1.0 Neut # (Auto) 5.46 Lymph # (Auto) 0.85 L [place] # (Auto) 0.66 H Eos # (Auto) 0.18 Baso # (Auto) 0.07 Immature Gran # (Auto) 0.05 Sodium 133 L 133 L Potassium 4.5 Chloride 102 Carbon Dioxide 25 Anion Gap 6 BUN 25 H Creatinine 1.02 Est Cr Clr Drug Dosing 65.6 Est GFR ( Amer) 75.2 Est GFR (Non-Af Amer) 64.9 BUN/Creatinine Ratio 24.5 H Glucose 106 H Calcium 9.4 Phosphorus 2.5 Albumin 3.9 PG Care Time/CCT Total # of Minutes Spent Total Time Spent with Patient: Total time spent is greater than 50% in coordination of care (as documented) at patient's floor/unit and/or counseling patient: Coding Level of Care Code 52362 SUB INP/OBS CARE 3/50MIN Diagnoses Hyponatremia E87.1 Urinary retention R33.9 Hematuria R31.9 Longstanding persistent atrial fibrillation I48.11
[2022-12-03] MEDS ORDERED: SODIUM CHLORIDE 1 GM TABLET PO STA (09:28)
--- NOTE | 2022-12-03 10:40 | Urology Progress Note ---
Date of Service December 03, 2022 Assessment & Plan (1) Urinary retention: (2) Hematuria: Plan: 87 yo M with hx of prostate cancer s/p prostatectomy and radiation therapy admitted for hematuria, urinary retention and hyponatremia. Afebrile and hemodynamically stable Labs reviewedcreatinine 1.02, WBC 7.27, hemoglobin 12.1, Na 133 - continue to trend labs Urine culture showed 3 types of organisms, all moderate counts Fried patent and rm/maroon urine, no manual irrigation needed overnight Okay to gently hand irrigate catheter prn clots, obstruction or suprapubic discomfort If catheter becomes obstructed, then recommend upsize catheter Maintain catheter for 7-10 days in the setting of urinary retention Ongoing hematuria possibly due to radiation cystitis, bladder malignancy vs other Recommend cystoscopy (nonurgent) for further evaluation of hematuria - can consider while inpatient when urine improves if he remains inpatient Continue supportive care and medical management per hospital medicine Case discussed with Dr. Peterson will follow Admission and Anticipated Discharge Date Admission Date: November 30, 2022 Subjective Patient seen and examined at bedside this morning, chart reviewed Subjectively doing well, no acute issues overnight Fried patent and draining rm/maroon urine No manual irrigation required overnight Denies suprapubic or abdominal pain Reports BM this morning Denies nausea, vomiting, fever or chills Review of Systems Constitutional: as per Subjective / HPI Gastrointestinal: as per Subjective / HPI Genitourinary: + as per Subjective / HPI Physical Exam Physical Exam: General: well-appearing, no acute distress HEENT: Normocephalic Pulmonary: Nonlabored respirations Abdomen: Nondistended, soft Extremities: Moves all 4 spontaneously Neuro: No gross deficits Psych: alert and oriented, normal mood : Fried patent and draining rm/maroon urine, no clots noted Results & Data Vital Signs (Past 12 Hours) Vital Signs Temp Pulse Resp BP Pulse Ox O2 Del Method 12/03/22 07:45 36.3 C L 90 16 146/83 H 95 Room Air 12/03/22 02:30 36.8 C 80 18 134/81 92 Room Air PG Care Time/CCT Total # of Minutes Spent Total Time Spent with Patient: Total time spent is greater than 50% in coordination of care (as documented) at patient's floor/unit and/or counseling patient: Coding Level of Care Code 47686 SUB INP/OBS CARE 04/28MIN Diagnoses Urinary retention R33.9 Hematuria R31.9
--- NOTE | 2022-12-03 13:47 | Hospitalist Progress Note ---
Date of Service December 03, 2022 Assessment & Plan (1) Hematuria: Plan: ongoing hematuria and associated acute blood loss anemia With h/o prostate CA, possibly mets to pelvic lymph nodes seen on imaging Could also have second primary bladder CA or radiation cystitis as source of bleeding Wang catheter placed here and continues to be draining rm red urine Urology consulted, CT A/P with mild left hydroureteronephrosis, blood in bladder, and enlarged pelvic and RP lymph nodes Hgb up today from previous at 12.1 UA no infection, Ur cx mixed jose f -continue Wang for 7-10 days -Needs cystoscopy in near future spoke to urology who stated that they will consider doing the cystoscopy prior to discharge if urine begins to clear -Follow CBC, BMP -irrigate Wang by hand if needed for clots (2) Hyponatremia: Plan: Na 119 on admission, prior borderline low levels but Na 138 on labs from [place] in August on daughter's phone nephrology on board Sodium improved to 133 and has been stable for the last 2 days Since patient is starting to get edematous, I spoke to nephrology Who agreed with resuming Lasix and Aldactone today. Ur Na and Ur Osm consistent with hypovolemia vs SIADH if euvolemic on admission although was on loop diuretic prior to admission. TSH normal and do not suspect adrenal insufficiency Prostate CA does not typically cause brain mets or SIADH as per Oncology consult He was drinking free water to try to clear up his hematuria so perhaps some was from that? Improving now with fluid restriction, hypertonic saline, and starting NaCl tabs--> Na+ up to 133 Appreciate Nephro consult -continue NaCl 1000mg po bid -continue to fluid restrict free water to 1000mL/day -Follow BMP in AM (3) Prostate CA: Plan: Hx of, suspect progression given significant elevated PSA to 27 (per daughter most recent 14 since starting Lupron in August, 1st dose) CTAP in August w/ appearance of metastatic disease to lymph nodes Bone scan noting Small foci of radiotracer uptake within the upper cervical spine and T8 level which could represent metastatic foci. Urology consulted as above Oncology consult appreciated Need to have d/w Oncology with family and patient regarding any future treatment given advanced age, etc.--> follow up in hospital or as outpatient (4) Urinary retention: Plan: suspect 2nd to clots from above urology on consult, appreciate recs/assistance -maintain Wang (5) HTN (hypertension): Plan: BP slightly elevated since holding home lasix, aldactone, lisinopril His home metoprolol 100mg HS has also been reduced to 50mg due to bradycardia in the 30-40s overnight Currently he is on metoprolol 25 mg Blood pressure slightly elevated thus given extra 25 mg Resume Lasix and Aldactone Resume lisinopril tomorrow monitor blood pressure (6) Atrial fibrillation: Plan: In Afib on tele here with rates in 30s overnight the first night Not on anticoagulation due to history of bleeding -Lowered dose of metoprolol to 25mg HS. But given extra 25 mg today -Monitor on tele Plan Dispo-continued stay, PT/OT recommend return home with home health when medically stable discussed care with daughter on phone at length today 12/03 Admission and Anticipated Discharge Date Admission Date: November 30, 2022 Subjective patient says that his legs are starting to swell up, particularly the right leg. He says that his right leg always swells up first. He denies any chest pain or shortness of Review of Systems Review of Systems: All systems reviewed & are unremarkable except as noted in Subjective Physical Exam Physical Exam: General: Awake, conversant Heart: S1, S2/regular rate and rhythm, no murmur rubs or gallops Lungs: Clear to auscultation bilaterally. Normal effort Abdomen: Soft/nontender/nondistended. No hepatosplenomegaly Extremities: No clubbing/cyanosis. 1+ pitting edema bilaterally, right more than left Behavior: Appropriate, cooperative Results & Data Results & Data Vital Signs (Past 12 Hours) Vital Signs Temp Pulse Resp BP Pulse Ox O2 Del Method 12/03/22 11:32 36.5 C 92 H 16 146/94 H 95 Room Air 12/03/22 07:45 36.3 C L 90 16 146/83 H 95 Room Air 12/03/22 02:30 36.8 C 80 18 134/81 92 Room Air PG Care Time/CCT Total # of Minutes Spent Total Time Spent with Patient: Total time spent is greater than 50% in coordination of care (as documented) at patient's floor/unit and/or counseling patient: Coding Level of Care Code 03127 SUB INP/OBS CARE 2/35MIN Diagnoses Hematuria R31.9 Hyponatremia E87.1 Prostate CA C61 Urinary retention R33.9 HTN (hypertension) I10 Atrial fibrillation I48.91
[2022-12-03] MEDS: FUROSEMIDE 20 MG TAB PO SCH (15:21)
[2022-12-03] MEDS: SPIRONOLACTONE 25 MG TAB PO SCH (15:21)
[2022-12-03] MEDS: METOPROLOL SUCC 50MG EXT REL TAB PO SCH (20:35)
--- NOTE | 2022-12-04 07:30 | Electrocardiogram Report ---
Test Reason : Blood Pressure : / mmHG Vent. Rate : 067 BPM Atrial Rate : 416 BPM P-R Int : 000 ms QRS Dur : 100 ms QT Int : 432 ms P-R-T Axes : 000 006 059 degrees QTc Int : 456 ms Atrial fibrillation Low voltage QRS Nonspecific ST abnormality Abnormal ECG When compared with ECG of 22-MAR-2020 12:03, Minimal criteria for Anterior infarct are no longer Present ST no longer depressed in Lateral leads Nonspecific T wave abnormality, improved in Anterolateral leads Confirmed by Jensen Lugo ([id number]) on 12/04/2022 7:29:26 AM Referred By: REFERRED SELF Confirmed By:Jensen Lugo
[2022-12-04 08:31] LABS: Albumin Level 3.7 gm/dl (3.4-5.0); Calcium 9.1 mg/dl (8.6-10.3); Potassium 4.6 mmol/L (3.5-5.1)
[2022-12-04] MEDS: FUROSEMIDE 20 MG TAB PO SCH (08:34)
[2022-12-04] MEDS: SPIRONOLACTONE 25 MG TAB PO SCH (08:34)
[2022-12-04] MEDS: lisinopril 40 MG TAB PO SCH (08:34)
[2022-12-04] MEDS: SODIUM CHLORIDE 1 GM TABLET PO SCH ×2 (08:34→17:20)
[2022-12-04 08:37] LABS: Creatinine Clr Calc Pharmacy 64.1 ml/min; Est GFR (African American) 73.4 ml/min; Est GFR (Non-African American) 63.4 ml/min; Phosphorus 3.3 mg/dl (2.5-4.9)
--- NOTE | 2022-12-04 08:49 | Nephrology Progress Note ---
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 Continue to hold diuretics * Will obtain PRP, Uosm in am (2) Urinary retention: Plan: * Remains nonoliguric w/ Fried in place (3) Hematuria: Plan: * Urology is planning cystoscopy once hematuria resolves (4) Longstanding persistent atrial fibrillation: Admission and Anticipated Discharge Date Admission Date: November 30, 2022 Subjective Mr. Singletary was evaluated in his hospital room this morning. He c/o hematuria but denies fever or flank discomfort. He is tolerating oral NaCl supplement without GI upset Review of Systems Constitutional: no fever Eyes: no problem reported Ear, Nose, Mouth, Throat: no problem reported Respiratory: no cough and no dyspnea Cardiovascular: no chest pain Gastrointestinal: no abdominal pain, no nausea, no vomiting and no diarrhea/loose stools Physical Exam Constitutional: not in distress Eyes: PERRL, conjunctivae normal, anicteric sclerae ENMT: external ear and nose normal, oropharynx normal Neck: trachea midline, no thyromegaly Respiratory: normal respiratory effort, lungs clear to auscultation Cardiovascular: RRR, no murmur, no edema Gastrointestinal (Abdomen): normal bowel sounds, soft, nontender, no hepatosplenomegaly Genitourinary: Fried catheter draining grossly bloody urine Results & Data Vital Signs (Past 12 Hours) Vital Signs Temp Pulse Resp BP Pulse Ox O2 Del Method 12/04/22 08:00 36.9 C 78 16 137/86 97 Room Air 12/04/22 02:52 36.5 C 87 16 131/76 95 Room Air 12/03/22 23:13 36.5 C 79 18 142/86 H 96 Room Air Laboratory Results Laboratory Tests 12/03/22 12/04/22 07:39 06:55 WBC 7.27 Hgb 12.1 L Hct 35.8 L Plt Count 261 Sodium 133 L Potassium 4.6 Chloride 101 Carbon Dioxide 28 BUN 25 H Creatinine 1.04 Glucose 97 Calcium 9.1 Phosphorus 3.3 Albumin 3.7 PG Care Time/CCT Total # of Minutes Spent Total Time Spent with Patient: Total time spent is greater than 50% in coordination of care (as documented) at patient's floor/unit and/or counseling patient: Coding Level of Care Code 39508 SUB INP/OBS CARE 50MIN Diagnoses Hyponatremia E87.1 Urinary retention R33.9 Hematuria R31.9 Longstanding persistent atrial fibrillation I48.11
[2022-12-04 09:51] LABS: Hematocrit (blood only) 34.9 % (42.0-52.0); Hemoglobin 11.9 g/dl (14.0-18.0); Mean Corpuscular Hemoglobin 31.4 pg (25.0-34.0); Mean Corpuscular Hgb Conc 34.1 g/dL (32.0-36.0); Mean Corpuscular Volume 92.1 fL (80.0-100.0); Mean Platelet Volume 10.2 fL (9.4-12.4); Platelet Count 228 K/uL (130-400); RDW Coefficient of Variation 13.6 % (11.5-14.5); RDW Standard Deviation 46.1 fL (36.4-46.3); Red Blood Count 3.79 M/uL (4.70-6.10)
--- NOTE | 2022-12-04 13:48 | Hospitalist Progress Note ---
Date of Service December 04, 2022 Assessment & Plan (1) Hematuria: Plan: ongoing hematuria and associated acute blood loss anemia With h/o prostate CA, possibly mets to pelvic lymph nodes seen on imaging Could also have second primary bladder CA or radiation cystitis as source of bleeding Wang catheter placed here and continues to be draining rm red urine Urology consulted, CT A/P with mild left hydroureteronephrosis, blood in bladder, and enlarged pelvic and RP lymph nodes Hgb Stable UA no infection, Ur cx mixed jose f -continue Wang for 7-10 days -Needs cystoscopy in near future spoke to urology who stated that they will consider doing the cystoscopy prior to discharge if urine begins to clear -Follow CBC, BMP -irrigate Wang by hand if needed for clots (2) Hyponatremia: Plan: Na 119 on admission, prior borderline low levels but Na 138 on labs from [place] in August on daughter's phone nephrology on board Sodium improved to 133 and has been stable for the last 2 days Since patient is starting to get edematous, I spoke to nephrology Who agreed with resuming Lasix and Aldactone. Lasix and Aldactone were resumed on 12/03. Sodium stable on them. Ur Na and Ur Osm consistent with hypovolemia vs SIADH if euvolemic on admission although was on loop diuretic prior to admission. TSH normal and do not suspect adrenal insufficiency Prostate CA does not typically cause brain mets or SIADH as per Oncology consult He was drinking free water to try to clear up his hematuria so perhaps some was from that? Appreciate Nephro consult -continue NaCl 1000mg po bid -continue to fluid restrict free water to 1000mL/day -Follow BMP in AM Nephrology on board (3) Prostate CA: Plan: Hx of, suspect progression given significant elevated PSA to 27 (per daughter most recent 14 since starting Lupron in August, 1st dose) CTAP in August w/ appearance of metastatic disease to lymph nodes Bone scan noting Small foci of radiotracer uptake within the upper cervical spine and T8 level which could represent metastatic foci. Urology consulted as above Oncology consult appreciated Need to have d/w Oncology with family and patient regarding any future treatment given advanced age, etc.--> follow up in hospital or as outpatient (4) Urinary retention: Plan: suspect 2nd to clots from above urology on consult, appreciate recs/assistance -maintain Wang (5) HTN (hypertension): Plan: BP slightly elevated since holding home lasix, aldactone, lisinopril His home metoprolol 100mg HS has also been reduced to 50mg due to bradycardia in the 30-40s overnight Currently he is on metoprolol 25 mg Blood pressure slightly elevated thus given extra 25 mg Resume Lasix and Aldactone Resume lisinopril tomorrow monitor blood pressure (6) Atrial fibrillation: Plan: In Afib on tele here with rates in 30s overnight the first night Not on anticoagulation due to history of bleeding -Lowered dose of metoprolol to 25mg HS. But given extra 25 mg today -Monitor on tele Plan Dispo-continued stay, PT/OT recommend return home with home health when medically stable discussed care with daughter on phone at length 12/03 Admission and Anticipated Discharge Date Admission Date: November 30, 2022 Subjective patient feels well overall. Says that his leg swelling is better now that he has been started back on his Lasix and Aldactone. Review of Systems Review of Systems: All systems reviewed & are unremarkable except as noted in Subjective Physical Exam Physical Exam: General: Awake, conversant Heart: S1, S2/regular rate and rhythm, no murmur rubs or gallops Lungs: Clear to auscultation bilaterally. Normal effort Abdomen: Soft/nontender/nondistended. No hepatosplenomegaly Extremities: No clubbing/cyanosis. 1+ pitting edema bilaterally Behavior: Appropriate, cooperative Results & Data Results & Data Vital Signs (Past 12 Hours) Vital Signs Temp Pulse Pulse Resp BP BP Pulse Ox 12/04/22 12:26 36.6 C 82 18 150/93 H 98 12/04/22 10:12 12/04/22 10:12 66 12/04/22 08:00 36.9 C 78 16 137/86 97 12/04/22 02:52 36.5 C 87 16 131/76 95 O2 Del Method 12/04/22 12:26 Room Air 12/04/22 10:12 Room Air 12/04/22 10:12 12/04/22 08:00 Room Air 12/04/22 02:52 Room Air PG Care Time/CCT Total # of Minutes Spent Total Time Spent with Patient: Total time spent is greater than 50% in coordination of care (as documented) at patient's floor/unit and/or counseling patient: Coding Level of Care Code 90903 SUB INP/OBS CARE MIN Diagnoses Hematuria R31.9 Hyponatremia E87.1 Prostate CA C61 Urinary retention R33.9 HTN (hypertension) I10 Atrial fibrillation I48.91
[2022-12-04] MEDS: ACETAMINOPHEN 325 MG TAB PO PRN (20:14)
[2022-12-04] MEDS: METOPROLOL SUCC 50MG EXT REL TAB PO SCH (20:14)
[2022-12-05 07:19] LABS: Hematocrit (blood only) 32.5 % (42.0-52.0); Hemoglobin 11.1 g/dl (14.0-18.0); Mean Corpuscular Hemoglobin 30.7 pg (25.0-34.0); Mean Corpuscular Hgb Conc 34.2 g/dL (32.0-36.0); Mean Corpuscular Volume 89.8 fL (80.0-100.0); Mean Platelet Volume 9.8 fL (9.4-12.4); Platelet Count 214 K/uL (130-400); RDW Coefficient of Variation 13.4 % (11.5-14.5); RDW Standard Deviation 44.1 fL (36.4-46.3); Red Blood Count 3.62 M/uL (4.70-6.10); White Blood Count 5.73 K/ul (4.8-10.8)
[2022-12-05 08:10] LABS: BUN Creatinine Ratio 28.1 (10-20); Calcium 8.8 mg/dl (8.6-10.3); Creatinine Clr Calc Pharmacy 74.7 ml/min; Est GFR (African American) 87.9 ml/min; Est GFR (Non-African American) 75.8 ml/min; Potassium 4.3 mmol/L (3.5-5.1)
[2022-12-05] MEDS: SODIUM CHLORIDE 1 GM TABLET PO SCH ×2 (08:11→17:31)
[2022-12-05] MEDS: SPIRONOLACTONE 25 MG TAB PO SCH (08:11)
[2022-12-05] MEDS: FUROSEMIDE 20 MG TAB PO SCH (08:11)
[2022-12-05] MEDS: lisinopril 40 MG TAB PO SCH (08:11)
--- NOTE | 2022-12-05 08:30 | Nephrology Progress Note ---
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 Singletary was evaluated in his hospital room this morning. He has continued gross hematuria but denies fever or flank discomfort. He is tolerating oral NaCl supplement without GI upset Review of Systems Constitutional: no fever Eyes: no problem reported Ear, Nose, Mouth, Throat: no problem reported Respiratory: no cough and no dyspnea Cardiovascular: no chest pain Gastrointestinal: no abdominal pain, no nausea, no vomiting and no diarrhea/loose stools Physical Exam Constitutional: not in distress Eyes: PERRL, conjunctivae normal, anicteric sclerae ENMT: external ear and nose normal, oropharynx normal Neck: trachea midline, no thyromegaly Respiratory: normal respiratory effort, lungs clear to auscultation Cardiovascular: RRR, no murmur, no edema Gastrointestinal (Abdomen): normal bowel sounds, soft, nontender, no hepatosplenomegaly Results & Data Vital Signs (Past 12 Hours) Vital Signs Temp Pulse Pulse Resp BP BP Pulse Ox 12/05/22 07:45 36.4 C L 93 H 18 130/89 97 12/05/22 06:54 80 12/05/22 03:50 36.9 C 67 12 115/72 96 12/05/22 01:02 75 12/04/22 22:31 36.9 C 77 18 123/65 95 O2 Del Method 12/05/22 07:45 Room Air 12/05/22 06:54 12/05/22 03:50 Room Air 12/05/22 01:02 12/04/22 22:31 Room Air Laboratory Results Laboratory Tests 12/05/22 12/05/22 05:52 05:52 WBC 5.73 Hgb 11.1 L Hct 32.5 L Plt Count 214 Sodium 134 L Potassium 4.3 Chloride 102 Carbon Dioxide 28 BUN 25 H Creatinine 0.89 Glucose 94 PG Care Time/CCT Total # of Minutes Spent Total Time Spent with Patient: Total time spent is greater than 50% in coordination of care (as documented) at patient's floor/unit and/or counseling patient: Coding Level of Care Code 97077 SUB INP/OBS CARE 3/50MIN Diagnoses Hyponatremia E87.1 Urinary retention R33.9 Hematuria R31.9 Longstanding persistent atrial fibrillation I48.11
--- NOTE | 2022-12-05 13:48 | Hospitalist Progress Note ---
Date of Service December 05, 2022 Assessment & Plan (1) Hematuria: Plan: ongoing hematuria and associated acute blood loss anemia With h/o prostate CA, possibly mets to pelvic lymph nodes seen on imaging Could also have second primary bladder CA or radiation cystitis as source of bleeding Wang catheter placed here. Urine seems to be clearing. Urology consulted, CT A/P with mild left hydroureteronephrosis, blood in bladder, and enlarged pelvic and RP lymph nodes Hgb Stable UA no infection, Ur cx mixed jose f -continue Wang for 7-10 days -Needs cystoscopy in near future spoke to urology who stated that they will consider doing the cystoscopy prior to discharge if urine begins to clear. Awaiting further input from urology -Follow CBC, BMP -irrigate Wang by hand if needed for clots (2) Hyponatremia: Plan: Na 119 on admission, prior borderline low levels but Na 138 on labs from [place] in August on daughter's phone nephrology on board Sodium improved to 134 and has been stable for the last 3 days Nephrology agrees with continuing Lasix and Aldactone. Continue sodium chloride 1000 mg p.o. twice daily Ur Na and Ur Osm consistent with hypovolemia vs SIADH if euvolemic on admission although was on loop diuretic prior to admission. TSH normal and do not suspect adrenal insufficiency Prostate CA does not typically cause brain mets or SIADH as per Oncology consult He was drinking free water to try to clear up his hematuria so perhaps some was from that? Appreciate Nephro consult -continue NaCl 1000mg po bid -continue to fluid restrict free water to 1000mL/day -Follow BMP in AM Nephrology on board (3) Prostate CA: Plan: Hx of, suspect progression given significant elevated PSA to 27 (per daughter mo st recent 14 since starting Lupron in August, 1st dose) CTAP in August w/ appearance of metastatic disease to lymph nodes Bone scan noting Small foci of radiotracer uptake within the upper cervical spine and T8 level which could represent metastatic foci. Urology consulted as above Oncology consult appreciated Need to have d/w Oncology with family and patient regarding any future treatment given advanced age, etc.--> follow up in hospital or as outpatient (4) Urinary retention: Plan: suspect 2nd to clots from above urology on consult, appreciate recs/assistance -maintain Wang (5) HTN (hypertension): Plan: BP slightly elevated since holding home lasix, aldactone, lisinopril His home metoprolol 100mg HS has also been reduced to 50mg due to bradycardia in the 30-40s overnight Blood pressures currently stable on current regimen Resume Lasix and Aldactone Lisinopril on hold monitor blood pressure (6) Atrial fibrillation: Plan: In Afib on tele here with rates in 30s overnight the first night Not on anticoagulation due to history of bleeding Rate controlled at current dose of metoprolol -Monitor on tele Plan Dispo-continued stay, PT/OT recommend return home with home health when medically stable discussed care with daughter on phone at length 12/03 Admission and Anticipated Discharge Date Admission Date: November 30, 2022 Subjective Patient feels well overall. Leg swelling is coming down after Lasix and Aldactone resumed. His urine is starting to clear up. Still red but paler today today Review of Systems Review of Systems: All systems reviewed & are unremarkable except as noted in Subjective Physical Exam Physical Exam: General: Awake, conversant Heart: S1, S2/regular rate and rhythm, no murmur rubs or gallops Lungs: Clear to auscultation bilaterally. Normal effort Abdomen: Soft/nontender/nondistended. No hepatosplenomegaly Extremities: No clubbing/cyanosis. 1+ pitting edema bilaterally Behavior: Appropriate, cooperative Results & Data Results & Data Vital Signs (Past 12 Hours) Vital Signs Temp Pulse Pulse Resp BP BP Pulse Ox 12/05/22 11:15 36.8 C 83 18 102/70 96 12/05/22 08:54 12/05/22 07:45 36.4 C L 93 H 18 130/89 97 12/05/22 06:54 80 12/05/22 03:50 36.9 C 67 12 115/72 96 O2 Del Method 12/05/22 11:15 Room Air 12/05/22 08:54 Room Air 12/05/22 07:45 Room Air 12/05/22 06:54 12/05/22 03:50 Room Air Laboratory Results Abnormal lab results 12/05/22 12/05/22 Range/Units 05:52 05:52 RBC 3.62 L (4.70-6.10) M/uL Hgb 11.1 L (14.0-18.0) g/dl Hct 32.5 L (42.0-52.0) % Sodium 134 L (136-145) mmol/L BUN 25 H (6-23) mg/dl BUN/Creatinine Ratio 28.1 H (10-20) PG Care Time/CCT Total # of Minutes Spent Total Time Spent with Patient: Total time spent is greater than 50% in coordination of care (as documented) at patient's floor/unit and/or counseling patient: Coding Level of Care Code 75145 SUB INP/OBS CARE 2/35MIN Diagnoses Hematuria R31.9 Hyponatremia E87.1 Prostate CA C61 Urinary retention R33.9 HTN (hypertension) I10 Atrial fibrillation I48.91
--- NOTE | 2022-12-05 13:55 | Urology Progress Note ---
Date of Service December 05, 2022 Assessment & Plan (1) Urinary retention: (2) Hematuria: Plan With patient with significant history of prostate cancer with metastatic disease. Had come in with hematuria and clot retention. Patient was dealing with acute urinary retention. Continues to have mild hypotensive issues with current blood pressure 102/70. Heart rate is at the high side of normal. Is afebrile right now. Patient had possible hydronephrosis seen on imaging. Likely due to chronic obstruction issues. Had previously discussed possible causes of the bleeding. Discussed options moving forward. Patient had already had diet today. Discussed possible plan for cystoscopy and assessment. Discussed different options including concerns and issues. We will plan to monitor overnight. If patient's issues continue and if there is still concern for active bleeding would likely need a urgent assessment/intervention. Possibly move forward with cystoscopy with clot evacuation and possible biopsy/fulguration. We will plan for n.p.o. at midnight. We will plan to continue to monitor Admission and Anticipated Discharge Date Admission Date: November 30, 2022 Subjective Patient admitted with history of prostate cancer with metastatic disease. Gross hematuria urinary retention and hydronephrosis. Patient is afebrile. Has been undergoing supportive care and hydration therapy with oral medications, IV medications, IV fluids, and oral intake. Has not had a major or considerable increase in pain or major issues. Has not developed severe vomiting or other issues. Has not experienced fever or chills. Has been tolerating oral medications. Is tolerating fluids. Has noticed some frequency and urgency. Does continue to have occasional blood. Has concerned about the ongoing issue with hydronephrosis. Has not had severe pain in the back and flank. Does have occasional burning and irritation. No severe episodes or major changes. Review of Systems Review of Systems: All systems reviewed & are unremarkable except as noted in HPI & below Physical Exam Physical Exam: General: Alert in no acute distress. Obese HEENT: Normocephalic Atraumatic. Inspection normal. Cranial Nerves 2-12 Grossly intact. Normal inspection of face. Normal inspection of neck. Psychologic: Normal affect. Respiratory: Nonlabored. No use of accessory muscles. No tachypnea or dyspnea. Cardiovascular: No tachycardia Skin: [place] and Dry. No rashes or visible lesions. Extremities/Lymphatics: Severe chronic edema/edematous changes with chronic wound Abdomen: Soft Non-distended. No rebound or guarding. Results & Data Vital Signs (Past 12 Hours) Vital Signs Temp Pulse Pulse Resp BP BP Pulse Ox 12/05/22 11:15 36.8 C 83 18 102/70 96 12/05/22 08:54 12/05/22 07:45 36.4 C L 93 H 18 130/89 97 12/05/22 06:54 80 12/05/22 03:50 36.9 C 67 12 115/72 96 O2 Del Method 12/05/22 11:15 Room Air 12/05/22 08:54 Room Air 12/05/22 07:45 Room Air 12/05/22 06:54 12/05/22 03:50 Room Air PG Care Time/CCT Total # of Minutes Spent Total Time Spent with Patient: Total time spent is greater than 50% in coordination of care (as documented) at patient's floor/unit and/or counseling patient: Coding Level of Care Code 67041 SUB INP/OBS CARE 3/50MIN Diagnoses Urinary retention R33.9 Hematuria R31.9
[2022-12-05] MEDS: METOPROLOL SUCC 50MG EXT REL TAB PO SCH (20:41)
[2022-12-06 06:53] LABS: Hematocrit (blood only) 33.4 % (42.0-52.0); Hemoglobin 11.4 g/dl (14.0-18.0); Mean Corpuscular Hemoglobin 30.8 pg (25.0-34.0); Mean Corpuscular Hgb Conc 34.1 g/dL (32.0-36.0); Mean Corpuscular Volume 90.3 fL (80.0-100.0); Mean Platelet Volume 9.6 fL (9.4-12.4); Platelet Count 244 K/uL (130-400); RDW Coefficient of Variation 13.3 % (11.5-14.5); RDW Standard Deviation 44.1 fL (36.4-46.3)
[2022-12-06 07:15] LABS: BUN Creatinine Ratio 27.9 (10-20); Calcium 8.8 mg/dl (8.6-10.3); Creatinine Clr Calc Pharmacy 59.8 ml/min; Est GFR (African American) 67.9 ml/min; Est GFR (Non-African American) 58.6 ml/min; Potassium 4.4 mmol/L (3.5-5.1)
[2022-12-06] MEDS: lisinopril 40 MG TAB PO SCH (08:30)
[2022-12-06] MEDS: FUROSEMIDE 20 MG TAB PO SCH (08:30)
[2022-12-06] MEDS: SPIRONOLACTONE 25 MG TAB PO SCH (08:30)
[2022-12-06] MEDS: SODIUM CHLORIDE 1 GM TABLET PO SCH ×2 (08:30→17:20)
--- NOTE | 2022-12-06 08:59 | Nephrology Progress Note ---
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 Singletary was evaluated in his hospital room this morning. He was awaiting cystoscopy and voiced no new medical concerns Review of Systems Constitutional: no fever Eyes: no problem reported Ear, Nose, Mouth, Throat: no problem reported Respiratory: no cough and no dyspnea Cardiovascular: no chest pain Gastrointestinal: no abdominal pain, no nausea, no vomiting and no diarrhea/loose stools Physical Exam Constitutional: not in distress Eyes: PERRL, conjunctivae normal, anicteric sclerae ENMT: external ear and nose normal, oropharynx normal Neck: trachea midline, no thyromegaly Respiratory: normal respiratory effort, lungs clear to auscultation Cardiovascular: RRR, no murmur, no edema Gastrointestinal (Abdomen): normal bowel sounds, soft, nontender, no hepatosplenomegaly Results & Data Vital Signs (Past 12 Hours) Vital Signs Temp Pulse Pulse Resp BP Pulse Ox O2 Del Method 12/06/22 07:51 37 C 94 H 16 113/76 94 Room Air 12/06/22 06:00 78 12/06/22 03:01 37.2 C 94 H 18 107/66 95 Nasal Cannula 12/06/22 00:19 107 H 16 97 Room Air 12/05/22 23:56 129 H 12/05/22 23:38 97 H 12/05/22 22:44 36.9 C 104 H 18 128/82 90 Room Air O2 Flow Rate 12/06/22 07:51 12/06/22 06:00 12/06/22 03:01 2 12/06/22 00:19 2 12/05/22 23:56 12/05/22 23:38 12/05/22 22:44 Laboratory Results Laboratory Tests 12/06/22 12/06/22 06:18 06:18 WBC 8.10 Hgb 11.4 L Hct 33.4 L Plt Count 244 Sodium 135 L Potassium 4.4 Chloride 102 Carbon Dioxide 27 BUN 31 H Creatinine 1.11 Glucose 114 H Calcium 8.8 PG Care Time/CCT Total # of Minutes Spent Total Time Spent with Patient: Total time spent is greater than 50% in coordination of care (as documented) at patient's floor/unit and/or counseling patient: Coding Level of Care Code 54573 SUB INP/OBS CARE 3/50MIN Diagnoses Hyponatremia E87.1 Urinary retention R33.9 Hematuria R31.9 Longstanding persistent atrial fibrillation I48.11
--- NOTE | 2022-12-06 09:37 | Urology Progress Note ---
Date of Service December 06, 2022 Assessment & Plan (1) Urinary retention: (2) Hematuria: Plan With patient with significant history of prostate cancer with metastatic disease. Had come in with hematuria and clot retention. Patient was dealing with acute urinary retention. C Patient had possible hydronephrosis seen on imaging. Also distension of bladder. Likely due to chronic obstruction issues. Had previously discussed possible causes of the bleeding. Risks and benefits discussed at length for procedure. These include bleeding, infection, injury to surrounding tissues or organs, and risks associated with anesthesia. Patient states understanding and agrees to proceed. Will sign consent and schedule. Plan to move forward with cystoscopy with clot evacuation and possible biopsy/fulguration. Poss bilateral retrograde pyelograms Admission and Anticipated Discharge Date Admission Date: November 30, 2022 Subjective Patient admitted with history of prostate cancer with metastatic disease. Gross hematuria urinary retention and hydronephrosis. Patient is afebrile. Has been undergoing supportive care and hydration therapy with oral medications, IV medications, IV fluids, and oral intake. Has not had a major or considerable increase in pain or major issues. Has not developed severe vomiting or other issues. Has not experienced fever or chills. Has been tolerating oral medications. Is tolerating fluids. Has noticed some frequency and urgency. Does continue to have occasional blood. Has concerned about the ongoing issue with hydronephrosis. Has not had severe pain in the back and flank. Does have occasional burning and irritation. No severe episodes or major changes. Cr has been improving. Tachycardic this am Physical Exam Physical Exam: General: Alert in no acute distress. Obese HEENT: Normocephalic Atraumatic. Inspection normal. Cranial Nerves 2-12 Grossly intact. Normal inspection of face. Normal inspection of neck. Psychologic: Normal affect. Respiratory: Nonlabored. No use of accessory muscles. No tachypnea or dyspnea. Cardiovascular: No tachycardia Skin: [place] and Dry. No rashes or visible lesions. Extremities/Lymphatics: Severe chronic edema/edematous changes with chronic wound Abdomen: Soft Non-distended. No rebound or guarding. Results & Data Vital Signs (Past 12 Hours) Vital Signs Temp Pulse Pulse Resp BP Pulse Ox O2 Del Method 12/06/22 07:51 37 C 94 H 16 113/76 94 Room Air 12/06/22 06:00 78 12/06/22 03:01 37.2 C 94 H 18 107/66 95 Nasal Cannula 12/06/22 00:19 107 H 16 97 Room Air 12/05/22 23:56 129 H 12/05/22 23:38 97 H 12/05/22 22:44 36.9 C 104 H 18 128/82 90 Room Air O2 Flow Rate 12/06/22 07:51 12/06/22 06:00 12/06/22 03:01 2 12/06/22 00:19 2 12/05/22 23:56 12/05/22 23:38 12/05/22 22:44 PG Care Time/CCT Total # of Minutes Spent Total Time Spent with Patient: Total time spent is greater than 50% in coordination of care (as documented) at patient's floor/unit and/or counseling patient: Coding Level of Care Code 32832 SUB INP/OBS CARE 3/50MIN Diagnoses Urinary retention R33.9 Hematuria R31.9
[2022-12-06] MEDS ORDERED: LIDOCAINE 2% 2 ML VIAL/AMP(20MG/ML) INFIL ONE (09:43)
[2022-12-06] MEDS ORDERED: PROPOFOL IV EMULSION 10 MG/ML 20 ML VIAL IV ONE (09:43)
[2022-12-06] MEDS ORDERED: fentaNYL citrate PF 100 MCG/2 ML VIAL ONE (09:43)
[2022-12-06] MEDS ORDERED: ONDANSETRON INJ 2 MG/ML 2 ML VIAL ONE (09:43)
[2022-12-06] MEDS ORDERED: ONDANSETRON INJ 2 MG/ML 2 ML VIAL IV PRN (09:49)
[2022-12-06] MEDS ORDERED: fentaNYL citrate PF 100 MCG/2 ML VIAL IV PRN (09:49)
[2022-12-06] MEDS ORDERED: ATROPINE SULFATE 0.1 MG/ML 10ML SYR IV PRN (09:49)
[2022-12-06] MEDS ORDERED: ePHEDrine sulfate 50 MG/ML AMP IV PRN (09:49)
--- NOTE | 2022-12-06 09:49 | Anesthesiology Consultation ---
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 History Surgery Operation Date: 12/06/22 10:00 Proposed Procedures p Cystoscopy, clot evacution, possible biopsy - Skinny Peterson DO Height/Weight Height: 5 ft 11 in Weight: 121.3 kg Allergies Allergy/AdvReac Type Severity Reaction Status Date / Time bee venom protein (honey bee) Allergy Unknown UNKNOWN Verified 12/02/22 08:51 Penicillins Allergy Unknown RASH Verified 04/29/22 14:30 venom-wasp Allergy Unknown Unknown Verified 12/02/22 08:51 amlodipine AdvReac Severe Edema,fluid Verified 04/29/22 14:30 retention Medications Home Medications Medication Instructions Recorded Confirmed Last Taken lisinopril 40 mg tablet 40 mg PO QAM 10/20/18 11/30/22 03/21/20 metoprolol succinate 100 mg 100 mg PO HS 05/28/19 11/30/22 03/21/20 tablet,extended release 24 hr aspirin 81 mg tablet,delayed 81 mg PO QAM 02/02/20 11/30/22 11/28/22 release (Catherine Low Dose Aspirin) spironolactone 25 mg tablet 25 mg PO DAILY 12/08/21 11/30/22 Unknown furosemide 20 mg tablet 20 mg PO QAM 11/30/22 11/30/22 Unknown Active Medications Generic Name Dose Route Start Last Admin Trade Name Freq PRN Reason Stop Dose Admin Acetaminophen 650 mg 11/30/22 14:22 12/04/22 20:14 Acetaminophen 325 Mg Tab PO 12/30/22 14:21 650 mg Q4H PRN Administration Pain or Fever Furosemide 20 mg 12/03/22 13:30 12/06/22 08:30 Furosemide 20 Mg Tab PO 01/02/23 13:29 20 mg QAM NORBERTO Administration Lisinopril 40 mg 12/04/22 09:00 12/06/22 08:30 Lisinopril 40 Mg Tab PO 01/03/23 08:59 40 mg QAM NORBERTO Administration Metoprolol Succinate 50 mg 12/01/22 21:00 12/05/22 20:41 Metoprolol Succ 50mg Ext Rel Tab PO 12/31/22 20:59 50 mg HS NORBERTO Administration Sodium Chloride 2 gm 12/03/22 17:00 12/06/22 08:30 Sodium Chloride 1 Gm Tablet PO 01/02/23 16:59 2 gm [id number] NORBERTO Administration Spironolactone 25 mg 12/03/22 13:30 12/06/22 08:30 Spironolactone 25 Mg Tab PO 01/02/23 13:29 25 mg DAILY NORBERTO Administration Past Medical History Medical History Atrial fibrillation Diarrhea Diverticulosis of colon Longstanding persistent atrial fibrillation Orthostatic syncope Peripheral edema Prostate cancer Syncope Syncope Past Family History Family History Father Myocardial infarction Mother Diabetes Denies family history of Stroke Past Surgical History Surgical History History of prostatectomy 1995 Social History Smoking Status: Never smoker tobacco type: cigarettes Hx Alcohol Use: No Hx Substance Use: No Physical Exam Vital Signs Last Vital Signs Temp 98.6 F 12/06/22 07:51 Pulse 94 H 12/06/22 07:51 Resp 16 12/06/22 07:51 BP 113/76 12/06/22 07:51 Pulse Ox 94 12/06/22 07:51 O2 Del Method Room Air 12/06/22 07:51 O2 Flow Rate 2 12/06/22 03:01 Testing Laboratory Results 12/06/22 06:18 12/06/22 06:18 PT 11.6 Seconds (9.0-12.0) 11/30/22 13:45 INR 1.1 (0.9-1.1) 11/30/22 13:45 APTT 29.7 Seconds (21.0-31.0) 11/30/22 13:45 Urine Color Red 11/30/22 10:26 Urine Appearance Cloudy (Clear) A 11/30/22 10:26 Urine pH 7.0 (4.5-7.5) 11/30/22 10:26 Ur Specific [place] >= 1.030 (1.000-1.030) 11/30/22 10:26 Urine Protein 3+ (Negative) H 11/30/22 10:26 Urine Glucose (UA) Negative (Negative) 11/30/22 10:26 Urine Ketones Negative (Negative) 11/30/22 10:26 Urine Nitrite Negative (Negative) 11/30/22 10:26 Ur Leukocyte Esterase Negative (Negative) 11/30/22 10:26 Urine RBC >30 /hpf (0-4) H 11/30/22 10:26 Urine WBC >30 /hpf (0-5) H 11/30/22 10:26 Ur Epithelial Cells 0-5 /lpf (0-5) 11/30/22 10:26 11/30/22 10:26 Urine Culture - Final Urine,Clean Catch Three types of organisms present, all moderate counts. Repeat collection recommended. No further identifications or sensitivities to follow. Electrocardiogram Date: 11/30/22 Atrial fibrillation, rate 67 bpm Low voltage QRS Nonspecific ST abnormality Abnormal ECG When compared with ECG of 22-MAR-2020 12:03, Minimal criteria for Anterior infarct are no longer Present ST no longer depressed in Lateral leads Nonspecific T wave abnormality, improved in Anterolateral leads Confirmed by Jensen Lugo ([id number]) on 12/04/2022 7:29:26 AM Echocardiogram Date: 01/14/19 LV systolic function is normal No regional wall motion abnormalities Borderline concentric LVH EF 60-65% Mild MR/TR
[2022-12-06] MEDS ORDERED: ceFAZolin 330 MG/ML 1 GM VIAL ONE (10:23)
[2022-12-06] MEDS ORDERED: SODIUM CHLORIDE 0.9% PF INJ 10 ML VIAL ONE (10:23)
[2022-12-06] MEDS ORDERED: PHENYLEPHRINE HCL 10 MG/ML VIAL ONE (10:26)
[2022-12-06] MEDS ORDERED: ceFAZolin 2000MG 2,000 MG/15 ML SYR IV ONE (10:35)
[2022-12-06] MEDS ORDERED: DIATRIZOATE MEGLUMINE 30% 100ML VIAL INSTIL ONE (10:40)
--- NOTE | 2022-12-06 10:52 | Fluoroscopy Report ---
FL retrograde includes kub CLINICAL HISTORY: B/L RETROGRADES COMPARISON STUDY: None. FLUOROSCOPY TIME: 8 seconds FLUOROSCOPY IMAGES: 5 Ka,r: 3.4 mGy FINDINGS: Surgical clips noted within the deep pelvis consistent with prior prostatectomy. There is r etrograde opacification of the bilateral renal collecting systems/ureters. No hydronephrosis. IMPRESSION: Fluoroscopic assistance as above. ACT 112: Negative or not required by law. Electronically signed by: Timoteo Bourne M.D. 12/06/2022 10:51 AM
--- NOTE | 2022-12-06 11:02 | Operative Report ---
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 Contracture of bladder neck with bleeding varicosity. Ulcerated areas around bladder with 5 patches of 1-2 cm irritated/ulcerated bladder. Diverticulum of the right trigone. No significant obstruction of the ureters. No drainage issue. Majority of bleeding appeared to be bladder neck/urethra. Specimens None Drains 22Fr Silicon Catheter Anesthesia Type General Complications none Disposition Disposition: Recovery Room Indications Patient with significant hematuria. Clot retention with continued bleeding. History of metastatic prostate cancer. Risks and benefits discussed at length. Description of Procedure Patient was consented and brought back to the operating room. Patient was placed under anesthesia in the supine position and moved to the dorsal lithotomy position. Patient was prepped and draped in the regular sterile fashion. A time out was completed. A 30degree Cystoscope was placed into the urethra. Within the pendulous urethra there was significant narrowing of the urethra noted. There was no definitive obvious strictured specific area however the entire pendulous urethra was narrowed. As it moved more proximally along the urethra areas of stricture were noted and these had to be dilated in order to bypass. No severe stricture or ma felix area of concern within the bulbar urethra. Within the bladder neck and proximal urethra there was notable areas of ulceration and irritation large varicosities were noted throughout the bladder neck. The bladder neck was narrowed and scarred it appeared to have been likely dilated during the catheter placement and there were areas of what appeared to be stretched/irritated scar tissue throughout the bladder neck. The majority of bleeding appear to be coming from this area. The scope was then advanced into the bladder and the entire bladder was examined. The UO's were identified as well as the bladder neck, trigone, dome, and the other important landmarks. Numerous areas of irritated tissue were noted throughout however no severe major areas of bleeding. On the posterior wall there was 2 ulcerated appearing areas. There were 5 distinct areas of significant inflammation with ulceration throughout the bladder. The bladder neck was further assessed. Narrowing was noted however the scope was able to bypass however the tissue did appear to be recently dilated likely from the catheter placement. There was notable scar tissue throughout the entire portion and significant narrowing and a fixed thickened tissue with large areas of scarring were noted throughout. A mild amount of blood was noted in the base of the bladder with some mild debris. The blood and debris was able to be irrigated out. A diverticulum was noted on the right trigone region. Both UOs were identified. The tissue appeared to be atrophic with signs of radiation cystitis however no severe areas of inflammation were noted around the ureters bilaterally. Retrograde pyelograms were completed. Good drainage films were noted. No major areas of filling defect were noted with the bilateral retrograde pyelograms. Drainage films showed complete emptying of the ureters bilaterally. The resection scope was placed and the fine bipolar loop was selected. The areas of bleeding around the bladder neck and within the scar tissue at the bladder neck were noted. The loop was utilized to first incised the bladder neck. This drastically improved mobility. The scar tissue found was found to be significantly dense and difficult to incise. The loop was then used to shave/resect the bladder neck scar tissue down at the 3 and 9 o'clock position. This opened the bladder acting more significantly. Some areas of ulceration within the scar tissue had to be fulgurated at the 6 o'clock position. Care was taken to monitor the bladder neck and the bladder structures throughout the process. Additional areas of bleeding and irritation along the bladder neck at the 12 o'clock position were also fulgurated. Any areas of bleeding were controlled. A small amount of bleeding was noted to be coming from the diverticulum on the right trigone region on the edge. A large vein or capillary structure was noted there. This was fulgurated as well. The bladder neck was then further inspected. After the resection of the scar tissue at the lateral edges the bladder neck was more open and no major areas of bleeding were noted. The entire bladder was inspected a final time. No areas of bleeding no tumors nodules masses or other areas concern. The bladder did have appearance of significant radiation cystitis and all active areas of ulceration and bleeding had been fulgurated and controlled. Images were captured throughout the process. The bladder neck appeared to be more open. There was still dense scar tissue throughout however the scope was much more able to maneuver and move through the channel after the resection was completed. The incision did not appear to have given enough of an opening and the resection appeared to have open the problem more significantly. The scope was slowly removed with a wire remaining in the bladder. The bladder had been emptied and irrigated multiple times. All debris and clot material had been removed and and flushed clear. The urine appeared to be a light yellow color with no major signs of bleeding. All bleeding was controlled. The bladder was inspected a final time. The bladder was emptied and irrigated. All debris was removed. The scope was removed with the bladder partially full with the wire remaining in place. The areas within the pendulous urethra did appear to be irritated the dilation did cause some minor areas of bleeding. These did not appear to be severe and were likely going to be controlled with the catheter placement. The scope was fully removed with the wire in place. A catheter was placed over the wire and balloon elevated. This was easily irrigated. The patient was cleaned, aroused from anesthesia, and transferred to the pacu in stable condition having tolerated the procedure well with no comp lications. I was present and participated in all aspects of the procedure. The patient will be monitored in the PACU until transferred. We will plan to maintain the catheter for approximately 1-2 more weeks for further healing. We will likely be able to remove catheter in office after follow-up. We will plan to follow-up in approximately 1 to 2 weeks with nursing for catheter removal I attest to the content of the Intraoperative Record and any orders documented therein. Any exceptions are noted below.
--- NOTE | 2022-12-06 12:16 | Anesthesiology Progress Note ---
Date of Service December 06, 2022 Anesthesia Post Procedure Vital Signs Vital Signs: Temp Pulse Pulse Pulse Pulse Resp BP 12/06/22 11:55 97.9 F 105 H 14 139/73 12/06/22 09:50 12/06/22 11:25 98.1 F 94 H 20 105/65 12/06/22 11:15 85 17 115/81 12/06/22 11:05 87 20 120/86 12/06/22 10:58 97.5 F L 100 H 14 125/73 12/06/22 07:51 98.6 F 94 H 16 113/76 12/06/22 06:00 78 12/06/22 03:01 99.0 F 94 H 18 107/66 12/06/22 00:19 107 H 16 12/05/22 23:56 129 H 12/05/22 23:38 97 H 12/05/22 22:44 98.4 F 104 H 18 128/82 12/05/22 19:33 97.2 F L 117 H 18 128/83 12/05/22 16:21 102 H 12/05/22 15:58 97.9 F 96 H 18 137/77 12/05/22 15:07 98.4 F 83 16 130/83 Pulse Ox O2 Del Method O2 Flow Rate 12/06/22 11:55 92 Nasal Cannula 3 12/06/22 09:50 Nasal Cannula 2 12/06/22 11:25 92 Nasal Cannula 2 12/06/22 11:15 95 Oxymask 2 12/06/22 11:05 93 Oxymask 5 12/06/22 10:58 94 Oxymask 8 12/06/22 07:51 94 Room Air 12/06/22 06:00 12/06/22 03:01 95 Nasal Cannula 2 12/06/22 00:19 97 Room Air 2 12/05/22 23:56 12/05/22 23:38 12/05/22 22:44 90 Room Air 12/05/22 19:33 90 Room Air 12/05/22 16:21 12/05/22 15:58 96 Room Air 12/05/22 15:07 96 Room Air Pain Intensity Lower Chest: Pain Intensity: 3 Transfer of Care Handoff Completed per policy Notes Mental Status: alert / awake / arousable and participated in evaluation Patient Amnestic to Procedure: Yes Nausea / Vomiting: adequately controlled Pain: adequately controlled Airway Patency, RR, SpO2: stable & adequate BP & HR: stable & adequate Hydration State: stable & adequate Anesthetic Complications: no major complications apparent and Pt Satisfied with anesthetic care
[2022-12-06] MEDS: ACETAMINOPHEN 325 MG TAB PO PRN (14:57)
--- NOTE | 2022-12-06 15:39 | Hospitalist Progress Note ---
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 No mass/tumor seen Urology plans on continuing Wang catheter for 1 to 2 weeks for further healing. Follow-up with urology office after discharge Hgb Stable UA no infection, Ur cx mixed jose f (2) Hyponatremia: Plan: Na 119 on admission, prior borderline low levels but Na 138 on labs [facility] August on daughter's phone nephrology on board Sodium improved to 135 and has been stable for the last 3 days Nephrology agrees with continuing Lasix and Aldactone. Continue sodium chloride 1000 mg p.o. twice daily TSH normal and do not suspect adrenal insufficiency Appreciate Nephro consult -continue NaCl 1000mg po bid -continue to fluid restrict free water to 1000mL/day -Follow BMP in AM Nephrology on board (3) Prostate CA: Plan: Hx of, suspect progression given significant elevated PSA to 27 (per daughter most recent 14 since starting Lupron in August, 1st dose) CTAP in August w/ appearance of metastatic disease to lymph nodes Bone scan noting Small foci of radiotracer uptake within the upper cervical spine and T8 level which could represent metastatic foci. Urology consulted as above Oncology consult appreciated Need to have d/w Oncology with family and patient regarding any future treatment given advanced age, etc.--> follow up as outpatient (4) Urinary retention: Plan: suspect 2nd to clots from above urology on consult, appreciate recs/assistance -maintain Wang (5) HTN (hypertension): Plan: BP was slightly elevated since holding home lasix, aldactone, lisinopril His home metoprolol 100mg HS has also been reduced to 50mg due to bradycardia in the 30-40s overnight Blood pressures currently stable on current regimen Resume Lasix and Aldactone Lisinopril on hold monitor blood pressure (6) Atrial fibrillation: Plan: In Afib on tele here with rates in 30s overnight the first night Not on anticoagulation due to history of bleeding Rate controlled at current dose of metoprolol -Monitor on tele Plan Dispo-continued stay, PT/OT recommend return home with home health when medically stable discussed care with daughter on phone at length 12/03. Plan to discharge in the next 1 to 2 days Admission and Anticipated Discharge Date Admission Date: November 30, 2022 Subjective patient feels well overall. Just got back from cystoscopy. Draining clear urine. Review of Systems Review of Systems: All systems reviewed & are unremarkable except as noted in Subjective Physical Exam Physical Exam: General: Awake, conversant Heart: S1, S2/regular rate and rhythm, no murmur rubs or gallops Lungs: Clear to auscultation bilaterally. Normal effort Abdomen: Soft/nontender/nondistended. No hepatosplenomegaly Extremities: No clubbing/cyanosis. 1+ pitting edema bilaterally Behavior: Appropriate, cooperative Results & Data Results & Data Vital Signs (Past 12 Hours) Vital Signs Temp Pulse Pulse Pulse Pulse Resp BP 12/06/22 11:55 36.6 C 105 H 14 139/73 12/06/22 09:50 12/06/22 11:25 36.7 C 94 H 20 105/65 12/06/22 11:15 85 17 115/81 12/06/22 11:05 87 20 120/86 12/06/22 10:58 36.4 C L 100 H 14 125/73 12/06/22 07:51 37 C 94 H 16 113/76 12/06/22 06:00 78 Pulse Ox O2 Del Method O2 Flow Rate 12/06/22 11:55 92 Nasal Cannula 3 12/06/22 09:50 Nasal Cannula 2 12/06/22 11:25 92 Nasal Cannula 2 12/06/22 11:15 95 Oxymask 2 12/06/22 11:05 93 Oxymask 5 12/06/22 10:58 94 Oxymask 8 12/06/22 07:51 94 Room Air 12/06/22 06:00 Laboratory Results Abnormal lab results 12/06/22 12/06/22 Range/Units 06:18 06:18 RBC 3.70 L (4.70-6.10) M/uL Hgb 11.4 L (14.0-18.0) g/dl Hct 33.4 L (42.0-52.0) % Sodium 135 L (136-145) mmol/L BUN 31 H (6-23) mg/dl BUN/Creatinine Ratio 27.9 H (10-20) Glucose 114 H (70-99(Fasting)) mg/dl Diagnostic Findings Retrograde Pyelogram 12/06/22 00:00 FL retrograde includes kub CLINICAL HISTORY: B/L RETROGRADES COMPARISON STUDY: None. FLUOROSCOPY TIME: 8 seconds FLUOROSCOPY IMAGES: 5 Ka,r: 3.4 mGy FINDINGS: Surgical clips noted within the deep pelvis consistent with prior prostatectomy. There is retrograde opacification of the bilateral renal collecting systems/ureters. No hydronephrosis. IMPRESSION: Fluoroscopic assistance as above. ACT 112: Negative or not required by law. Electronically signed by: Timoteo Bourne M.D. 12/06/2022 10:51 AM PG Care Time/CCT Total # of Minutes Spent Total Time Spent with Patient: Total time spent is greater than 50% in coordination of care (as documented) at patient's floor/unit and/or counseling patient: Coding Level of Care Code 54073 SUB INP/OBS CARE 2/35MIN Diagnoses Hematuria R31.9 Hyponatremia E87.1 Prostate CA C61 Urinary retention R33.9 HTN (hypertension) I10 Atrial fibrillation I48.91
[2022-12-06] MEDS: METOPROLOL SUCC 50MG EXT REL TAB PO SCH (21:26)
--- NOTE | 2022-12-07 07:31 | Urology Progress Note ---
Date of Service December 07, 2022 Assessment & Plan (1) Urinary retention: (2) Hematuria: Plan 87 yo M with hx of prostate cancer s/p prostatectomy and radiation therapy admitted for hematuria, urinary retention and hyponatremia. POD #1 s/p Cystoscopy with clot evacuation, urethral dilation, Resection of bladder neck, incision of bladder neck, fulguration of bladder lesions, and bilateral retrograde pyelogram. Afebrile, BP running low today. Labs reviewedcreatinine 1.41, WBC 7.79, hemoglobin 10.7. Continue to trend. Fried draining clear yellow urine. Plan to maintain Fried catheter for 1-2 weeks to allow further time for healing. Will arrange outpatient follow-up for catheter removal and continued care. Continue supportive care. Urology will follow peripherally. Please contact us with any further questions, concerns, or changes in patient status. Admission and Anticipated Discharge Date Admission Date: November 30, 2022 Subjective Patient examined at bedside this AM. Awake, sitting in bedside chair on arrival. No acute distress. Daughter at bedside. Denies any pain or discomfort at present. Fried draining clear yellow urine. Denies fevers, chills, nausea, vomiting. Review of Systems Constitutional: as per Subjective / HPI Gastrointestinal: as per Subjective / HPI Genitourinary: + as per Subjective / HPI Physical Exam Constitutional: no acute distress Respiratory: no respiratory distress and no labored breathing Skin: No visible rashes or lesions to exposed skin areas Neurologic: awake Psychiatric: A+Ox3, euthymic affect Genitourinary: Urine is clear yellow Results & Data Vital Signs (Past 12 Hours) Vital Signs Temp Pulse Pulse Resp BP Pulse Ox O2 Del Method 12/07/22 07:17 36.4 C L 105 H 18 105/71 94 Nasal Cannula 12/07/22 04:00 36.8 C 94 H 16 104/70 94 Nasal Cannula 12/07/22 00:26 93 H 12/06/22 23:53 36.8 C 106 H 18 127/72 95 Room Air 12/06/22 19:53 36.4 C L 100 H 18 99/63 L 93 Nasal Cannula O2 Flow Rate 12/07/22 07:17 1 12/07/22 04:00 1 12/07/22 00:26 12/06/22 23:53 12/06/22 19:53 1 PG Care Time/CCT Total # of Minutes Spent Total Time Spent with Patient: Total time spent is greater than 50% in coordination of care (as documented) at patient's floor/unit and/or counseling patient: Coding Level of Care Code 90898 SUB INP/OBS CARE 1/25MIN Diagnoses Urinary retention R33.9 Hematuria R31.9
[2022-12-07 07:46] LABS: Hematocrit (blood only) 32.3 % (42.0-52.0); Hemoglobin 10.7 g/dl (14.0-18.0); Mean Corpuscular Hemoglobin 30.7 pg (25.0-34.0); Mean Corpuscular Hgb Conc 33.1 g/dL (32.0-36.0); Mean Corpuscular Volume 92.6 fL (80.0-100.0); Mean Platelet Volume 9.6 fL (9.4-12.4); Platelet Count 196 K/uL (130-400); RDW Coefficient of Variation 13.6 % (11.5-14.5); RDW Standard Deviation 46.2 fL (36.4-46.3); Red Blood Count 3.49 M/uL (4.70-6.10); White Blood Count 7.79 K/ul (4.8-10.8)
[2022-12-07 07:58] LABS: BUN Creatinine Ratio 31.9 (10-20); Calcium 8.6 mg/dl (8.6-10.3); Creatinine Clr Calc Pharmacy 47.4 ml/min; Est GFR (African American) 50.8 ml/min; Est GFR (Non-African American) 43.9 ml/min; Potassium 4.9 mmol/L (3.5-5.1)
[2022-12-07] MEDS: FUROSEMIDE 20 MG TAB PO SCH (08:04)
[2022-12-07] MEDS: SPIRONOLACTONE 25 MG TAB PO SCH (08:04)
[2022-12-07] MEDS: SODIUM CHLORIDE 1 GM TABLET PO SCH ×2 (08:05→16:52)
[2022-12-07] MEDS: lisinopril 40 MG TAB PO SCH (08:14)
--- NOTE | 2022-12-07 08:43 | Nephrology Progress Note ---
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 Majorit y of bleeding was from bladder neck/urethra. Fulguration performed (4) Longstanding persistent atrial fibrillation: Admission and Anticipated Discharge Date Admission Date: November 30, 2022 Subjective Mr. Singletary was evaluated in his hospital room this morning. He is tolerating NaCl supplement without GI upset. He requests loosening of his free water restriction Review of Systems Constitutional: no fever Eyes: no problem reported Ear, Nose, Mouth, Throat: no problem reported Respiratory: no cough and no dyspnea Cardiovascular: no chest pain Gastrointestinal: no abdominal pain, no nausea, no vomiting and no diarrhea/loose stools Physical Exam Constitutional: not in distress Eyes: PERRL, conjunctivae normal, anicteric sclerae ENMT: external ear and nose normal, oropharynx normal Neck: trachea midline, no thyromegaly Respiratory: normal respiratory effort, lungs clear to auscultation Cardiovascular: RRR, no murmur, no edema Gastrointestinal (Abdomen): normal bowel sounds, soft, nontender, no hepatosplenomegaly Results & Data Vital Signs (Past 12 Hours) Vital Signs Temp Pulse Pulse Resp BP Pulse Ox O2 Del Method 12/07/22 08:10 101/55 L 12/07/22 08:09 98/64 L 12/07/22 07:17 36.4 C L 105 H 18 105/71 94 Nasal Cannula 12/07/22 04:00 36.8 C 94 H 16 104/70 94 Nasal Cannula 12/07/22 00:26 93 H 12/06/22 23:53 36.8 C 106 H 18 127/72 95 Room Air O2 Flow Rate 12/07/22 08:10 12/07/22 08:09 12/07/22 07:17 1 12/07/22 04:00 1 12/07/22 00:26 12/06/22 23:53 Laboratory Results Laboratory Tests 12/07/22 12/07/22 07:14 07:14 WBC 7.79 Hgb 10.7 L Hct 32.3 L Plt Count 196 Sodium 136 Potassium 4.9 Chloride 103 Carbon Dioxide 29 BUN 45 H Creatinine 1.41 H D Glucose 108 H PG Care Time/CCT Total # of Minutes Spent Total Time Spent with Patient: Total time spent is greater than 50% in coordination of care (as documented) at patient's floor/unit and/or counseling patient: Coding Level of Care Code 09085 SUB INP/OBS CARE 3/50MIN Diagnoses Hyponatremia E87.1 Urinary retention R33.9 Hematuria R31.9 Longstanding persistent atrial fibrillation I48.11
--- NOTE | 2022-12-07 14:03 | Hospitalist Progress Note ---
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 No mass/tumor seen Urology plans on continuing Wang catheter for 1 to 2 weeks for further healing. Follow-up with urology office after discharge Hgb Stable UA no infection, Ur cx mixed jose f (2) Hyponatremia: Plan: Na 119 on admission, prior borderline low levels but Na 138 on labs [facility] on daughter's phone nephrology on board Sodium improved to 135 and has been stable for the last 3 days Nephrology agrees with continuing Lasix and Aldactone. Continue sodium chloride 1000 mg p.o. twice daily TSH normal and do not suspect adrenal insufficiency Appreciate Nephro consult -continue NaCl 1000mg po bid - nephrology has liberalized fluid restriction to 1500 cc/day -Follow BMP in AM Nephrology on board (3) Prostate CA: Plan: Hx of, suspect progression given significant elevated PSA to 27 (per daughter most recent 14 since starting Lupron in August, 1st dose) CTAP in August w/ appearance of metastatic disease to lymph nodes Bone scan noting Small foci of radiotracer uptake within the upper cervical spine and T8 level which could represent metastatic foci. Urology consulted as above Oncology consult appreciated Need to have d/w Oncology with family and patient regarding any future treatment given advanced age, etc.--> follow up as outpatient (4) Urinary retention: Plan: suspect 2nd to clots from above urology on consult, appreciate recs/assistance -maintain Wang (5) HTN (hypertension): Plan: blood pressure has been on the low side today. Patient felt dizzy while walking. He got Lasix and Aldactone this morning His creatinine is slightly bumped at 1.4 today considering giving him some IV fluid. Hold Lasix, Aldactone and lisinopril (6) Atrial fibrillation: Plan: In Afib on tele here with rates in 30s overnight the first night Not on anticoagulation due to history of bleeding Rate controlled at current dose of metoprolol -Monitor on tele Plan Dispo-continued stay, PT/OT recommend return home with home health when medically stable discussed care with daughter at the bedside today 12/07. Plan to discharge in the next 1 to 2 days Admission and Anticipated Discharge Date Admission Date: November 30, 2022 Subjective patient feels well. Denies chest pain or shortness of breath. Accompanied by his daughter in the room. Urine appears clear today Review of Systems Review of Systems: All systems reviewed & are unremarkable except as noted in Subjective Physical Exam Physical Exam: General: Awake, conversant Heart: S1, S2/regular rate and rhythm, no murmur rubs or gallops Lungs: Clear to auscultation bilaterally. Normal effort Abdomen: Soft/nontender/nondistended. No hepatosplenomegaly Extremities: No clubbing/cyanosis. 1+ pitting edema bilaterally Behavior: Appropriate, cooperative Results & Data Results & Data Vital Signs (Past 12 Hours) Vital Signs Temp Pulse Pulse Resp BP BP Pulse Ox 12/07/22 11:34 12/07/22 11:31 103 H 12/07/22 11:06 36.4 C L 90 16 84/57 L 98 12/07/22 08:10 101/55 L 12/07/22 08:09 98/64 L 12/07/22 07:17 36.4 C L 105 H 18 105/71 94 12/07/22 04:00 36.8 C 94 H 16 104/70 94 O2 Del Method O2 Flow Rate 12/07/22 11:34 Nasal Cannula 1 12/07/22 11:31 12/07/22 11:06 Nasal Cannula 1 12/07/22 08:10 12/07/22 08:09 12/07/22 07:17 Nasal Cannula 1 12/07/22 04:00 Nasal Cannula 1 PG Care Time/CCT Total # of Minutes Spent Total Time Spent with Patient: Total time spent is greater than 50% in coordination of care (as documented) at patient's floor/unit and/or counseling patient: Coding Level of Care Code 99482 SUB INP/OBS CARE 2/35MIN Diagnoses Hematuria R31.9 Hyponatremia E87.1 Prostate CA C61 Urinary retention R33.9 HTN (hypertension) I10 Atrial fibrillation I48.91
[2022-12-07] MEDS: SODIUM CHLORIDE 0.9% 500 ML IV SCH ×2 (16:01→23:00)
[2022-12-07] MEDS: METOPROLOL SUCC 50MG EXT REL TAB PO SCH ×2 (20:15→21:18)
[2022-12-08] MEDS: SODIUM CHLORIDE 0.9% 500 ML IV SCH ×2 (05:34→12:05)
--- NOTE | 2022-12-08 07:36 | Hospitalist Progress Note ---
Date of Service December 08, 2022 Assessment & Plan (1) Hematuria: Plan: 12/2022 cystoscopy did not specifically indicate any immediate concern for a metachronous primary bladder malignancy. Hematuria seems to significantly improved. (2) Prostate CA: Plan: As per previous, can certainly discuss additional interventions for the prostate cancer but those are not likely to immediately impact his clinical situation. Plan Anticipate discharge with Fried catheter in place and close urology follow-up. We can also coordinate outpatient follow-up for his prostate cancer to review longer-term supplemental options to his current ADT Admission and Anticipated Discharge Date Admission Date: November 30, 2022 Results & Data Results & Data Vital Signs (Past 12 Hours) Vital Signs Temp Pulse Pulse Resp BP Pulse Ox O2 Del Method 12/08/22 03:00 36.4 C L 80 20 102/69 96 Nasal Cannula 12/07/22 21:59 97 H 12/07/22 22:00 37 C 98 H 20 100/64 94 Nasal Cannula 12/07/22 21:46 Nasal Cannula 12/07/22 21:17 98 H 109/69 12/07/22 20:14 87 97/65 L 96 Nasal Cannula O2 Flow Rate 12/08/22 03:00 2 12/07/22 21:59 12/07/22 22:00 2 12/07/22 21:46 1 12/07/22 21:17 12/07/22 20:14 1 PG Care Time/CCT Total # of Minutes Spent Total Time Spent with Patient: Total time spent is greater than 50% in coordination of care (as documented) at patient's floor/unit and/or counseling patient: Coding Level of Care Code None Diagnoses Hematuria R31.9 Prostate CA C61
[2022-12-08] MEDS: SODIUM CHLORIDE 1 GM TABLET PO SCH (08:04)
[2022-12-08 08:08] LABS: Hematocrit (blood only) 31.5 % (42.0-52.0); Hemoglobin 10.3 g/dl (14.0-18.0); Mean Corpuscular Hemoglobin 30.6 pg (25.0-34.0); Mean Corpuscular Hgb Conc 32.7 g/dL (32.0-36.0); Mean Corpuscular Volume 93.5 fL (80.0-100.0); Mean Platelet Volume 9.5 fL (9.4-12.4); Platelet Count 181 K/uL (130-400); RDW Coefficient of Variation 13.4 % (11.5-14.5); RDW Standard Deviation 46.2 fL (36.4-46.3); Red Blood Count 3.37 M/uL (4.70-6.10); White Blood Count 5.75 K/ul (4.8-10.8)
[2022-12-08 08:31] LABS: BUN Creatinine Ratio 40.2 (10-20); Calcium 8.5 mg/dl (8.6-10.3); Creatinine Clr Calc Pharmacy 50.8 ml/min; Est GFR (Non-African American) 47.5 ml/min; Potassium 4.8 mmol/L (3.5-5.1)
--- NOTE | 2022-12-08 09:07 | Nephrology Progress Note ---
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 Will need close Urology follow up as well (2) Urinary retention: Plan: * Resolved following cystoscopy w/ dilation of urethral stricture (3) Hematuria: Plan: * 12/06/22 Cystoscopy: Urethral stricture dilated, bladder neck incised. Majority of bleeding was from bladder neck/urethra. Fulguration performed (4) Longstanding persistent atrial fibrillation: Admission and Anticipated Discharge Date Admission Date: November 30, 2022 Subjective Mr. Singletary was evaluated in his hospital room this morning. He is tolerating NaCl supplement without GI upset. His Fried catheter has been removed. He is voiding without difficulty and denies gross hematuria. Mr. Singletary is anxious to return home Review of Systems Constitutional: no fever Eyes: no problem reported Ear, Nose, Mouth, Throat: no problem reported Respiratory: no cough and no dyspnea Cardiovascular: no chest pain Gastrointestinal: no abdominal pain, no nausea, no vomiting and no di arrhea/loose stools Physical Exam Constitutional: not in distress Eyes: PERRL, conjunctivae normal, anicteric sclerae ENMT: external ear and nose normal, oropharynx normal Neck: trachea midline, no thyromegaly Respiratory: normal respiratory effort, lungs clear to auscultation Cardiovascular: RRR, no murmur, no edema Gastrointestinal (Abdomen): normal bowel sounds, soft, nontender, no hepatosplenomegaly Results & Data Vital Signs (Past 12 Hours) Vital Signs Temp Pulse Pulse Resp BP BP Pulse Ox 12/08/22 08:17 36.7 C 84 16 122/75 96 12/08/22 03:00 36.4 C L 80 20 102/69 96 12/07/22 21:59 97 H 12/07/22 22:00 37 C 98 H 20 100/64 94 12/07/22 21:46 12/07/22 21:17 98 H 109/69 O2 Del Method O2 Flow Rate 12/08/22 08:17 Room Air 12/08/22 03:00 Nasal Cannula 2 12/07/22 21:59 12/07/22 22:00 Nasal Cannula 2 12/07/22 21:46 Nasal Cannula 1 12/07/22 21:17 Laboratory Results Laboratory Tests 12/08/22 12/08/22 07:42 07:42 WBC 5.75 Hgb 10.3 L Hct 31.5 L Plt Count 181 Sodium 139 Potassium 4.8 Chloride 107 Carbon Dioxide 28 BUN 53 H Creatinine 1.32 Glucose 100 H Calcium 8.5 L PG Care Time/CCT Total # of Minutes Spent Total Time Spent with Patient: Total time spent is greater than 50% in coordination of care (as documented) at patient's floor/unit and/or counseling patient: Coding Level of Care Code 55384 SUB INP/OBS CARE 3/50MIN Diagnoses Hyponatremia E87.1 Urinary retention R33.9 Hematuria R31.9 Longstanding persistent atrial fibrillation I48.11
[2022-12-08] MEDS ORDERED: SODIUM CHLORIDE 1 GM TABLET PO SCH (09:15)
--- NOTE | 2022-12-08 12:54 | Discharge Summary ---
Date of Service December 08, 2022 Admission HPI Per Admitting Provider 87yo male with PMHx significant for prostate ca initially following Dr armenta with recurrence in 2005 and underwent radiation. Subsequently had biochemical recurrence and utilizing intermittent ADT. Most recent PSA 14 per report (system last PSA 17) and has been on Q6h month Lupron therapy and daily bicalutamide 50mg. Most recent CTAP imaging w/ interval development of pathologic periaortic, pericaval and iliac chain lymph nodes suspicious for metastasis. (no evidence of skeletal metastasis at that time, however bone scan notes small foci uptake within upper cervical spine/T8 which could represent metastatic foci) Reports ongoing hematuria since last /Tuesday, discussed with his daughter who is a nurse and reports having recommended him increasing his oral intake. He reports holding his aspirin for the past 2 days as well to help. She notes he always has some amount of bleeding in the urine that they don't typically worry about but with larger clots this morning, concerning to bring for evaluation. Reports having some small amount of urine this morning enough to give a sample but feels like he has a clot blocking passage of urine. Daughter at bedside, notes they had recently started Lasix 20mg PO daily to help with leg swelling, suspect contributing to hyponatremia as well. Denies any excessive fluid intake/gallons but had been pushing fluids. Decreased appetite for past 1-2 days (per daughter x 1 day, is typically a 3-4 meal a day kind of mara). Had some dizziness/weakness this morning, no chest pain/shortness of breath. Denies abdominal pain, does have some nausea. Waiting for zofran (per daughter, 3 people have been getting this -- will contact RN to provide) Issues with moving his bowels at baseline as well, +_BS on exam. UA on admission with 3+ protein, 3+ blood, >30 RBC, >30 WBC. No bacteria. Urine cx pending. Na 119, Chlo 85. BUN/Cr 18/0.87 Discussed with patient that I spoke with w/ Urology and obtaining CTAP w/o IV contrast, repeat PSA pending (per daughter was to obtain this level today), and placement of wang but will defer to Urology for placement of possible three way catheter for CBI. Serial BMP/nephrology consult for hyponatremia. Checking urine OSM/urine Na/Serum Osm. Discussed code status with patient/daughter, confirmed DNR. Admission Exam Per Admitting Provider General : WN obese male laying in hospital bed, NAD but fatigued appearing HEENT: head normocephalic, atraumatic, mm DRY, trachea midline Resp: no w/c/rales, no distress, on room air CV: irregularly irregular (rates 50-60s), no significant m/r/g, b/l edema at baseline (reports having taken lasix, wraps in place for compression, not removed) GI: +BS, slight distension, soft, nontender : no wang MSK/Neuro: no slurred speech/facial droop, follows commands, no focal deficits, answering questions appropriately, generalized weakness Psych: alert, oriented x 3, fatigued appearing Principal Diagnosis 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 Now resolved. Maintain Wang for now Discharge Exam General: Awake, conversant Heart: S1, S2/regular rate and rhythm, no murmur rubs or gallops Lungs: Clear to auscultation bilaterally. Normal effort Abdomen: Soft/nontender/nondistended. No hepatosplenomegaly Extremities: No clubbing/cyanosis. 1+ pitting edema bilaterally Behavior: Appropriate, cooperative Discharge Data Allergies Allergy/AdvReac Type Severity Reaction Status Date / Time bee venom protein (honey bee) Allergy Unknown UNKNOWN Verified 12/02/22 08:51 Penicillins Allergy Unknown RASH Verified 04/29/22 14:30 venom-wasp Allergy Unknown Unknown Verified 12/02/22 08:51 amlodipine AdvReac Severe Edema,fluid Verified 04/29/22 14:30 retention Consultations 11/30/22 11:25 ED Decision to Admit Stat 11/30/22 11:30 Consult Urology Routine 11/30/22 11:34 Consult Nephrology Routine 11/30/22 15:17 Consult Hematology Routine 12/08/22 11:22 [facility] [place] Routine Procedures Performed Operation Date: 12/06/22 10:00 Actual Procedures p Cystoscopy, clot evacution, urethral dilation, incision of bladder neck, fulguration of bladder lesions, bilateral retrograde pyelogram(Not Applicable) - Skinny Peterson, Ordered Studies 11/30/22 11:31 CT abd pelvis wo con Urgent 12/06/22 [place] retrograde includes kub Routine Hospital Course (1) Hematuria: Likely due to radiation cystitis Status post cystoscopy done on 12/06 which showed ulcerated areas around bladder with 5 patches of 1 to 2 cm irritated/ulcerated bladder. No mass/tumor seen Urology plans on continuing Wang catheter for 1 to 2 weeks for further healing. Follow-up with urology office after discharge Hgb Stable UA no infection, Ur cx mixed jose f (2) Hyponatremia: Na 119 on admission, prior borderline low levels but Na 138 on labs [facility] August on daughter's phone nephrology on board Sodium improved to 139 and has been stable for the last few days I spoke to nephrology after their note was in today. Dr. Delgado recommended that I discharge the patient off of Lasix, Aldactone, salt tablets, lisinopril. He recommended that I start him on p.o. Bumex 0.5 mg daily. He recommended that he follow-up with the CHF clinic. (3) Prostate CA: Hx of, suspect progression given significant elevated PSA to 27 (per daughter most recent 14 since starting Lupron in August, 1st dose) CTAP in August w/ appearance of metastatic disease to lymph nodes Bone scan noting Small foci of radiotracer uptake within the upper cervical spine and T8 level which could represent metastatic foci. Urology consulted as above Oncology consult appreciated Need to have d/w Oncology with family and patient regarding any future treatment given advanced age, etc.--> follow up as outpatient (4) Urinary retention: suspect 2nd to clots from above urology on consult, appreciate recs/assistance Resolved -maintain Wang upon discharge. Likely removal in 1 to 2 weeks (5) HTN (hypertension): blood pressure is stable today Discharge off of Lasix, Aldactone, lisinopril. Continue metoprolol 50 Start Bumex 0.5 mg per nephrology verbal recommendation (6) Atrial fibrillation: In Afib on tele here with rates in 30s overnight the first night Not on anticoagulation due to history of bleeding Rate controlled at current dose of metoprolol Plan Dispo-continued stay, PT/OT recommend return home with home health when medically stable discharge to home today. Discussed the plan with daughter in detail today Total Time Total Time Spent Total Time Spent (In Minutes): 35 Discharge Plan Discharge Items Patient Disposition: Home - Home Health Services Reason For Visit: HEMATURIA,HYPOTREMIA,WEAKNESS Discharge Diagnosis: Hematuria, likely due to radiation cystitis Hyponatremia Activity: Resume your previous activity Non-emergency contact: Primary Care Provider Call non-emergency contact if: you have any medication questions and your symptoms worsen Follow-up/Referrals: [facility] [Primary Care Provider] - (PLEASE CALL YOUR PRIMARY CARE PROVIDER TO SCHEDULE A HOSPITAL FOLLOW-UP DISCHARGE APPOINTMENT WITHIN 7-10 DAYS) Diet: Heart Healthy Addtl Attending Provider Instructions: Advised to follow-up with PCP in 1 week Advised to follow-up with urology in 1 week Advised to follow-up in the CHF clinic in 1 week Pending Studies at Discharge: No Stand-Alone Forms: My [facility] [employer] Medications and DC Order Prescriptions: New metoprolol succinate 50 mg Tablet Extended Release 24 Hr 50 mg PO HS 30 Days Qty: 30 0RF bumetanide 0.5 mg tablet 0.5 mg PO DAILY 30 Days Qty: 30 0RF Discontinued lisinopril 40 mg tablet 40 mg PO QAM spironolactone 25 mg tablet 25 mg PO DAILY metoprolol succinate 100 mg tablet extended release 24 hr 100 mg PO HS aspirin [Catherine Low Dose Aspirin] 81 mg Tablet,Delayed Release (Dr/Ec) 81 mg PO QAM furosemide 20 mg Tablet 20 mg PO QAM Discharge Orders: Discharge Order (Routine); Ordered 12/08/22 Ordered By: Rashida Wynn Admission Data Admit Date/Time: 11/30/22 12:04 Attending Provider: Rashida Wynn Admit Provider: Duane Celeste Primary Care Provider: [facility] Other Providers: Duane Celeste ; Erik Wayne Kevin C. ; Nava Miner ; Stacey Marie ; [facility] Other Interventions: Discharge Summary Assessment (RN) Last Done: 12/08/22 13:14 Coding Level of Care Code 90867 INP/OBS DISCH >30 MIN Diagnoses Hematuria R31.9 Hyponatremia E87.1 Prostate CA C61 Urinary retention R33.9 HTN (hypertension) I10 Atrial fibrillation I48.91
== END 2022-12-08 14:30 | disposition home health service (06) | DRG 669 ==
LOC: ED 09:32 → 2N 12:04 → SUATTDRO 12:04 → 2N 13:57